=== PATIENT | female | born 1955 | race Caucasian/White ===

== ENCOUNTER 2021-01-28 11:50 | Inpatient (IN) | payer MEDICARE, MEDICAID ==
[~2021-01-28] VITALS: Ht 172.7 cm; Wt 91.3 kg
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
[2021-01-28] MEDS ORDERED: HALOPERIDOL 5 MG TABLET PO PRN (13:30)
[2021-01-28] MEDS ORDERED: DOCUSATE SODIUM 100 MG CAPSULE PO PRN (13:30)
[2021-01-28] MEDS ORDERED: NON FORMULARY ITEM (Menthol (Biofreeze) 1 APP) TP PRN (13:30)
[2021-01-28] MEDS ORDERED: DOCU-109 PO (14:13)
[2021-01-28] MEDS ORDERED: CYAN-9 PO (14:13)
[2021-01-28] MEDS ORDERED: HALO100A2 IM (14:13)
[2021-01-28] MEDS ORDERED: MELA5TAB11 SL (14:13)
[2021-01-28] MEDS ORDERED: CALC500T31 PO (14:13)
[2021-01-28] MEDS ORDERED: POLY2500 PO (14:13)
[2021-01-28] MEDS ORDERED: DIPH50CA16 PO (14:13)
[2021-01-28] MEDS ORDERED: MENT118G TP (14:13)
[2021-01-28] MEDS ORDERED: TRAZ-120 PO ×2 (14:13)
[2021-01-28] MEDS ORDERED: NYST15PO9 TP (14:13)
[2021-01-28] MEDS ORDERED: CHOL500050 PO (14:13)
[2021-01-28] MEDS ORDERED: LORA-254 PO (14:13)
[2021-01-28] MEDS ORDERED: CARB15DR65 EACHEYE (14:13)
[2021-01-28] MEDS ORDERED: METH57CR17 TP (14:13)
[2021-01-28] MEDS ORDERED: HALO5TAB PO (14:13)
[2021-01-28] MEDS ORDERED: IBUP400T99 PO (14:13)
[2021-01-28] MEDS ORDERED: ACET325T21 PO (14:13)
[2021-01-28] MEDS ORDERED: POLYETHYLENE GLYCOL 3350 17 GM PACKET. PO PRN (14:30)
[2021-01-28 15:55] VITALS: BP 135/84
--- NOTE | 2021-01-28 16:52 | EKG ---
[address] [address] Test Date: 2021-01-28 Test Time: 16:34:20 Pat Name: MENDOZA SCHULZ Department: Room: [address] [place] [address] Gender: F [employer] Manager: : 1955 Requested By: LUPE CASTELLANOS Order Number: [id number] Reading MD: Samir Landry Measurements Intervals [place] Rate: 66 P: CA: QRS: 49 QRSD: 82 T: 46 QT: 416 QTc: 438 Interpretive Statements PROBABLE SINUS RHYTHM BASELINE ARTIFACT - RECOMMEND REPEAT EKG Electronically Signed On 01-30-2021 7:21:37 CHERRY DIPPER by Samir Landry
[2021-01-28 19:52] LABS: BASO % 1 % (0-3); EOS # 0.2 x10^3/uL (0.0-0.7); EOS % 5 % (0-3); HEMATOCRIT 37.1 % (36.0-47.0); HEMOGLOBIN 12.3 g/dL (12.0-15.5); LYMPH # 1.5 x10^3/uL (1.0-4.8); LYMPH % 28 % (24-48); MEAN CORPUSCULAR HEMOGLOBIN 28 pg (25-35); MEAN CORPUSCULAR HGB CONC 33 g/dL (31-37); MEAN CORPUSCULAR VOLUME 85 fL (79-100); MONO # 0.4 x10^3/uL (0.0-1.1); MONO % 8 % (0-9); NEUT # 3.1 x10^3uL (1.8-7.7); NEUT % 59 % (31-73); PLATELET COUNT 319 x10^3/uL (140-400); RED BLOOD COUNT 4.36 x10^6/uL (3.50-5.40); RED CELL DISTRIBUTION WIDTH 14.1 % (11.5-14.5); WHITE BLOOD COUNT 5.3 x10^3/uL (4.0-11.0)
[2021-01-28 20:15] LABS: ALBUMIN 3.3 g/dL (3.4-5.0); ALBUMIN/GLOBULIN RATIO 0.9 (1.0-1.7); CALCIUM 8.6 mg/dL (8.5-10.1); POTASSIUM 3.5 mmol/L (3.5-5.1); TOTAL BILIRUBIN 0.3 mg/dL (0.2-1.0); TOTAL PROTEIN 6.8 g/dL (6.4-8.2)
--- NOTE | 2021-01-28 20:34 | PDOC ---
Exam Note: Brannon Note: Please also refer to the separate dictated note~for this date of service dictated separately.~Patient seen individually. Discussed the patient with Nursing staff reviewed the chart.~Reviewed interim history and current functioning. Reviewed vital signs,~Labs/ Radiology~and current medications noted below. Continue current treatment with the changes noted in the dictated addendum note Assessment: Vital Signs/I&O: Vital Signs Date Time Temp Pulse Resp B/P (MAP) Pulse Ox O2 Delivery O2 Flow Rate FiO2 01/28/21 15:55 98.0 77 20 135/84 (101) 96 Labs: Laboratory Tests Test 01/28/21 19:15 White Blood Count 5.3 x10^3/uL (4.0-11.0) Red Blood Count 4.36 x10^6/uL (3.50-5.40) Hemoglobin 12.3 g/dL (12.0-15.5) Hematocrit 37.1 % (36.0-47.0) Mean Corpuscular Volume 85 fL (79-100) Mean Corpuscular Hemoglobin 28 pg (25-35) Mean Corpuscular Hemoglobin Concent 33 g/dL (31-37) Red Cell Distribution Width 14.1 % (11.5-14.5) Platelet Count 319 x10^3/uL (140-400) Neutrophils (%) (Auto) 59 % (31-73) Lymphocytes (%) (Auto) 28 % (24-48) Monocytes (%) (Auto) 8 % (0-9) Eosinophils (%) (Auto) 5 % (0-3) H Basophils (%) (Auto) 1 % (0-3) Neutrophils # (Auto) 3.1 x10^3uL (1.8-7.7) Lymphocytes # (Auto) 1.5 x10^3/uL (1.0-4.8) Monocytes # (Auto) 0.4 x10^3/uL (0.0-1.1) Eosinophils # (Auto) 0.2 x10^3/uL (0.0-0.7) Basophils # (Auto) 0.0 x10^3/uL (0.0-0.2) D-Dimer (Viridiana) 0.71 mg/L (0.00-0.50) H Sodium Level 145 mmol/L (136-145) Potassium Level 3.5 mmol/L (3.5-5.1) Chloride Level 107 mmol/L (98-107) Carbon Dioxide Level 28 mmol/L (21-32) Anion Gap 10 (6-14) Blood Urea Nitrogen 10 mg/dL (7-20) Creatinine 1.0 mg/dL (0.6-1.0) Estimated GFR (Cockcroft-Gault) 56.0 BUN/Creatinine Ratio 10 (6-20) Glucose Level 101 mg/dL (70-99) H Calcium Level 8.6 mg/dL (8.5-10.1) Magnesium Level 2.0 mg/dL (1.8-2.4) Total Bilirubin 0.3 mg/dL (0.2-1.0) Aspartate Amino Transferase (AST) 8 U/L (15-37) L Alanine Aminotransferase (ALT) 15 U/L (14-59) Alkaline Phosphatase 98 U/L (46-116) Total Protein 6.8 g/dL (6.4-8.2) Albumin 3.3 g/dL (3.4-5.0) L Albumin/Globulin Ratio 0.9 (1.0-1.7) L Current Medications: I have reviewed the current psychotropics carefully including drug interactions. Risk benefit ratio favors no change other than as noted in my dictated progress note. LUPE CASTELLANOS MD Jan 28, 2021 20:34
[2021-01-28] MEDS: NYSTATIN TOPICAL POWDER 15GM BOTTLE. TP SCH (20:52)
[2021-01-28] MEDS: traZODone 50 MG TABLET. PO SCH (20:53)
[2021-01-28] MEDS: DIVALPROEX ER 500 MG TAB.ER.24H PO SCH (20:53)
[2021-01-28] MEDS: MELATONIN 3 MG TABLET PO SCH (20:53)
[2021-01-28] MEDS: METHYL SALICYLATE/MENTHOL TOPICAL OINTMENT 57GM TUBE. TP PRN (20:53)
[2021-01-28 23:16] LABS: CLARITY,URINE CLEAR; COLOR,URINE YELLOW
[2021-01-28 23:17] LABS: BACTERIA,URINE 0 /HPF (0-FEW); BILIRUBIN,URINE NEG (NEG); GLUCOSE,URINE NEG (NEG); NITRITE,URINE NEG (NEG); RBC,URINE 0 /HPF (0-2); SQUAMOUS EPITHELIAL CELL,UR FEW /LPF; UROBILINOGEN,URINE 0.2 mg/dL (0.2 mg/dL)
--- NOTE | 2021-01-28 23:59 | NUR ---
Patient is in the hallway on assumption of care, standing outside the west critical access hospital doors and staring into the window. She is delusional, demanding, restless, paranoid. She continues to insist that she is 11 years old and belongs in a pediatric hospital. Demanding to see the doctor, talk to pharmacy, have visitors, etc. Resistant to redirection. She was compliant with lab drawing her blood. Compliant only with HS Depakote, which is a new order, but refused her previously scheduled Melatonin and Trazodone, stating "It doesn't work, it just makes me stay up all night." No agitation or aggression so far this shift. Patient complained of lower back pain and requested "Biofreeze now or I'm gonna freak out!" PRN Bengay given to patient at that time, with good effect. She appears to be sleeping comfortably at present time. Will continue to continue.
[2021-01-29 05:45] VITALS: BP 106/64
[2021-01-29] MEDS: CYANOCOBALAMIN (VITAMIN B-12) 1,000 MCG TABLET. PO SCH (08:29)
[2021-01-29] MEDS: traZODone 50 MG TABLET. PO SCH ×4 (08:30→21:00)
[2021-01-29] MEDS: NYSTATIN TOPICAL POWDER 15GM BOTTLE. TP SCH ×4 (08:30→21:00)
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
[2021-01-29 12:37] LABS: THYROID STIM HORMONE (TSH) 2.442 uIU/mL (0.358-3.740)
[2021-01-29 15:35] VITALS: BP 97/68
[2021-01-29] MEDS: LORazepam 1 MG TABLET PO PRN (16:37)
[2021-01-29] MEDS: CHOLECALCIFEROL (VITAMIN D3) 50,000 UNIT CAPSULE PO SCH (16:37)
[2021-01-29] MEDS: LIDOCAINE (700MG/PATCH) PATCH. TD SCH (18:00)
[2021-01-29] MEDS: MELATONIN 3 MG TABLET PO SCH ×2 (19:37→21:00)
[2021-01-29] MEDS: PATCH REMOVAL. MC SCH (19:38)
[2021-01-29] MEDS: DIVALPROEX ER 500 MG TAB.ER.24H PO SCH ×2 (19:38→21:00)
--- NOTE | 2021-01-29 22:00 | PDOC ---
Exam Note: Brannon Note: Please also refer to the separate dictated note~for this date of service dictated separately.~Patient seen individually. Discussed the patient with Nursing staff reviewed the chart.~Reviewed interim history and current functioning. Reviewed vital signs,~Labs/ Radiology~and current medications noted below. Continue current treatment with the changes noted in the dictated addendum note Assessment: Vital Signs/I&O: Vital Signs Date Time Temp Pulse Resp B/P (MAP) Pulse Ox O2 Delivery O2 Flow Rate FiO2 01/29/21 15:35 97.7 79 16 97/68 (78) 97 01/29/21 05:45 Room Air I & O 01/28/21 01/28/21 01/29/21 15:00 23:00 07:00 Intake Total 240 ml 420 ml Balance 240 ml 420 ml Labs: Laboratory Tests Test 01/28/21 22:55 Urine Collection Type Unknown Urine Color Yellow Urine Clarity Clear Urine pH 7.5 Urine Specific [place] 1.015 Urine Protein 30 mg/dl (NEG-TRACE) Urine Glucose (UA) Neg mg/dL (NEG) Urine Ketones (Stick) Neg mg/dL (NEG) Urine Blood Small (NEG) Urine Nitrite Neg (NEG) Urine Bilirubin Neg (NEG) Urine Urobilinogen Dipstick 0.2 mg/dL (0.2 mg/dL) Urine Leukocyte Esterase Small (NEG) Urine RBC 0 /HPF (0-2) Urine WBC 1-4 /HPF (0-4) Urine Squamous Epithelial Cells Few /LPF Urine Bacteria 0 /HPF (0-FEW) Current Medications: Meds: Current Medications Medications (Trade) Dose Ordered Sig/Flavio Route PRN Reason Start Time Stop Time Status Last Admin Dose Admin Vitamin D (Vitamin D3) 50,000 unit QSA PO 01/29/21 16:00 01/29/21 16:37 Cyanocobalamin (Vitamin B-12) 1,000 mcg DAILY PO 01/29/21 09:00 01/29/21 08:29 Miscellaneous (Lidoderm Patch Removal) 1 ea QHS 01/29/21 21:00 01/29/21 19:38 I have reviewed the current psychotropics carefully including drug interactions. Risk benefit ratio favors no change other than as noted in my dictated progress note. LUPE CASTELLANOS MD Jan 29, 2021 22:00
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
[2021-01-30 05:56] VITALS: BP 107/73
[2021-01-30 06:06] LABS: THYROXINE 9.6 ug/dL (4.5-12.0)
[2021-01-30 08:07] LABS: HEMOGLOBIN A1C 6.3 % (4.8-5.6)
[2021-01-30] MEDS: traZODone 50 MG TABLET. PO SCH ×2 (08:51→19:35)
[2021-01-30] MEDS: CYANOCOBALAMIN (VITAMIN B-12) 1,000 MCG TABLET. PO SCH (08:51)
[2021-01-30] MEDS: NYSTATIN TOPICAL POWDER 15GM BOTTLE. TP SCH (09:00)
[2021-01-30] MEDS: LIDOCAINE (700MG/PATCH) PATCH. TD SCH (09:00)
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
[2021-01-30 14:57] VITALS: BP 117/77
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
[2021-01-30] MEDS ORDERED: NYSTATIN TOPICAL POWDER 15GM BOTTLE. TP PRN (19:00)
[2021-01-30] MEDS: PATCH REMOVAL. MC SCH (19:34)
[2021-01-30] MEDS: MELATONIN 3 MG TABLET PO SCH (19:35)
[2021-01-30] MEDS: DIVALPROEX ER 500 MG TAB.ER.24H PO SCH (19:35)
--- NOTE | 2021-01-30 20:53 | PDOC ---
Exam Note: Brannon Note: Please also refer to the separate dictated note~for this date of service dictated separately.~Patient seen individually. Discussed the patient with Nursing staff reviewed the chart.~Reviewed interim history and current functioning. Reviewed vital signs,~Labs/ Radiology~and current medications noted below. Continue current treatment with the changes noted in the dictated addendum note Assessment: Vital Signs/I&O: Vital Signs Date Time Temp Pulse Resp B/P (MAP) Pulse Ox O2 Delivery O2 Flow Rate FiO2 01/30/21 14:57 98.4 74 20 117/77 (90) 98 01/30/21 05:56 Room Air I & O 01/29/21 01/29/21 01/30/21 15:00 23:00 07:00 Intake Total 0 ml 360 ml Balance 0 ml 360 ml Current Medications: Meds: Current Medications Medications (Trade) Dose Ordered Sig/Flavio Route PRN Reason Start Time Stop Time Status Last Admin Dose Admin Olanzapine (ZyPREXA ZYDIS) 5 mg PRN Q2HRS PRN PO PSYCHOSIS 01/28/21 13:15 Acetaminophen (Tylenol) 650 mg PRN Q6HRS PRN PO PAIN 01/28/21 13:30 Calcium Carbonate/ Glycine (Tums) 500 mg PRN Q2HR PRN PO INDIGESTION 01/28/21 14:30 Vitamin D (Vitamin D3) 50,000 unit QSA PO 01/29/21 16:00 01/29/21 16:37 Docusate Sodium (Colace) 100 mg PRN DAILY PRN PO HARD STOOLS 01/28/21 13:30 Haloperidol (Haldol) 7.5 mg PRN Q6HRS PRN PO ANXIETY / AGITATION 01/28/21 13:30 01/28/21 20:10 DC Ibuprofen (Motrin) 400 mg PRN Q6HRS PRN PO INFLAMMATION 01/28/21 18:00 Lorazepam (Ativan) 2 mg PRN Q6HRS PRN PO ANXIETY / AGITATION 01/28/21 13:30 01/29/21 16:37 Multi-Ingredient Ointment (Analgesic Ventura) 1 bria PRN Q1HR PRN TP MUSCLE PAIN 01/28/21 13:30 01/28/21 20:53 Nystatin (Nystop) 1 bria BID TP 01/28/21 21:00 01/30/21 19:00 DC 01/28/21 20:52 Trazodone HCl (Desyrel) 25 mg DAILY PO 01/29/21 09:00 01/30/21 08:51 Trazodone HCl (Desyrel) 50 mg QHS PO 01/28/21 21:00 01/30/21 19:35 Artificial Tears (Refresh Classic) 1 drop PRN Q6HRS PRN OD DRY EYE 01/28/21 14:30 Cyanocobalamin (Vitamin B-12) 1,000 mcg DAILY PO 01/29/21 09:00 01/30/21 08:51 Diphenhydramine HCl (Benadryl) 50 mg PRN Q6HRS PRN PO ANXIETY / AGITATION 01/28/21 14:30 Haloperidol Decanoate (Haldol Decanoate Im Extended Release) 100 mg [id number] IM 02/07/21 09:00 Melatonin (Melatonin) 3 mg QHS PO 01/28/21 21:00 01/30/21 19:35 Non-Formulary Medication (Menthol (Biofreeze)) 1 bria PRN Q6HRS PRN TP PAIN 01/28/21 13:30 UNV Polyethylene Glycol (miraLAX) 17 gm PRN DAILY PRN PO CONSTIPATION 01/28/21 14:30 Divalproex Sodium (Depakote Er) 500 mg QHS PO 01/28/21 21:00 01/30/21 19:35 Lidocaine (Lidoderm) 1 patch DAILY TD 01/29/21 18:00 Miscellaneous (Lidoderm Patch Removal) 1 ea QHS MC 01/29/21 21:00 01/29/21 19:38 Nystatin (Nystop) 1 bria PRN BID PRN TP REDNESS 01/30/21 19:00 Neomycin/ Polymyxin/ Bacitracin (Triple Antibiotic Ointment) 1 pkt PRN BID PRN TP SKIN PROTECTION 01/30/21 20:30 Current Medications Medications (Trade) Dose Ordered Sig/Flavio Route PRN Reason Start Time Stop Time Status Last Admin Dose Admin Miscellaneous (Lidoderm Patch Removal) 1 ea QHS MC 01/29/21 21:00 01/29/21 19:38 I have reviewed the current psychotropics carefully including drug interactions. Risk benefit ratio favors no change other than as noted in my dictated progress note. Diagnosis: Problems: (1) Schizoaffective disorder, bipolar type (2) Impulse control disorder, unspecified (3) Anxiety disorder, unspecified (4) Schizophrenia, paranoid, chronic with acute exacerbation (5) Bipolar disorder, current episode mixed, severe, with psychotic features LUPE CASTELLANOS MD Jan 30, 2021 20:53
--- NOTE | 2021-01-30 23:45 | NUR ---
Patient is located in her room when approached for assessments and medications. She is yelling in a shrill, child-like manner "Lesly CHERRY!!! Bring me back my tea!!! GIVE IT BACK!!" When this nurse asked her to please stop yelling and explain what was wrong, she spoke so quickly it was impossible to understand her. This nurse asked her to slow down. Patient was upset that a AUTOMATION TENDER had come in and picked up some cups left over from meals off of her window sill. This nurse asked patient to please sit up and take her medications. She refused, stating "I don't take medications.....I'm here for surgery and to get the "molest-kits" from the police." This nurse informed her that she was in a psychiatric unit and that we do not perform surgeries or law enforcement duties on this floor. She continued to refuse. At that point, AUTOMATION TENDER returned with patient's iced tea in a blue straw cup. This nurse told the patient she could have her tea back as soon as she took her medications. She was compliant at that point. She appears to be sleeping comfortably at present time. Will continue to monitor.
[2021-01-31] MEDS: NEOMY/BACITR/POLYMYXIN OINT PACKET. TP PRN (02:18)
[2021-01-31] MEDS: ACETAMINOPHEN 325 MG TABLET PO PRN (02:18)
[2021-01-31] MEDS: METHYL SALICYLATE/MENTHOL TOPICAL OINTMENT 57GM TUBE. TP PRN (02:18)
[2021-01-31 05:59] VITALS: BP 104/69
[2021-01-31 06:24] LABS: BASO % 1 % (0-3); EOS # 0.3 x10^3/uL (0.0-0.7); EOS % 6 % (0-3); HEMATOCRIT 35.6 % (36.0-47.0); HEMOGLOBIN 11.6 g/dL (12.0-15.5); LYMPH # 1.5 x10^3/uL (1.0-4.8); LYMPH % 35 % (24-48); MEAN CORPUSCULAR HEMOGLOBIN 28 pg (25-35); MEAN CORPUSCULAR HGB CONC 33 g/dL (31-37); MEAN CORPUSCULAR VOLUME 85 fL (79-100); MONO # 0.4 x10^3/uL (0.0-1.1); MONO % 8 % (0-9); NEUT # 2.2 x10^3uL (1.8-7.7); NEUT % 51 % (31-73); PLATELET COUNT 284 x10^3/uL (140-400); RED BLOOD COUNT 4.19 x10^6/uL (3.50-5.40); RED CELL DISTRIBUTION WIDTH 14.2 % (11.5-14.5); WHITE BLOOD COUNT 4.4 x10^3/uL (4.0-11.0)
[2021-01-31 06:35] LABS: ALBUMIN 2.8 g/dL (3.4-5.0); ALBUMIN/GLOBULIN RATIO 0.9 (1.0-1.7); ALK PHOS 78 U/L (46-116); ALT (SGPT) 12 U/L (14-59); ANION GAP 6 (6-14); AST (SGOT) 7 U/L (15-37); BLOOD UREA NITROGEN 15 mg/dL (7-20); BUN/CREATININE RATIO 17 (6-20); CALCIUM 8.2 mg/dL (8.5-10.1); CARBON DIOXIDE 28 mmol/L (21-32); CHLORIDE 108 mmol/L (98-107); CREATININE 0.9 mg/dL (0.6-1.0); GFR 63.2; GLUCOSE 97 mg/dL (70-99); SODIUM 142 mmol/L (136-145); TOTAL BILIRUBIN 0.4 mg/dL (0.2-1.0); VAL ACID 28 mcg/mL (50-100)
--- NOTE | 2021-01-31 06:39 | PDOC ---
Exam Note: Brannon Note: This note is a late entry for 01/30/2021 covers elements not covered in my initial note. Subjective: The patient was seen individually in the evening of 01/30/2021 with Ranjeet MOFFETT, discussed and reviewed the chart. The patient slept 9-1/2 hours previous night. She has been quite anxious, labile, psychotic, intermittently compliant with psychotropics. She refused her Lidocaine patch, felt the year was 2011 and was looking for a 11-year-old. I met with her at some length in her room. She was anxious, yelling, paranoid, talking about I need to go to the purgatory. I addressed this with her and the more I talked about the more she got agitated, started yelling, screaming, loud, disruptive and psychotic. I have reviewed several pages of bizarre written notes that she has written about the police and various disorganized psychotic writing. Review of Systems: She does complain of pain. No CV, , pulmonary, eye, ENT system symptoms on review. Reliability poor. Mental Status Exam: The patient is awake, alert, oriented to herself and situation at times. Speech has some latency, loud, repetitive. Abstraction fair. Computation impaired. Language function intact. She was quite paranoid. No suicidal or homicidal ideation. She is easily distracted. Laboratory Data: Reviewed. Impression: Schizophrenia, chronic paranoid with acute exacerbation versus schizoaffective disorder, bipolar type, mixed with psychotic features. Anxiety disorder unspecified. Impulse control disorder unspecified. Plan: Continue current psychotropics. We will check valproic acid level on 01/31. Adjust Depakote to reach therapeutic level. Continue Haldol Decanoate. Consider adding Clozaril if psychotic symptoms persist despite all of the above. Assessment: Vital Signs/I&O: Vital Signs Date Time Temp Pulse Resp B/P (MAP) Pulse Ox O2 Delivery O2 Flow Rate FiO2 01/31/21 05:59 96.9 65 16 104/69 (81) 99 01/30/21 05:56 Room Air I & O 01/30/21 01/30/21 01/31/21 15:00 23:00 07:00 Intake Total 360 ml 960 ml Balance 360 ml 960 ml Labs: Laboratory Tests Test 01/31/21 06:06 White Blood Count 4.4 x10^3/uL (4.0-11.0) Red Blood Count 4.19 x10^6/uL (3.50-5.40) Hemoglobin 11.6 g/dL (12.0-15.5) L Hematocrit 35.6 % (36.0-47.0) L Mean Corpuscular Volume 85 fL (79-100) Mean Corpuscular Hemoglobin 28 pg (25-35) Mean Corpuscular Hemoglobin Concent 33 g/dL (31-37) Red Cell Distribution Width 14.2 % (11.5-14.5) Platelet Count 284 x10^3/uL (140-400) Neutrophils (%) (Auto) 51 % (31-73) Lymphocytes (%) (Auto) 35 % (24-48) Monocytes (%) (Auto) 8 % (0-9) Eosinophils (%) (Auto) 6 % (0-3) H Basophils (%) (Auto) 1 % (0-3) Neutrophils # (Auto) 2.2 x10^3uL (1.8-7.7) Lymphocytes # (Auto) 1.5 x10^3/uL (1.0-4.8) Monocytes # (Auto) 0.4 x10^3/uL (0.0-1.1) Eosinophils # (Auto) 0.3 x10^3/uL (0.0-0.7) Basophils # (Auto) 0.0 x10^3/uL (0.0-0.2) Current Medications: Meds: Laboratory Tests Test 01/31/21 06:06 White Blood Count 4.4 x10^3/uL Red Blood Count 4.19 x10^6/uL Hemoglobin 11.6 g/dL Hematocrit 35.6 % Mean Corpuscular Volume 85 fL Mean Corpuscular Hemoglobin 28 pg Mean Corpuscular Hemoglobin Concent 33 g/dL Red Cell Distribution Width 14.2 % Platelet Count 284 x10^3/uL Neutrophils (%) (Auto) 51 % Lymphocytes (%) (Auto) 35 % Monocytes (%) (Auto) 8 % Eosinophils (%) (Auto) 6 % Basophils (%) (Auto) 1 % Neutrophils # (Auto) 2.2 x10^3uL Lymphocytes # (Auto) 1.5 x10^3/uL Monocytes # (Auto) 0.4 x10^3/uL Eosinophils # (Auto) 0.3 x10^3/uL Basophils # (Auto) 0.0 x10^3/uL Current Medications Medications (Trade) Dose Ordered Sig/Flavio Route PRN Reason Start Time Stop Time Status Last Admin Dose Admin Olanzapine (ZyPREXA ZYDIS) 5 mg PRN Q2HRS PRN PO PSYCHOSIS 01/28/21 13:15 Acetaminophen (Tylenol) 650 mg PRN Q6HRS PRN PO PAIN 01/28/21 13:30 Calcium Carbonate/ Glycine (Tums) 500 mg PRN Q2HR PRN PO INDIGESTION 01/28/21 14:30 Vitamin D (Vitamin D3) 50,000 unit QSA PO 01/29/21 16:00 01/29/21 16:37 Docusate Sodium (Colace) 100 mg PRN DAILY PRN PO HARD STOOLS 01/28/21 13:30 Haloperidol (Haldol) 7.5 mg PRN Q6HRS PRN PO ANXIETY / AGITATION 01/28/21 13:30 01/28/21 20:10 DC Ibuprofen (Motrin) 400 mg PRN Q6HRS PRN PO INFLAMMATION 01/28/21 18:00 Lorazepam (Ativan) 2 mg PRN Q6HRS PRN PO ANXIETY / AGITATION 01/28/21 13:30 01/29/21 16:37 Multi-Ingredient Ointment (Analgesic Martin) 1 bria PRN Q1HR PRN TP MUSCLE PAIN 01/28/21 13:30 01/28/21 20:53 Nystatin (Nystop) 1 bria BID TP 01/28/21 21:00 01/30/21 19:00 DC 01/28/21 20:52 Trazodone HCl (Desyrel) 25 mg DAILY PO 01/29/21 09:00 01/30/21 08:51 Trazodone HCl (Desyrel) 50 mg QHS PO 01/28/21 21:00 01/30/21 19:35 Artificial Tears (Refresh Classic) 1 drop PRN Q6HRS PRN OD DRY EYE 01/28/21 14:30 Cyanocobalamin (Vitamin B-12) 1,000 mcg DAILY PO 01/29/21 09:00 01/30/21 08:51 Diphenhydramine HCl (Benadryl) 50 mg PRN Q6HRS PRN PO ANXIETY / AGITATION 01/28/21 14:30 Haloperidol Decanoate (Haldol Decanoate Im Extended Release) 100 mg [id number] IM 02/07/21 09:00 Melatonin (Melatonin) 3 mg QHS PO 01/28/21 21:00 01/30/21 19:35 Non-Formulary Medication (Menthol (Biofreeze)) 1 bria PRN Q6HRS PRN TP PAIN 01/28/21 13:30 UNV Polyethylene Glycol (miraLAX) 17 gm PRN DAILY PRN PO CONSTIPATION 01/28/21 14:30 Divalproex Sodium (Depakote Er) 500 mg QHS PO 01/28/21 21:00 01/30/21 19:35 Lidocaine (Lidoderm) 1 patch DAILY TD 01/29/21 18:00 Miscellaneous (Lidoderm Patch Removal) 1 ea QHS MC 01/29/21 21:00 01/29/21 19:38 Nystatin (Nystop) 1 bria PRN BID PRN TP REDNESS 01/30/21 19:00 Neomycin/ Polymyxin/ Bacitracin (Triple Antibiotic Ointment) 1 pkt PRN BID PRN TP SKIN PROTECTION 01/30/21 20:30 01/31/21 02:18 Current Medications Medications (Trade) Dose Ordered Sig/Flavio Route PRN Reason Start Time Stop Time Status Last Admin Dose Admin Neomycin/ Polymyxin/ Bacitracin (Triple Antibiotic Ointment) 1 pkt PRN BID PRN TP SKIN PROTECTION 01/30/21 20:30 01/31/21 02:18 I have reviewed the current psychotropics carefully including drug interactions. Risk benefit ratio favors no change other than as noted in my dictated progress note. Diagnosis: Problems: (1) Schizoaffective disorder, bipolar type (2) Impulse control disorder, unspecified (3) Anxiety disorder, unspecified (4) Schizophrenia, paranoid, chronic with acute exacerbation (5) Bipolar disorder, current episode mixed, severe, with psychotic features LUPE CASTELLANOS MD Jan 31, 2021 06:38
[2021-01-31] MEDS: CYANOCOBALAMIN (VITAMIN B-12) 1,000 MCG TABLET. PO SCH (08:32)
[2021-01-31] MEDS: traZODone 50 MG TABLET. PO SCH ×2 (08:32→20:18)
[2021-01-31] MEDS: LIDOCAINE (700MG/PATCH) PATCH. TD SCH (08:36)
[2021-01-31 10:17] LABS: BACTERIA,URINE MOD /HPF (0-FEW); BILIRUBIN,URINE NEG (NEG); CLARITY,URINE HAZY; COLOR,URINE YELLOW; GLUCOSE,URINE NEG (NEG); NITRITE,URINE NEG (NEG); RBC,URINE OCC /HPF (0-2); SQUAMOUS EPITHELIAL CELL,UR MANY /LPF; UROBILINOGEN,URINE 0.2 mg/dL (0.2 mg/dL)
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
--- NOTE | 2021-01-31 11:15 | NUR ---
SONYA contacted Kerri, pt guardian, to question her about the court date slotted for today. Rodney was not sure about a court date; therefore, SONYA filled her in re: the phone call with switchgear repairer Francois Madrigal and there being a court date at 1335 today. SONYA went over the conversation and noted that pt was not appropriate to participate in the court date as she is highly psychotic right now and believes herself to be [age] years old. Kerri reports that she has been pt court appointed guardian for the last five years; however, pt will refuse to admit that Rodney is her guardian. Rodney has known pt for longer as she did contract work at [place] and has seen pt there over the years. "she's lived there for 15 years and then wanted to integrate her out. Obviously wasn't a good decision because she has been struggling ever since". If anything more is to come up, SONYA will contact Rodney with the updates.
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
--- NOTE | 2021-01-31 13:45 | NUR ---
SW was asked to participate in the court meeting as pt is here on [facility]. SW was able to call in on the Zoom meeting and informed the court that pt was not present with SW as she is very upset and adamant that court is not today but tomorrow stating "Today is Sunday and I have court on Sunday. I can't go to court yet because God is coming and he is not here to represent me yet". The engineering mgr Ashwin Tucker noted SW statement and asked pt medical center representative/skills instructor Francois Madrigal if he was okay with pt not being present. Francois agreed in that pt stated the same thing to him this morning as he attempted to speak with pt along with a few other things that he does not feel is appropriate for pt to be present. Also at the court hearing were representatives with [facility] and the medical center representative from [facility] who completed pt assessment. It was noted that the temporary custody order will be granted as pt is seen as mentally ill and will transfer to [place] once she is able to come off the wait list. No further court date has been noted at this time.
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
--- NOTE | 2021-01-31 15:35 | NUR ---
Nursing note: Patient in bedroom for morning medication and assessment. She is compliant with medication. She is delusional, demanding, restless, paranoid. She continues to insist that she is 11 years old and belongs in a pediatric hospital. Patient reported 5/10 lower back pain, pain patch applied per order. She is currently laying in bed. Will continue to monitor. Addendum: 01/31/21 at 1719 by SUSANA WILLIAM RN RN Patient highly dysregulated r/t not being able to talk with her secondary social studies teacher when she wanted to. She was yelling unintelligible, attempted to throw her papers at staff, & disrupting unit; PRN given per order. She refused dinner after taking a few bites. Addendum: 01/31/21 at 1730 by SUSANA WILLIAM RN RN Patient became PA towards staff, kicking, punching, and pulling on them.
[2021-01-31 15:44] VITALS: BP 122/78
[2021-01-31] MEDS: LORazepam 1 MG TABLET PO PRN (16:51)
[2021-01-31] MEDS: PATCH REMOVAL. MC SCH (20:18)
[2021-01-31] MEDS: MELATONIN 3 MG TABLET PO SCH (20:18)
[2021-01-31] MEDS: DIVALPROEX ER 500 MG TAB.ER.24H PO SCH ×2 (20:22→21:00)
[2021-01-31] MEDS: cloZAPine 25 MG TABLET PO SCH (20:23)
--- NOTE | 2021-01-31 20:35 | NUR ---
Patient laying in bed when nurse entered room for med pass. Patient refused to take her medication and called nurse ash sparks. She stated that the Dr had taken her off Depakote and that she WILL NOT take Clozaril because it will kill her. Nurse provided education regarding Depakote and Clozaril, patient then told the nurse to get out of her room and called nurse ash sparks a second time. Patient asked for PRN Ativan, nurse told her she could have it if she took her scheduled medications (she refused them again). Patient advised that when she decided to take her medications, nurse would have it at [facility] for her.
--- NOTE | 2021-01-31 21:06 | PDOC ---
Exam Note: Brannon Note: Please also refer to the separate dictated note~for this date of service dictated separately.~Patient seen individually. Discussed the patient with Nursing staff reviewed the chart.~Reviewed interim history and current functioning. Reviewed vital signs,~Labs/ Radiology~and current medications noted below. Continue current treatment with the changes noted in the dictated addendum note Assessment: Vital Signs/I&O: Vital Signs Date Time Temp Pulse Resp B/P (MAP) Pulse Ox O2 Delivery O2 Flow Rate FiO2 01/31/21 15:44 97.9 84 20 122/78 (93) 96 01/30/21 05:56 Room Air I & O 01/30/21 01/30/21 01/31/21 15:00 23:00 07:00 Intake Total 360 ml 960 ml Balance 360 ml 960 ml Labs: Laboratory Tests Test 01/31/21 06:06 01/31/21 08:30 White Blood Count 4.4 x10^3/uL (4.0-11.0) Red Blood Count 4.19 x10^6/uL (3.50-5.40) Hemoglobin 11.6 g/dL (12.0-15.5) L Hematocrit 35.6 % (36.0-47.0) L Mean Corpuscular Volume 85 fL (79-100) Mean Corpuscular Hemoglobin 28 pg (25-35) Mean Corpuscular Hemoglobin Concent 33 g/dL (31-37) Red Cell Distribution Width 14.2 % (11.5-14.5) Platelet Count 284 x10^3/uL (140-400) Neutrophils (%) (Auto) 51 % (31-73) Lymphocytes (%) (Auto) 35 % (24-48) Monocytes (%) (Auto) 8 % (0-9) Eosinophils (%) (Auto) 6 % (0-3) H Basophils (%) (Auto) 1 % (0-3) Neutrophils # (Auto) 2.2 x10^3uL (1.8-7.7) Lymphocytes # (Auto) 1.5 x10^3/uL (1.0-4.8) Monocytes # (Auto) 0.4 x10^3/uL (0.0-1.1) Eosinophils # (Auto) 0.3 x10^3/uL (0.0-0.7) Basophils # (Auto) 0.0 x10^3/uL (0.0-0.2) Sodium Level 142 mmol/L (136-145) Potassium Level 4.0 mmol/L (3.5-5.1) Chloride Level 108 mmol/L (98-107) H Carbon Dioxide Level 28 mmol/L (21-32) Anion Gap 6 (6-14) Blood Urea Nitrogen 15 mg/dL (7-20) Creatinine 0.9 mg/dL (0.6-1.0) Estimated GFR (Cockcroft-Gault) 63.2 BUN/Creatinine Ratio 17 (6-20) Glucose Level 97 mg/dL (70-99) Calcium Level 8.2 mg/dL (8.5-10.1) L Total Bilirubin 0.4 mg/dL (0.2-1.0) Aspartate Amino Transferase (AST) 7 U/L (15-37) L Alanine Aminotransferase (ALT) 12 U/L (14-59) L Alkaline Phosphatase 78 U/L (46-116) Total Protein 6.0 g/dL (6.4-8.2) L Albumin 2.8 g/dL (3.4-5.0) L Albumin/Globulin Ratio 0.9 (1.0-1.7) L Valproic Acid Level 28 mcg/mL (50-100) L Valproic Acid Last Dose Date 01/30/21 Valproic Acid Last Dose Time 2100 Urine Collection Type Unknown Urine Color Yellow Urine Clarity Hazy Urine pH 6.0 Urine Specific [place] 1.025 Urine Protein Neg (NEG-TRACE) Urine Glucose (UA) Neg mg/dL (NEG) Urine Ketones (Stick) Neg mg/dL (NEG) Urine Blood Neg (NEG) Urine Nitrite Neg (NEG) Urine Bilirubin Neg (NEG) Urine Urobilinogen Dipstick 0.2 mg/dL (0.2 mg/dL) Urine Leukocyte Esterase Small (NEG) Urine RBC Occ /HPF (0-2) Urine WBC 5-10 /HPF (0-4) Urine Squamous Epithelial Cells Many /LPF Urine Bacteria Mod /HPF (0-FEW) Urine Mucus Slight /LPF Current Medications: Meds: Laboratory Tests Test 01/31/21 06:06 01/31/21 08:30 White Blood Count 4.4 x10^3/uL Red Blood Count 4.19 x10^6/uL Hemoglobin 11.6 g/dL Hematocrit 35.6 % Mean Corpuscular Volume 85 fL Mean Corpuscular Hemoglobin 28 pg Mean Corpuscular Hemoglobin Concent 33 g/dL Red Cell Distribution Width 14.2 % Platelet Count 284 x10^3/uL Neutrophils (%) (Auto) 51 % Lymphocytes (%) (Auto) 35 % Monocytes (%) (Auto) 8 % Eosinophils (%) (Auto) 6 % Basophils (%) (Auto) 1 % Neutrophils # (Auto) 2.2 x10^3uL Lymphocytes # (Auto) 1.5 x10^3/uL Monocytes # (Auto) 0.4 x10^3/uL Eosinophils # (Auto) 0.3 x10^3/uL Basophils # (Auto) 0.0 x10^3/uL Sodium Level 142 mmol/L Potassium Level 4.0 mmol/L Chloride Level 108 mmol/L Carbon Dioxide Level 28 mmol/L Anion Gap 6 Blood Urea Nitrogen 15 mg/dL Creatinine 0.9 mg/dL Estimated GFR (Cockcroft-Gault) 63.2 BUN/Creatinine Ratio 17 Glucose Level 97 mg/dL Calcium Level 8.2 mg/dL Total Bilirubin 0.4 mg/dL Aspartate Amino Transf (AST/SGOT) 7 U/L Alanine Aminotransferase (ALT/SGPT) 12 U/L Alkaline Phosphatase 78 U/L Total Protein 6.0 g/dL Albumin 2.8 g/dL Albumin/Globulin Ratio 0.9 Valproic Acid (Depakene) Level 28 mcg/mL Valproic Acid Last Dose Date 01/30/21 Valproic Acid Last Dose Time 2100 Urine Collection Type Unknown Urine Color Yellow Urine Clarity Hazy Urine pH 6.0 Urine Specific [place] 1.025 Urine Protein Neg Urine Glucose (UA) Neg mg/dL Urine Ketones (Stick) Neg mg/dL Urine Blood Neg Urine Nitrite Neg Urine Bilirubin Neg Urine Urobilinogen Dipstick 0.2 mg/dL Urine Leukocyte Esterase Small Urine RBC Occ /HPF Urine WBC 5-10 /HPF Urine Squamous Epithelial Cells Many /LPF Urine Bacteria Mod /HPF Urine Mucus Slight /LPF Current Medications Medications (Trade) Dose Ordered Sig/Flavio Route PRN Reason Start Time Stop Time Status Last Admin Dose Admin Olanzapine (ZyPREXA ZYDIS) 5 mg PRN Q2HRS PRN PO PSYCHOSIS 01/28/21 13:15 Acetaminophen (Tylenol) 650 mg PRN Q6HRS PRN PO PAIN 01/28/21 13:30 Calcium Carbonate/ Glycine (Tums) 500 mg PRN Q2HR PRN PO INDIGESTION 01/28/21 14:30 Vitamin D (Vitamin D3) 50,000 unit QSA PO 01/29/21 16:00 01/29/21 16:37 Docusate Sodium (Colace) 100 mg PRN DAILY PRN PO HARD STOOLS 01/28/21 13:30 Haloperidol (Haldol) 7.5 mg PRN Q6HRS PRN PO ANXIETY / AGITATION 01/28/21 13:30 01/28/21 20:10 DC Ibuprofen (Motrin) 400 mg PRN Q6HRS PRN PO INFLAMMATION 01/28/21 18:00 Lorazepam (Ativan) 2 mg PRN Q6HRS PRN PO ANXIETY / AGITATION 01/28/21 13:30 01/31/21 16:51 Multi-Ingredient Ointment (Analgesic [place]) 1 bria PRN Q1HR PRN TP MUSCLE PAIN 01/28/21 13:30 01/28/21 20:53 Nystatin (Nystop) 1 bria BID TP 01/28/21 21:00 01/30/21 19:00 DC 01/28/21 20:52 Trazodone HCl (Desyrel) 25 mg DAILY PO 01/29/21 09:00 01/31/21 08:32 Trazodone HCl (Desyrel) 50 mg QHS PO 01/28/21 21:00 01/31/21 20:18 Artificial Tears (Refresh Classic) 1 drop PRN Q6HRS PRN OD DRY EYE 01/28/21 14:30 Cyanocobalamin (Vitamin B-12) 1,000 mcg DAILY PO 01/29/21 09:00 01/31/21 08:32 Diphenhydramine HCl (Benadryl) 50 mg PRN Q6HRS PRN PO ANXIETY / AGITATION 01/28/21 14:30 Haloperidol Decanoate (Haldol Decanoate Im Extended Release) 100 mg [id number] IM 02/07/21 09:00 Melatonin (Melatonin) 3 mg QHS PO 01/28/21 21:00 01/31/21 20:18 Non-Formulary Medication (Menthol (Biofreeze)) 1 bria PRN Q6HRS PRN TP PAIN 01/28/21 13:30 UNV Polyethylene Glycol (miraLAX) 17 gm PRN DAILY PRN PO CONSTIPATION 01/28/21 14:30 Divalproex Sodium (Depakote Er) 500 mg QHS PO 01/28/21 21:00 01/31/21 12:21 DC 01/30/21 19:35 Lidocaine (Lidoderm) 1 patch DAILY TD 01/29/21 18:00 01/31/21 08:36 Miscellaneous (Lidoderm Patch Removal) 1 ea QHS MC 01/29/21 21:00 01/31/21 20:18 Nystatin (Nystop) 1 bria PRN BID PRN TP REDNESS 01/30/21 19:00 Neomycin/ Polymyxin/ Bacitracin (Triple Antibiotic Ointment) 1 pkt PRN BID PRN TP SKIN PROTECTION 01/30/21 20:30 01/31/21 02:18 Divalproex Sodium (Depakote Er) 1,000 mg QHS PO 01/31/21 21:00 01/31/21 20:22 Clozapine (Clozaril) 25 mg QHS PO 01/31/21 21:00 01/31/21 20:23 Current Medications Medications (Trade) Dose Ordered Sig/Flavio Route PRN Reason Start Time Stop Time Status Last Admin Dose Admin Divalproex Sodium (Depakote Er) 1,000 mg QHS PO 01/31/21 21:00 01/31/21 20:22 Clozapine (Clozaril) 25 mg QHS PO 01/31/21 21:00 01/31/21 20:23 I have reviewed the current psychotropics carefully including drug interactions. Risk benefit ratio favors no change other than as noted in my dictated progress note. Diagnosis: Problems: (1) Schizoaffective disorder, bipolar type (2) Impulse control disorder, unspecified (3) Anxiety disorder, unspecified (4) Schizophrenia, paranoid, chronic with acute exacerbation (5) Bipolar disorder, current episode mixed, severe, with psychotic features LUPE CASTELLANOS MD Jan 31, 2021 21:06
[2021-01-31] MEDS: diphenhydrAMINE HCL 25 MG CAPSULE PO PRN (22:58)
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
[2021-02-01] MEDS: LORazepam 1 MG TABLET PO PRN (01:33)
--- NOTE | 2021-02-01 01:41 | NUR ---
Patient continues to yell, scream and carry on. She has woken up peers on each side of her room. Patient is insisting that she is 11 years old and "just a little kid". Patient refused to take PRN medications voluntarily and was hitting and kicking staff while yelling and cursing. Patient was syringed Ativan for agitation and Zyprexa for psychosis/aggression per orders. Will continue to monitor.
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
[2021-02-01] MEDS: CYANOCOBALAMIN (VITAMIN B-12) 1,000 MCG TABLET. PO SCH (08:18)
[2021-02-01] MEDS: traZODone 50 MG TABLET. PO SCH ×2 (08:20→21:23)
[2021-02-01] MEDS: LIDOCAINE (700MG/PATCH) PATCH. TD SCH (08:20)
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
[2021-02-01] MEDS: diphenhydrAMINE HCL 25 MG CAPSULE PO PRN ×2 (14:07→21:45)
--- NOTE | 2021-02-01 17:34 | NUR ---
Nursing note: Patient in bedroom for morning medication and assessment. She is noncompliant with medication, she refused her Trazodone. She is delusional, demanding, restless, paranoid. She continues to insist that she is 11 years old and belongs in a pediatric hospital. Patient reported 4/10 lower back pain, she refused pain patch. She reported she is allergic to light & orange juice. Patient isolates herself to her room, only comes to hallway for meals. She dysregulated when talking to protective services social worker, PRN given per order. She is currently laying in bed. Will continue to monitor.
--- NOTE | 2021-02-01 20:51 | PDOC ---
Exam Note: Brannon Note: Please also refer to the separate dictated note~for this date of service dictated separately.~Patient seen individually. Discussed the patient with Nursing staff reviewed the chart.~Reviewed interim history and current functioning. Reviewed vital signs,~Labs/ Radiology~and current medications noted below. Continue current treatment with the changes noted in the dictated addendum note Assessment: Vital Signs/I&O: Vital Signs Date Time Temp Pulse Resp B/P (MAP) Pulse Ox O2 Delivery O2 Flow Rate FiO2 01/31/21 15:44 97.9 84 20 122/78 (93) 96 01/30/21 05:56 Room Air I & O 01/31/21 01/31/21 02/01/21 14:59 22:59 06:59 Intake Total 480 ml 240 ml 0 ml Balance 480 ml 240 ml 0 ml Current Medications: Meds: Current Medications Medications (Trade) Dose Ordered Sig/Flavio Route PRN Reason Start Time Stop Time Status Last Admin Dose Admin Olanzapine (ZyPREXA ZYDIS) 5 mg PRN Q2HRS PRN PO PSYCHOSIS 01/28/21 13:15 02/01/21 01:33 Acetaminophen (Tylenol) 650 mg PRN Q6HRS PRN PO PAIN 01/28/21 13:30 Calcium Carbonate/ Glycine (Tums) 500 mg PRN Q2HR PRN PO INDIGESTION 01/28/21 14:30 Vitamin D (Vitamin D3) 50,000 unit QSA PO 01/29/21 16:00 01/29/21 16:37 Docusate Sodium (Colace) 100 mg PRN DAILY PRN PO HARD STOOLS 01/28/21 13:30 Haloperidol (Haldol) 7.5 mg PRN Q6HRS PRN PO ANXIETY / AGITATION 01/28/21 13:30 01/28/21 20:10 DC Ibuprofen (Motrin) 400 mg PRN Q6HRS PRN PO INFLAMMATION 01/28/21 18:00 Lorazepam (Ativan) 2 mg PRN Q6HRS PRN PO 2ND CHOICE ANXIETY/AGITATION 01/28/21 13:30 02/01/21 01:33 Multi-Ingredient Ointment (Analgesic [place]) 1 bria PRN Q1HR PRN TP MUSCLE PAIN 01/28/21 13:30 01/28/21 20:53 Nystatin (Nystop) 1 bria BID TP 01/28/21 21:00 01/30/21 19:00 DC 01/28/21 20:52 Trazodone HCl (Desyrel) 25 mg DAILY PO 01/29/21 09:00 01/31/21 08:32 Trazodone HCl (Desyrel) 50 mg QHS PO 01/28/21 21:00 01/31/21 20:18 Artificial Tears (Refresh Classic) 1 drop PRN Q6HRS PRN OD DRY EYE 01/28/21 14:30 Cyanocobalamin (Vitamin B-12) 1,000 mcg DAILY PO 01/29/21 09:00 02/01/21 08:18 Diphenhydramine HCl (Benadryl) 50 mg PRN Q6HRS PRN PO 1ST CHOICE ANXIETY/AGITATION 01/28/21 14:30 02/01/21 14:07 Haloperidol Decanoate (Haldol Decanoate Im Extended Release) 100 mg [id number] IM 02/07/21 09:00 Melatonin (Melatonin) 3 mg QHS PO 01/28/21 21:00 01/31/21 20:18 Non-Formulary Medication (Menthol (Biofreeze)) 1 bria PRN Q6HRS PRN TP PAIN 01/28/21 13:30 UNV Polyethylene Glycol (miraLAX) 17 gm PRN DAILY PRN PO CONSTIPATION 01/28/21 14:30 Divalproex Sodium (Depakote Er) 500 mg QHS PO 01/28/21 21:00 01/31/21 12:21 DC 01/30/21 19:35 Lidocaine (Lidoderm) 1 patch DAILY TD 01/29/21 18:00 01/31/21 08:36 Miscellaneous (Lidoderm Patch Removal) 1 ea QHS MC 01/29/21 21:00 01/31/21 20:18 Nystatin (Nystop) 1 bria PRN BID PRN TP REDNESS 01/30/21 19:00 Neomycin/ Polymyxin/ Bacitracin (Triple Antibiotic Ointment) 1 pkt PRN BID PRN TP SKIN PROTECTION 01/30/21 20:30 01/31/21 02:18 Divalproex Sodium (Depakote Er) 1,000 mg QHS PO 01/31/21 21:00 Clozapine (Clozaril) 25 mg QHS PO 01/31/21 21:00 01/31/21 20:23 Current Medications Medications (Trade) Dose Ordered Sig/Flavio Route PRN Reason Start Time Stop Time Status Last Admin Dose Admin Clozapine (Clozaril) 25 mg QHS PO 01/31/21 21:00 01/31/21 20:23 I have reviewed the current psychotropics carefully including drug interactions. Risk benefit ratio favors no change other than as noted in my dictated progress note. Diagnosis: Problems: (1) Schizoaffective disorder, bipolar type (2) Impulse control disorder, unspecified (3) Anxiety disorder, unspecified (4) Schizophrenia, paranoid, chronic with acute exacerbation (5) Bipolar disorder, current episode mixed, severe, with psychotic features LUPE CASTELLANOS MD Feb 01, 2021 20:51
[2021-02-01] MEDS: DIVALPROEX ER 500 MG TAB.ER.24H PO SCH ×3 (21:00→21:47)
[2021-02-01] MEDS: PATCH REMOVAL. MC SCH (21:22)
[2021-02-01] MEDS: cloZAPine 25 MG TABLET PO SCH (21:23)
[2021-02-01] MEDS: MELATONIN 3 MG TABLET PO SCH (21:23)
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
[2021-02-02] MEDS: LORazepam 1 MG TABLET PO PRN (01:21)
[2021-02-02] MEDS: ACETAMINOPHEN 325 MG TABLET PO PRN (01:24)
[2021-02-02 06:41] VITALS: BP 108/70
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
--- NOTE | 2021-02-02 08:54 | PDOC ---
Exam Note: Brannon Note: This note is a late entry for 02/01/2021 covers elements not covered in my initial note. Subjective: The patient was seen individually in the evening of 02/01/2021 with Dina MOFFETT, discussed and reviewed the chart. The patient did not sleep at all previous night. She refused her h.s. medications, then received it by syringing at around midnight. She was yelling, screaming, kicking, hitting at a staff member. This morning received Ativan, Zyprexa. She only comes out for meals, otherwise, withdrawn to her room, psychotic. Received Benadryl at 1407 hours and has Lidoderm patch. Review of Systems: No CV, , pulmonary, eye, ENT system symptoms on review. Reliability poor. Mental Status Exam: The patient is oriented to herself and situation. Speech can be rapid, loud. Abstraction fair. Computation impaired. Language function intact. Mood and affect withdrawn. Laboratory Data: Reviewed. Impression: Schizophrenia, chronic paranoid with acute exacerbation versus schizoaffective disorder, bipolar type, mixed with psychotic features. Anxiety disorder unspecified. Impulse control disorder unspecified. Plan: Maintain rest psychotropics unchanged. Adjust as clinically indicated. Assessment: Vital Signs/I&O: Vital Signs Date Time Temp Pulse Resp B/P (MAP) Pulse Ox O2 Delivery O2 Flow Rate FiO2 02/02/21 06:41 97.2 61 18 108/70 (83) 95 01/30/21 05:56 Room Air I & O 02/01/21 02/01/21 02/02/21 15:00 23:00 07:00 Intake Total 380 ml 200 ml Balance 380 ml 200 ml Current Medications: Meds: Current Medications Medications (Trade) Dose Ordered Sig/Flavio Route PRN Reason Start Time Stop Time Status Last Admin Dose Admin Olanzapine (ZyPREXA ZYDIS) 5 mg PRN Q2HRS PRN PO PSYCHOSIS 01/28/21 13:15 02/02/21 01:21 Acetaminophen (Tylenol) 650 mg PRN Q6HRS PRN PO PAIN 01/28/21 13:30 02/02/21 01:24 Calcium Carbonate/ Glycine (Tums) 500 mg PRN Q2HR PRN PO INDIGESTION 01/28/21 14:30 Vitamin D (Vitamin D3) 50,000 unit QSA PO 01/29/21 16:00 01/29/21 16:37 Docusate Sodium (Colace) 100 mg PRN DAILY PRN PO HARD STOOLS 01/28/21 13:30 Haloperidol (Haldol) 7.5 mg PRN Q6HRS PRN PO ANXIETY / AGITATION 01/28/21 13:30 01/28/21 20:10 DC Ibuprofen (Motrin) 400 mg PRN Q6HRS PRN PO INFLAMMATION 01/28/21 18:00 Lorazepam (Ativan) 2 mg PRN Q6HRS PRN PO 2ND CHOICE ANXIETY/AGITATION 01/28/21 13:30 02/02/21 01:21 Multi-Ingredient Ointment (Analgesic [place]) 1 bria PRN Q1HR PRN TP MUSCLE PAIN 01/28/21 13:30 01/28/21 20:53 Nystatin (Nystop) 1 bria BID TP 01/28/21 21:00 01/30/21 19:00 DC 01/28/21 20:52 Trazodone HCl (Desyrel) 25 mg DAILY PO 01/29/21 09:00 01/31/21 08:32 Trazodone HCl (Desyrel) 50 mg QHS PO 01/28/21 21:00 02/01/21 21:23 Artificial Tears (Refresh Classic) 1 drop PRN Q6HRS PRN OD DRY EYE 01/28/21 14:30 Cyanocobalamin (Vitamin B-12) 1,000 mcg DAILY PO 01/29/21 09:00 02/01/21 08:18 Diphenhydramine HCl (Benadryl) 50 mg PRN Q6HRS PRN PO 1ST CHOICE ANXIETY/AGITATION 01/28/21 14:30 02/01/21 21:45 Haloperidol Decanoate (Haldol Decanoate Im Extended Release) 100 mg [id number] IM 02/07/21 09:00 Melatonin (Melatonin) 3 mg QHS PO 01/28/21 21:00 02/01/21 21:23 Non-Formulary Medication (Menthol (Biofreeze)) 1 bria PRN Q6HRS PRN TP PAIN 01/28/21 13:30 UNV Polyethylene Glycol (miraLAX) 17 gm PRN DAILY PRN PO CONSTIPATION 01/28/21 14:30 Divalproex Sodium (Depakote Er) 500 mg QHS PO 01/28/21 21:00 01/31/21 12:21 DC 01/30/21 19:35 Lidocaine (Lidoderm) 1 patch DAILY TD 01/29/21 18:00 01/31/21 08:36 Miscellaneous (Lidoderm Patch Removal) 1 ea QHS MC 01/29/21 21:00 01/31/21 20:18 Nystatin (Nystop) 1 bria PRN BID PRN TP REDNESS 01/30/21 19:00 Neomycin/ Polymyxin/ Bacitracin (Triple Antibiotic Ointment) 1 pkt PRN BID PRN TP SKIN PROTECTION 01/30/21 20:30 01/31/21 02:18 Divalproex Sodium (Depakote Er) 1,000 mg QHS PO 01/31/21 21:00 Clozapine (Clozaril) 25 mg QHS PO 01/31/21 21:00 02/01/21 21:23 I have reviewed the current psychotropics carefully including drug interactions. Risk benefit ratio favors no change other than as noted in my dictated progress note. Diagnosis: Problems: (1) Schizoaffective disorder, bipolar type (2) Impulse control disorder, unspecified (3) Anxiety disorder, unspecified (4) Schizophrenia, paranoid, chronic with acute exacerbation (5) Bipolar disorder, current episode mixed, severe, with psychotic features LUPE CASTELLANOS MD Feb 02, 2021 08:54
[2021-02-02] MEDS: CYANOCOBALAMIN (VITAMIN B-12) 1,000 MCG TABLET. PO SCH (12:04)
[2021-02-02] MEDS: traZODone 50 MG TABLET. PO SCH (12:04)
[2021-02-02] MEDS: LIDOCAINE (700MG/PATCH) PATCH. TD SCH (12:05)
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
[2021-02-02 15:48] VITALS: BP 98/55
[2021-02-02] MEDS ORDERED: traZODone 50 MG TABLET. PO PRN (18:45)
--- NOTE | 2021-02-02 20:42 | PDOC ---
Exam Note: Brannon Note: Please also refer to the separate dictated note~for this date of service dictated separately.~Patient seen individually. Discussed the patient with Nursing staff reviewed the chart.~Reviewed interim history and current functioning. Reviewed vital signs,~Labs/ Radiology~and current medications noted below. Continue current treatment with the changes noted in the dictated addendum note Assessment: Vital Signs/I&O: Vital Signs Date Time Temp Pulse Resp B/P (MAP) Pulse Ox O2 Delivery O2 Flow Rate FiO2 02/02/21 15:48 97.7 61 16 98/55 (69) 96 Room Air I & O 02/01/21 02/01/21 02/02/21 15:00 23:00 07:00 Intake Total 380 ml 200 ml Balance 380 ml 200 ml Current Medications: Meds: Current Medications Medications (Trade) Dose Ordered Sig/Flavio Route PRN Reason Start Time Stop Time Status Last Admin Dose Admin Olanzapine (ZyPREXA ZYDIS) 5 mg PRN Q2HRS PRN PO PSYCHOSIS 01/28/21 13:15 02/02/21 01:21 Acetaminophen (Tylenol) 650 mg PRN Q6HRS PRN PO PAIN 01/28/21 13:30 02/02/21 01:24 Calcium Carbonate/ Glycine (Tums) 500 mg PRN Q2HR PRN PO INDIGESTION 01/28/21 14:30 Vitamin D (Vitamin D3) 50,000 unit QSA PO 01/29/21 16:00 01/29/21 16:37 Docusate Sodium (Colace) 100 mg PRN DAILY PRN PO HARD STOOLS 01/28/21 13:30 Haloperidol (Haldol) 7.5 mg PRN Q6HRS PRN PO ANXIETY / AGITATION 01/28/21 13:30 01/28/21 20:10 DC Ibuprofen (Motrin) 400 mg PRN Q6HRS PRN PO INFLAMMATION 01/28/21 18:00 Lorazepam (Ativan) 2 mg PRN Q6HRS PRN PO 2ND CHOICE ANXIETY/AGITATION 01/28/21 13:30 02/02/21 01:21 Multi-Ingredient Ointment (Analgesic [place]) 1 bria PRN Q1HR PRN TP MUSCLE PAIN 01/28/21 13:30 01/28/21 20:53 Nystatin (Nystop) 1 bria BID TP 01/28/21 21:00 11/21/21 19:00 DC 01/28/21 20:52 Trazodone HCl (Desyrel) 25 mg DAILY PO 01/29/21 09:00 01/31/21 08:32 Trazodone HCl (Desyrel) 50 mg QHS PO 01/28/21 21:00 02/02/21 18:38 DC 02/01/21 21:23 Artificial Tears (Refresh Classic) 1 drop PRN Q6HRS PRN OD DRY EYE 01/28/21 14:30 Cyanocobalamin (Vitamin B-12) 1,000 mcg DAILY PO 01/29/21 09:00 02/02/21 12:04 Diphenhydramine HCl (Benadryl) 50 mg PRN Q6HRS PRN PO 1ST CHOICE ANXIETY/AGITATION 01/28/21 14:30 02/01/21 21:45 Haloperidol Decanoate (Haldol Decanoate Im Extended Release) 100 mg [id number] IM 02/07/21 09:00 Melatonin (Melatonin) 3 mg QHS PO 01/28/21 21:00 02/01/21 21:23 Non-Formulary Medication (Menthol (Biofreeze)) 1 bria PRN Q6HRS PRN TP PAIN 01/28/21 13:30 UNV Polyethylene Glycol (miraLAX) 17 gm PRN DAILY PRN PO CONSTIPATION 01/28/21 14:30 Divalproex Sodium (Depakote Er) 500 mg QHS PO 01/28/21 21:00 01/31/21 12:21 DC 01/30/21 19:35 Lidocaine (Lidoderm) 1 patch DAILY TD 01/29/21 18:00 02/02/21 12:05 Miscellaneous (Lidoderm Patch Removal) 1 ea QHS MC 01/29/21 21:00 01/31/21 20:18 Nystatin (Nystop) 1 bria PRN BID PRN TP REDNESS 01/30/21 19:00 Neomycin/ Polymyxin/ Bacitracin (Triple Antibiotic Ointment) 1 pkt PRN BID PRN TP SKIN PROTECTION 01/30/21 20:30 01/31/21 02:18 Divalproex Sodium (Depakote Er) 1,000 mg QHS PO 01/31/21 21:00 Clozapine (Clozaril) 25 mg QHS PO 01/31/21 21:00 02/01/21 21:23 Trazodone HCl (Desyrel) 50 mg PRN QHS PRN PO INSOMNIA, MAY REPEAT X1 02/02/21 18:45 Mirtazapine (Remeron) 7.5 mg QHS PO 02/02/21 21:00 I have reviewed the current psychotropics carefully including drug interactions. Risk benefit ratio favors no change other than as noted in my dictated progress note. Diagnosis: Problems: (1) Schizoaffective disorder, bipolar type (2) Impulse control disorder, unspecified (3) Anxiety disorder, unspecified (4) Schizophrenia, paranoid, chronic with acute exacerbation (5) Bipolar disorder, current episode mixed, severe, with psychotic features LUPE CASTELLANOS MD Feb 02, 2021 20:42
--- NOTE | 2021-02-02 21:47 | NUR ---
Patient has been sleeping since this nurse came on duty. Will give medications when patient wakes up.
[2021-02-03] MEDS: cloZAPine 25 MG TABLET PO SCH ×3 (00:22→21:00)
[2021-02-03] MEDS: PATCH REMOVAL. MC SCH ×2 (00:22→21:00)
[2021-02-03] MEDS: DIVALPROEX ER 500 MG TAB.ER.24H PO SCH ×3 (00:22→21:00)
[2021-02-03] MEDS: MELATONIN 3 MG TABLET PO SCH ×3 (00:23→21:00)
[2021-02-03] MEDS: MIRTAZAPINE 7.5 MG TABLET. PO SCH ×3 (00:23→21:00)
--- NOTE | 2021-02-03 00:26 | NUR ---
Patient continues to sleep. HS medications not administered. Will continue to monitor.
[2021-02-03] MEDS: traZODone 50 MG TABLET. PO SCH (09:50)
[2021-02-03] MEDS: LIDOCAINE (700MG/PATCH) PATCH. TD SCH (09:53)
[2021-02-03] MEDS: CYANOCOBALAMIN (VITAMIN B-12) 1,000 MCG TABLET. PO SCH (09:53)
[2021-02-03 15:38] VITALS: BP 115/74
--- NOTE | 2021-02-03 21:06 | PDOC ---
Exam Note: Brannon Note: Please also refer to the separate dictated note~for this date of service dictated separately.~Patient seen individually. Discussed the patient with Nursing staff reviewed the chart.~Reviewed interim history and current functioning. Reviewed vital signs,~Labs/ Radiology~and current medications noted below. Continue current treatment with the changes noted in the dictated addendum note Assessment: Vital Signs/I&O: Vital Signs Date Time Temp Pulse Resp B/P (MAP) Pulse Ox O2 Delivery O2 Flow Rate FiO2 02/03/21 15:38 98.5 85 20 115/74 (88) 94 02/02/21 15:48 Room Air I & O 02/02/21 02/02/21 02/03/21 15:00 23:00 07:00 Intake Total 240 ml 0 ml Balance 240 ml 0 ml Current Medications: Meds: Current Medications Medications (Trade) Dose Ordered Sig/Flavio Route PRN Reason Start Time Stop Time Status Last Admin Dose Admin Olanzapine (ZyPREXA ZYDIS) 5 mg PRN Q2HRS PRN PO PSYCHOSIS 01/28/21 13:15 02/02/21 01:21 Acetaminophen (Tylenol) 650 mg PRN Q6HRS PRN PO PAIN 01/28/21 13:30 02/02/21 01:24 Calcium Carbonate/ Glycine (Tums) 500 mg PRN Q2HR PRN PO INDIGESTION 01/28/21 14:30 Vitamin D (Vitamin D3) 50,000 unit QSA PO 01/29/21 16:00 01/29/21 16:37 Docusate Sodium (Colace) 100 mg PRN DAILY PRN PO HARD STOOLS 01/28/21 13:30 Haloperidol (Haldol) 7.5 mg PRN Q6HRS PRN PO ANXIETY / AGITATION 01/28/21 13:30 01/28/21 20:10 DC Ibuprofen (Motrin) 400 mg PRN Q6HRS PRN PO INFLAMMATION 01/28/21 18:00 Lorazepam (Ativan) 2 mg PRN Q6HRS PRN PO 2ND CHOICE ANXIETY/AGITATION 01/28/21 13:30 02/02/21 01:21 Multi-Ingredient Ointment (Analgesic [place]) 1 bria PRN Q1HR PRN TP MUSCLE PAIN 01/28/21 13:30 01/28/21 20:53 Nystatin (Nystop) 1 bria BID TP 01/28/21 21:00 01/30/21 19:00 DC 01/28/21 20:52 Trazodone HCl (Desyrel) 25 mg DAILY PO 01/29/21 09:00 01/31/21 08:32 Trazodone HCl (Desyrel) 50 mg QHS PO 01/28/21 21:00 02/02/21 18:38 DC 02/01/21 21:23 Artificial Tears (Refresh Classic) 1 drop PRN Q6HRS PRN OD DRY EYE 01/28/21 14:30 Cyanocobalamin (Vitamin B-12) 1,000 mcg DAILY PO 01/29/21 09:00 02/03/21 09:53 Diphenhydramine HCl (Benadryl) 50 mg PRN Q6HRS PRN PO 1ST CHOICE ANXIETY/AGITATION 01/28/21 14:30 02/01/21 21:45 Haloperidol Decanoate (Haldol Decanoate Im Extended Release) 100 mg [id number] IM 02/07/21 09:00 Melatonin (Melatonin) 3 mg QHS PO 01/28/21 21:00 02/03/21 20:56 Non-Formulary Medication (Menthol (Biofreeze)) 1 bria PRN Q6HRS PRN TP PAIN 01/28/21 13:30 UNV Polyethylene Glycol (miraLAX) 17 gm PRN DAILY PRN PO CONSTIPATION 01/28/21 14:30 Divalproex Sodium (Depakote Er) 500 mg QHS PO 01/28/21 21:00 01/31/21 12:21 DC 01/30/21 19:35 Lidocaine (Lidoderm) 1 patch DAILY TD 01/29/21 18:00 02/03/21 09:53 Miscellaneous (Lidoderm Patch Removal) 1 ea QHS MC 01/29/21 21:00 01/31/21 20:18 Nystatin (Nystop) 1 bria PRN BID PRN TP REDNESS 01/30/21 19:00 Neomycin/ Polymyxin/ Bacitracin (Triple Antibiotic Ointment) 1 pkt PRN BID PRN TP SKIN PROTECTION 01/30/21 20:30 01/31/21 02:18 Divalproex Sodium (Depakote Er) 1,000 mg QHS PO 01/31/21 21:00 02/03/21 20:46 Clozapine (Clozaril) 25 mg QHS PO 01/31/21 21:00 02/03/21 20:46 Trazodone HCl (Desyrel) 50 mg PRN QHS PRN PO INSOMNIA, MAY REPEAT X1 02/02/21 18:45 02/03/21 20:47 Mirtazapine (Remeron) 7.5 mg QHS PO 02/02/21 21:00 02/03/21 20:58 I have reviewed the current psychotropics carefully including drug interactions. Risk benefit ratio favors no change other than as noted in my dictated progress note. Diagnosis: Problems: (1) Schizoaffective disorder, bipolar type (2) Impulse control disorder, unspecified (3) Anxiety disorder, unspecified (4) Schizophrenia, paranoid, chronic with acute exacerbation (5) Bipolar disorder, current episode mixed, severe, with psychotic features LUPE CASTELLANOS MD Feb 03, 2021 21:06
--- NOTE | 2021-02-03 23:33 | NUR ---
Nursing Note The patient was located in her room for her assessment and medication pass. The patient was non compliant with medications and refused to take any medication. The patient was irritable during interactions with this nurse. The patient is currently sleeping in her room.
[2021-02-04 06:07] LABS: BASO % 1 % (0-3); EOS # 0.3 x10^3/uL (0.0-0.7); EOS % 7 % (0-3); HEMATOCRIT 36.3 % (36.0-47.0); HEMOGLOBIN 11.9 g/dL (12.0-15.5); LYMPH # 1.3 x10^3/uL (1.0-4.8); LYMPH % 31 % (24-48); MEAN CORPUSCULAR HEMOGLOBIN 28 pg (25-35); MEAN CORPUSCULAR HGB CONC 33 g/dL (31-37); MEAN CORPUSCULAR VOLUME 86 fL (79-100); MONO # 0.4 x10^3/uL (0.0-1.1); MONO % 9 % (0-9); NEUT # 2.2 x10^3uL (1.8-7.7); NEUT % 51 % (31-73); PLATELET COUNT 300 x10^3/uL (140-400); RED BLOOD COUNT 4.25 x10^6/uL (3.50-5.40); WHITE BLOOD COUNT 4.2 x10^3/uL (4.0-11.0)
[2021-02-04 06:13] VITALS: BP 110/76
[2021-02-04 06:22] LABS: ALBUMIN 2.9 g/dL (3.4-5.0); ALBUMIN/GLOBULIN RATIO 0.9 (1.0-1.7); ALK PHOS 80 U/L (46-116); ALT (SGPT) 11 U/L (14-59); ANION GAP 9 (6-14); AST (SGOT) < 5 U/L (15-37); BLOOD UREA NITROGEN 16 mg/dL (7-20); BUN/CREATININE RATIO 18 (6-20); CALCIUM 8.3 mg/dL (8.5-10.1); CARBON DIOXIDE 26 mmol/L (21-32); CHLORIDE 107 mmol/L (98-107); CREATININE 0.9 mg/dL (0.6-1.0); GFR 63.2; GLUCOSE 112 mg/dL (70-99); SODIUM 142 mmol/L (136-145); TOTAL BILIRUBIN 0.4 mg/dL (0.2-1.0); TOTAL PROTEIN 6.1 g/dL (6.4-8.2)
[2021-02-04 06:30] LABS: VAL ACID 3 mcg/mL (50-100)
[2021-02-04] MEDS: CYANOCOBALAMIN (VITAMIN B-12) 1,000 MCG TABLET. PO SCH (08:25)
[2021-02-04] MEDS: traZODone 50 MG TABLET. PO SCH (08:26)
[2021-02-04] MEDS: LIDOCAINE (700MG/PATCH) PATCH. TD SCH (08:28)
[2021-02-04] MEDS: cloZAPine 25 MG TABLET PO SCH (08:32)
--- NOTE | 2021-02-04 14:43 | NUR ---
Nursing note: Patient in hallway for morning medication and assessment. She is noncompliant with medication, she received partial dose of Clozaril. She is delusional, demanding, paranoid. She continues to insist that she is 11 years old and belongs in a pediatric hospital. Patient reported 7/10 lower back pain, pain patch applied. Patient isolates herself to her room, only comes to hallway for meals. She is currently laying in bed. Will continue to monitor.
[2021-02-04] MEDS: ACETAMINOPHEN 325 MG TABLET PO PRN (15:26)
[2021-02-04 15:36] VITALS: BP 101/74
--- NOTE | 2021-02-04 20:28 | PDOC ---
Exam Note: Brannon Note: Please also refer to the separate dictated note~for this date of service dictated separately.~Patient seen individually. Discussed the patient with Nursing staff reviewed the chart.~Reviewed interim history and current functioning. Reviewed vital signs,~Labs/ Radiology~and current medications noted below. Continue current treatment with the changes noted in the dictated addendum note Assessment: Vital Signs/I&O: Vital Signs Date Time Temp Pulse Resp B/P (MAP) Pulse Ox O2 Delivery O2 Flow Rate FiO2 02/04/21 15:36 97.9 86 16 101/74 (83) 97 02/02/21 15:48 Room Air I & O 02/03/21 02/03/21 02/04/21 15:00 23:00 07:00 Intake Total 240 ml 380 ml Balance 240 ml 380 ml Labs: Laboratory Tests Test 02/04/21 05:54 White Blood Count 4.2 x10^3/uL (4.0-11.0) Red Blood Count 4.25 x10^6/uL (3.50-5.40) Hemoglobin 11.9 g/dL (12.0-15.5) L Hematocrit 36.3 % (36.0-47.0) Mean Corpuscular Volume 86 fL (79-100) Mean Corpuscular Hemoglobin 28 pg (25-35) Mean Corpuscular Hemoglobin Concent 33 g/dL (31-37) Red Cell Distribution Width 14.0 % (11.5-14.5) Platelet Count 300 x10^3/uL (140-400) Neutrophils (%) (Auto) 51 % (31-73) Lymphocytes (%) (Auto) 31 % (24-48) Monocytes (%) (Auto) 9 % (0-9) Eosinophils (%) (Auto) 7 % (0-3) H Basophils (%) (Auto) 1 % (0-3) Neutrophils # (Auto) 2.2 x10^3uL (1.8-7.7) Lymphocytes # (Auto) 1.3 x10^3/uL (1.0-4.8) Monocytes # (Auto) 0.4 x10^3/uL (0.0-1.1) Eosinophils # (Auto) 0.3 x10^3/uL (0.0-0.7) Basophils # (Auto) 0.0 x10^3/uL (0.0-0.2) Sodium Level 142 mmol/L (136-145) Potassium Level 4.0 mmol/L (3.5-5.1) Chloride Level 107 mmol/L (98-107) Carbon Dioxide Level 26 mmol/L (21-32) Anion Gap 9 (6-14) Blood Urea Nitrogen 16 mg/dL (7-20) Creatinine 0.9 mg/dL (0.6-1.0) Estimated GFR (Cockcroft-Gault) 63.2 BUN/Creatinine Ratio 18 (6-20) Glucose Level 112 mg/dL (70-99) H Calcium Level 8.3 mg/dL (8.5-10.1) L Total Bilirubin 0.4 mg/dL (0.2-1.0) Aspartate Amino Transferase (AST) < 5 U/L (15-37) L Alanine Aminotransferase (ALT) 11 U/L (14-59) L Alkaline Phosphatase 80 U/L (46-116) Total Protein 6.1 g/dL (6.4-8.2) L Albumin 2.9 g/dL (3.4-5.0) L Albumin/Globulin Ratio 0.9 (1.0-1.7) L Valproic Acid Level 3 mcg/mL (50-100) L Valproic Acid Last Dose Date 02/03/21 Valproic Acid Last Dose Time 2100 Current Medications: Meds: Laboratory Tests Test 02/04/21 05:54 White Blood Count 4.2 x10^3/uL Red Blood Count 4.25 x10^6/uL Hemoglobin 11.9 g/dL Hematocrit 36.3 % Mean Corpuscular Volume 86 fL Mean Corpuscular Hemoglobin 28 pg Mean Corpuscular Hemoglobin Concent 33 g/dL Red Cell Distribution Width 14.0 % Platelet Count 300 x10^3/uL Neutrophils (%) (Auto) 51 % Lymphocytes (%) (Auto) 31 % Monocytes (%) (Auto) 9 % Eosinophils (%) (Auto) 7 % Basophils (%) (Auto) 1 % Neutrophils # (Auto) 2.2 x10^3uL Lymphocytes # (Auto) 1.3 x10^3/uL Monocytes # (Auto) 0.4 x10^3/uL Eosinophils # (Auto) 0.3 x10^3/uL Basophils # (Auto) 0.0 x10^3/uL Sodium Level 142 mmol/L Potassium Level 4.0 mmol/L Chloride Level 107 mmol/L Carbon Dioxide Level 26 mmol/L Anion Gap 9 Blood Urea Nitrogen 16 mg/dL Creatinine 0.9 mg/dL Estimated GFR (Cockcroft-Gault) 63.2 BUN/Creatinine Ratio 18 Glucose Level 112 mg/dL Calcium Level 8.3 mg/dL Total Bilirubin 0.4 mg/dL Aspartate Amino Transf (AST/SGOT) < 5 U/L Alanine Aminotransferase (ALT/SGPT) 11 U/L Alkaline Phosphatase 80 U/L Total Protein 6.1 g/dL Albumin 2.9 g/dL Albumin/Globulin Ratio 0.9 Valproic Acid (Depakene) Level 3 mcg/mL Valproic Acid Last Dose Date 02/03/21 Valproic Acid Last Dose Time 2100 Current Medications Medications (Trade) Dose Ordered Sig/Flavio Route PRN Reason Start Time Stop Time Status Last Admin Dose Admin Olanzapine (ZyPREXA ZYDIS) 5 mg PRN Q2HRS PRN PO PSYCHOSIS 01/28/21 13:15 02/02/21 01:21 Acetaminophen (Tylenol) 650 mg PRN Q6HRS PRN PO PAIN 01/28/21 13:30 02/04/21 15:26 Calcium Carbonate/ Glycine (Tums) 500 mg PRN Q2HR PRN PO INDIGESTION 01/28/21 14:30 Vitamin D (Vitamin D3) 50,000 unit QSA PO 01/29/21 16:00 01/29/21 16:37 Docusate Sodium (Colace) 100 mg PRN DAILY PRN PO HARD STOOLS 01/28/21 13:30 Haloperidol (Haldol) 7.5 mg PRN Q6HRS PRN PO ANXIETY / AGITATION 01/28/21 13:30 01/28/21 20:10 DC Ibuprofen (Motrin) 400 mg PRN Q6HRS PRN PO INFLAMMATION 01/28/21 18:00 Lorazepam (Ativan) 2 mg PRN Q6HRS PRN PO 2ND CHOICE ANXIETY/AGITATION 01/28/21 13:30 02/02/21 01:21 Multi-Ingredient Ointment (Analgesic [place]) 1 bria PRN Q1HR PRN TP MUSCLE PAIN 01/28/21 13:30 01/28/21 20:53 Nystatin (Nystop) 1 bria BID TP 01/28/21 21:00 01/30/21 19:00 DC 01/28/21 20:52 Trazodone HCl (Desyrel) 25 mg DAILY PO 01/29/21 09:00 02/04/21 08:26 Trazodone HCl (Desyrel) 50 mg QHS PO 01/28/21 21:00 02/02/21 18:38 DC 02/01/21 21:23 Artificial Tears (Refresh Classic) 1 drop PRN Q6HRS PRN OD DRY EYE 01/28/21 14:30 Cyanocobalamin (Vitamin B-12) 1,000 mcg DAILY PO 01/29/21 09:00 02/04/21 08:25 Diphenhydramine HCl (Benadryl) 50 mg PRN Q6HRS PRN PO 1ST CHOICE ANXIETY/AGITATION 01/28/21 14:30 02/01/21 21:45 Haloperidol Decanoate (Haldol Decanoate Im Extended Release) 100 mg [id number] IM 02/07/21 09:00 Melatonin (Melatonin) 3 mg QHS PO 01/28/21 21:00 02/01/21 21:23 Non-Formulary Medication (Menthol (Biofreeze)) 1 bria PRN Q6HRS PRN TP PAIN 01/28/21 13:30 UNV Polyethylene Glycol (miraLAX) 17 gm PRN DAILY PRN PO CONSTIPATION 01/28/21 14:30 Divalproex Sodium (Depakote Er) 500 mg QHS PO 01/28/21 21:00 01/31/21 12:21 DC 01/30/21 19:35 Lidocaine (Lidoderm) 1 patch DAILY TD 01/29/21 18:00 02/04/21 08:28 Miscellaneous (Lidoderm Patch Removal) 1 ea QHS MC 01/29/21 21:00 02/03/21 21:00 Nystatin (Nystop) 1 bria PRN BID PRN TP REDNESS 01/30/21 19:00 Neomycin/ Polymyxin/ Bacitracin (Triple Antibiotic Ointment) 1 pkt PRN BID PRN TP SKIN PROTECTION 01/30/21 20:30 01/31/21 02:18 Divalproex Sodium (Depakote Er) 1,000 mg QHS PO 01/31/21 21:00 Clozapine (Clozaril) 25 mg QHS PO 01/31/21 21:00 02/03/21 22:06 DC 02/01/21 21:23 Trazodone HCl (Desyrel) 50 mg PRN QHS PRN PO INSOMNIA, MAY REPEAT X1 02/02/21 18:45 Mirtazapine (Remeron) 7.5 mg QHS PO 02/02/21 21:00 Clozapine (Clozaril) 25 mg DAILY PO 02/04/21 09:00 02/04/21 08:32 Current Medications Medications (Trade) Dose Ordered Sig/Flavio Route PRN Reason Start Time Stop Time Status Last Admin Dose Admin Clozapine (Clozaril) 25 mg DAILY PO 02/04/21 09:00 02/04/21 08:32 I have reviewed the current psychotropics carefully including drug interactions. Risk benefit ratio favors no change other than as noted in my dictated progress note. Diagnosis: Problems: (1) Schizoaffective disorder, bipolar type (2) Impulse control disorder, unspecified (3) Anxiety disorder, unspecified (4) Schizophrenia, paranoid, chronic with acute exacerbation (5) Bipolar disorder, current episode mixed, severe, with psychotic features LUPE CASTELLANOS MD Feb 04, 2021 20:28
[2021-02-04] MEDS: PATCH REMOVAL. MC SCH (21:00)
[2021-02-04] MEDS: DIVALPROEX ER 500 MG TAB.ER.24H PO SCH (21:00)
[2021-02-04] MEDS: MELATONIN 3 MG TABLET PO SCH (21:00)
[2021-02-04] MEDS: MIRTAZAPINE 7.5 MG TABLET. PO SCH (21:00)
--- NOTE | 2021-02-04 23:28 | NUR ---
Nursing Note The patient was located in her room for her assessment and medication pass. The patient refused to take any medication. The patient was irritable during interactions with this nurse. The patient is currently sleeping in her room.
[2021-02-05 05:44] VITALS: BP 100/65
--- NOTE | 2021-02-05 08:25 | PDOC ---
Exam Note: Brannon Note: This note is a late entry for 02/02/2021 covers elements not covered in my initial note. Subjective: The patient was seen individually in the evening of 02/02/2021 with Jorge MOFFETT, discussed and reviewed the chart. The patient slept 1-1/4 hours previous night, sleeps poorly at times. She frequently refuses her psychotropics including Depakote. 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 Review of Systems: No CV, , pulmonary, eye, ENT system symptoms on review. Reliability poor. Mental Status Exam: The patient is oriented reasonably. I met with her in her room. She was yelling, agitated, gets easily stimulated, paranoid. Speech coherent, rapid and loud at times. Abstraction fair. Computation impaired. Language function intact. Mood and affect labile, paranoid and psychotic. Laboratory Data: Reviewed. Impression: Schizophrenia, chronic paranoid with acute exacerbation versus schizoaffective disorder, bipolar type, mixed with psychotic features. Anxiety disorder unspecified. Impulse control disorder unspecified. Plan: Start Remeron 7.5 mg h.s. for insomnia. Trazodone has been given for 3 nights with little effect. Maintain rest psychotropics unchanged. Encourage compliance specifically with her Clozaril. Maintain Haldol Decanoate. Rest unchanged. Assessment: Vital Signs/I&O: Vital Signs Date Time Temp Pulse Resp B/P (MAP) Pulse Ox O2 Delivery O2 Flow Rate FiO2 02/05/21 05:44 97.2 63 18 100/65 (77) 93 Room Air I & O 02/04/21 02/04/21 02/05/21 15:00 23:00 07:00 Intake Total 360 ml 240 ml Balance 360 ml 240 ml Current Medications: Meds: Current Medications Medications (Trade) Dose Ordered Sig/Flavio Route PRN Reason Start Time Stop Time Status Last Admin Dose Admin Olanzapine (ZyPREXA ZYDIS) 5 mg PRN Q2HRS PRN PO PSYCHOSIS 01/28/21 13:15 02/02/21 01:21 Acetaminophen (Tylenol) 650 mg PRN Q6HRS PRN PO PAIN 01/28/21 13:30 02/04/21 15:26 Calcium Carbonate/ Glycine (Tums) 500 mg PRN Q2HR PRN PO INDIGESTION 01/28/21 14:30 Vitamin D (Vitamin D3) 50,000 unit QSA PO 01/29/21 16:00 01/29/21 16:37 Docusate Sodium (Colace) 100 mg PRN DAILY PRN PO HARD STOOLS 01/28/21 13:30 Haloperidol (Haldol) 7.5 mg PRN Q6HRS PRN PO ANXIETY / AGITATION 01/28/21 13:30 01/28/21 20:10 DC Ibuprofen (Motrin) 400 mg PRN Q6HRS PRN PO INFLAMMATION 01/28/21 18:00 Lorazepam (Ativan) 2 mg PRN Q6HRS PRN PO 2ND CHOICE ANXIETY/AGITATION 01/28/21 13:30 02/02/21 01:21 Multi-Ingredient Ointment (Analgesic [place]) 1 bria PRN Q1HR PRN TP MUSCLE PAIN 01/28/21 13:30 01/28/21 20:53 Nystatin (Nystop) 1 bria BID TP 01/28/21 21:00 01/30/21 19:00 DC 01/28/21 20:52 Trazodone HCl (Desyrel) 25 mg DAILY PO 01/29/21 09:00 02/04/21 08:26 Trazodone HCl (Desyrel) 50 mg QHS PO 01/28/21 21:00 02/02/21 18:38 DC 02/01/21 21:23 Artificial Tears (Refresh Classic) 1 drop PRN Q6HRS PRN OD DRY EYE 01/28/21 14:30 Cyanocobalamin (Vitamin B-12) 1,000 mcg DAILY PO 01/29/21 09:00 02/04/21 08:25 Diphenhydramine HCl (Benadryl) 50 mg PRN Q6HRS PRN PO 1ST CHOICE ANXIETY/AGITATION 01/28/21 14:30 02/01/21 21:45 Haloperidol Decanoate (Haldol Decanoate Im Extended Release) 100 mg [id number] IM 02/07/21 09:00 Melatonin (Melatonin) 3 mg QHS PO 01/28/21 21:00 02/01/21 21:23 Non-Formulary Medication (Menthol (Biofreeze)) 1 bria PRN Q6HRS PRN TP PAIN 01/28/21 13:30 UNV Polyethylene Glycol (miraLAX) 17 gm PRN DAILY PRN PO CONSTIPATION 01/28/21 14:30 Divalproex Sodium (Depakote Er) 500 mg QHS PO 01/28/21 21:00 01/31/21 12:21 DC 01/30/21 19:35 Lidocaine (Lidoderm) 1 patch DAILY TD 01/29/21 18:00 02/04/21 08:28 Miscellaneous (Lidoderm Patch Removal) 1 ea QHS MC 01/29/21 21:00 02/03/21 21:00 Nystatin (Nystop) 1 bria PRN BID PRN TP REDNESS 01/30/21 19:00 Neomycin/ Polymyxin/ Bacitracin (Triple Antibiotic Ointment) 1 pkt PRN BID PRN TP SKIN PROTECTION 01/30/21 20:30 01/31/21 02:18 Divalproex Sodium (Depakote Er) 1,000 mg QHS PO 01/31/21 21:00 Clozapine (Clozaril) 25 mg QHS PO 01/31/21 21:00 02/03/21 22:06 DC 02/01/21 21:23 Trazodone HCl (Desyrel) 50 mg PRN QHS PRN PO INSOMNIA, MAY REPEAT X1 02/02/21 18:45 Mirtazapine (Remeron) 7.5 mg QHS PO 02/02/21 21:00 Clozapine (Clozaril) 25 mg DAILY PO 02/04/21 09:00 02/04/21 08:32 Current Medications Medications (Trade) Dose Ordered Sig/Flavio Route PRN Reason Start Time Stop Time Status Last Admin Dose Admin Clozapine (Clozaril) 25 mg DAILY PO 02/04/21 09:00 02/04/21 08:32 I have reviewed the current psychotropics carefully including drug interactions. Risk benefit ratio favors no change other than as noted in my dictated progress note. Diagnosis: Problems: (1) Schizoaffective disorder, bipolar type (2) Impulse control disorder, unspecified (3) Anxiety disorder, unspecified (4) Schizophrenia, paranoid, chronic with acute exacerbation (5) Bipolar disorder, current episode mixed, severe, with psychotic features LUPE CASTELLANOS MD Feb 05, 2021 08:25
--- NOTE | 2021-02-05 08:37 | PDOC ---
Exam Note: Brannon Note: This note is a late entry for 02/03/2021 covers elements not covered in my initial note. Subjective: The patient was seen individually in the evening of 02/03/2021 with Chaparro MOFFETT, discussed and reviewed the chart. The patient slept 8-3/4 previous night. She has been withdrawn to her room. She refused her h.s. medications and we will change the Clozaril where it can be given anytime of the day. I met with her in the hallway outside her room. She is quite animated, talking about my sweater and the blue shirt I was wearing, smiling, seemed a little better at least during the individual interaction but rest of the time she is withdrawn, paranoid. Review of Systems: No CV, , pulmonary, eye, ENT system symptoms on review. Reliability poor. Mental Status Exam: The patient is oriented to herself and situation. Speech coherent, rapid at times. Abstraction fair. Computation impaired. Language function intact. Mood and affect somewhat labile despite slight improvement in the above individual interaction. Laboratory Data: Reviewed. Impression: Schizophrenia, chronic paranoid with acute exacerbation versus schizoaffective disorder, bipolar type, mixed with psychotic features. Anxiety disorder unspecified. Impulse control disorder unspecified. Plan: Change the Clozaril as above. Rest unchanged for now. Assessment: Vital Signs/I&O: Vital Signs Date Time Temp Pulse Resp B/P (MAP) Pulse Ox O2 Delivery O2 Flow Rate FiO2 02/05/21 05:44 97.2 63 18 100/65 (77) 93 Room Air I & O 02/04/21 02/04/21 02/05/21 15:00 23:00 07:00 Intake Total 360 ml 240 ml Balance 360 ml 240 ml Current Medications: Meds: Current Medications Medications (Trade) Dose Ordered Sig/Flavio Route PRN Reason Start Time Stop Time Status Last Admin Dose Admin Olanzapine (ZyPREXA ZYDIS) 5 mg PRN Q2HRS PRN PO PSYCHOSIS 01/28/21 13:15 02/02/21 01:21 Acetaminophen (Tylenol) 650 mg PRN Q6HRS PRN PO PAIN 01/28/21 13:30 02/04/21 15:26 Calcium Carbonate/ Glycine (Tums) 500 mg PRN Q2HR PRN PO INDIGESTION 01/28/21 14:30 Vitamin D (Vitamin D3) 50,000 unit QSA PO 01/29/21 16:00 01/29/21 16:37 Docusate Sodium (Colace) 100 mg PRN DAILY PRN PO HARD STOOLS 01/28/21 13:30 Haloperidol (Haldol) 7.5 mg PRN Q6HRS PRN PO ANXIETY / AGITATION 01/28/21 13:30 01/28/21 20:10 DC Ibuprofen (Motrin) 400 mg PRN Q6HRS PRN PO INFLAMMATION 01/28/21 18:00 Lorazepam (Ativan) 2 mg PRN Q6HRS PRN PO 2ND CHOICE ANXIETY/AGITATION 01/28/21 13:30 02/02/21 01:21 Multi-Ingredient Ointment (Analgesic [place]) 1 bria PRN Q1HR PRN TP MUSCLE PAIN 01/28/21 13:30 01/28/21 20:53 Nystatin (Nystop) 1 bria BID TP 01/28/21 21:00 01/30/21 19:00 DC 01/28/21 20:52 Trazodone HCl (Desyrel) 25 mg DAILY PO 01/29/21 09:00 02/04/21 08:26 Trazodone HCl (Desyrel) 50 mg QHS PO 01/28/21 21:00 02/02/21 18:38 DC 02/01/21 21:23 Artificial Tears (Refresh Classic) 1 drop PRN Q6HRS PRN OD DRY EYE 01/28/21 14:30 Cyanocobalamin (Vitamin B-12) 1,000 mcg DAILY PO 01/29/21 09:00 02/04/21 08:25 Diphenhydramine HCl (Benadryl) 50 mg PRN Q6HRS PRN PO 1ST CHOICE ANXIETY/AGITATION 01/28/21 14:30 02/01/21 21:45 Haloperidol Decanoate (Haldol Decanoate Im Extended Release) 100 mg [id number] IM 02/07/21 09:00 Melatonin (Melatonin) 3 mg QHS PO 01/28/21 21:00 02/01/21 21:23 Non-Formulary Medication (Menthol (Biofreeze)) 1 bria PRN Q6HRS PRN TP PAIN 01/28/21 13:30 UNV Polyethylene Glycol (miraLAX) 17 gm PRN DAILY PRN PO CONSTIPATION 01/28/21 14:30 Divalproex Sodium (Depakote Er) 500 mg QHS PO 01/28/21 21:00 01/31/21 12:21 DC 01/30/21 19:35 Lidocaine (Lidoderm) 1 patch DAILY TD 01/29/21 18:00 02/04/21 08:28 Miscellaneous (Lidoderm Patch Removal) 1 ea QHS MC 01/29/21 21:00 02/03/21 21:00 Nystatin (Nystop) 1 bria PRN BID PRN TP REDNESS 01/30/21 19:00 Neomycin/ Polymyxin/ Bacitracin (Triple Antibiotic Ointment) 1 pkt PRN BID PRN TP SKIN PROTECTION 01/30/21 20:30 01/31/21 02:18 Divalproex Sodium (Depakote Er) 1,000 mg QHS PO 01/31/21 21:00 Clozapine (Clozaril) 25 mg QHS PO 01/31/21 21:00 02/03/21 22:06 DC 02/01/21 21:23 Trazodone HCl (Desyrel) 50 mg PRN QHS PRN PO INSOMNIA, MAY REPEAT X1 02/02/21 18:45 Mirtazapine (Remeron) 7.5 mg QHS PO 02/02/21 21:00 Clozapine (Clozaril) 25 mg DAILY PO 02/04/21 09:00 02/04/21 08:32 Current Medications Medications (Trade) Dose Ordered Sig/Flavio Route PRN Reason Start Time Stop Time Status Last Admin Dose Admin Clozapine (Clozaril) 25 mg DAILY PO 02/04/21 09:00 02/04/21 08:32 I have reviewed the current psychotropics carefully including drug interactions. Risk benefit ratio favors no change other than as noted in my dictated progress note. Diagnosis: Problems: (1) Schizoaffective disorder, bipolar type (2) Impulse control disorder, unspecified (3) Anxiety disorder, unspecified (4) Schizophrenia, paranoid, chronic with acute exacerbation (5) Bipolar disorder, current episode mixed, severe, with psychotic features LUPE CASTELLANOS MD Feb 05, 2021 08:37
[2021-02-05] MEDS: LIDOCAINE (700MG/PATCH) PATCH. TD SCH (09:01)
[2021-02-05] MEDS: CYANOCOBALAMIN (VITAMIN B-12) 1,000 MCG TABLET. PO SCH (09:01)
[2021-02-05] MEDS: traZODone 50 MG TABLET. PO SCH (09:01)
[2021-02-05] MEDS: cloZAPine 25 MG TABLET PO SCH (12:15)
[2021-02-05] MEDS: LORazepam 1 MG TABLET PO PRN (14:06)
[2021-02-05] MEDS: CHOLECALCIFEROL (VITAMIN D3) 50,000 UNIT CAPSULE PO SCH (14:06)
--- NOTE | 2021-02-05 14:10 | NUR ---
Patient is tearful, crying loudly, and stating she does not "understand or comprehend". After questioning, patient states she needs her Ativan and that she is scared because she was moved. Explained unit's COVID-19 policy and provided PRN medication. Will continue to monitor and report to MD during rounds.
[2021-02-05 15:36] VITALS: BP 155/79
[2021-02-05] MEDS: MELATONIN 3 MG TABLET PO SCH (20:33)
[2021-02-05] MEDS: MIRTAZAPINE 7.5 MG TABLET. PO SCH (20:33)
[2021-02-05] MEDS: PATCH REMOVAL. MC SCH (20:33)
[2021-02-05] MEDS: DIVALPROEX ER 500 MG TAB.ER.24H PO SCH (20:33)
--- NOTE | 2021-02-05 20:46 | PDOC ---
Exam Note: Brannon Note: Please also refer to the separate dictated note~for this date of service dictated separately.~Patient seen individually. Discussed the patient with Nursing staff reviewed the chart.~Reviewed interim history and current functioning. Reviewed vital signs,~Labs/ Radiology~and current medications noted below. Continue current treatment with the changes noted in the dictated addendum note Assessment: Vital Signs/I&O: Vital Signs Date Time Temp Pulse Resp B/P (MAP) Pulse Ox O2 Delivery O2 Flow Rate FiO2 02/05/21 15:36 97.6 98 20 155/79 (104) 98 02/05/21 05:44 Room Air I & O 02/04/21 02/04/21 02/05/21 15:00 23:00 07:00 Intake Total 360 ml 240 ml Balance 360 ml 240 ml Labs: Laboratory Tests Test 02/05/21 06:30 SARS-CoV-2 (PCR) Not detected (NOT DETECTD) Current Medications: Meds: Laboratory Tests Test 02/05/21 06:30 Coronavirus (COVID-19)(PCR) Not detected Current Medications Medications (Trade) Dose Ordered Sig/Flavio Route PRN Reason Start Time Stop Time Status Last Admin Dose Admin Olanzapine (ZyPREXA ZYDIS) 5 mg PRN Q2HRS PRN PO PSYCHOSIS 01/28/21 13:15 02/02/21 01:21 Acetaminophen (Tylenol) 650 mg PRN Q6HRS PRN PO PAIN 01/28/21 13:30 02/04/21 15:26 Calcium Carbonate/ Glycine (Tums) 500 mg PRN Q2HR PRN PO INDIGESTION 01/28/21 14:30 Vitamin D (Vitamin D3) 50,000 unit QSA PO 01/29/21 16:00 02/05/21 14:06 Docusate Sodium (Colace) 100 mg PRN DAILY PRN PO HARD STOOLS 01/28/21 13:30 Haloperidol (Haldol) 7.5 mg PRN Q6HRS PRN PO ANXIETY / AGITATION 01/28/21 13:30 01/28/21 20:10 DC Ibuprofen (Motrin) 400 mg PRN Q6HRS PRN PO INFLAMMATION 01/28/21 18:00 Lorazepam (Ativan) 2 mg PRN Q6HRS PRN PO 2ND CHOICE ANXIETY/AGITATION 01/28/21 13:30 02/05/21 14:06 Multi-Ingredient Ointment (Analgesic [place]) 1 bria PRN Q1HR PRN TP MUSCLE PAIN 01/28/21 13:30 01/28/21 20:53 Nystatin (Nystop) 1 bria BID TP 01/28/21 21:00 01/30/21 19:00 DC 01/28/21 20:52 Trazodone HCl (Desyrel) 25 mg DAILY PO 01/29/21 09:00 02/05/21 09:01 Trazodone HCl (Desyrel) 50 mg QHS PO 01/28/21 21:00 02/02/21 18:38 DC 02/01/21 21:23 Artificial Tears (Refresh Classic) 1 drop PRN Q6HRS PRN OD DRY EYE 01/28/21 14:30 Cyanocobalamin (Vitamin B-12) 1,000 mcg DAILY PO 01/29/21 09:00 02/05/21 09:01 Diphenhydramine HCl (Benadryl) 50 mg PRN Q6HRS PRN PO 1ST CHOICE ANXIETY/AGITATION 01/28/21 14:30 02/01/21 21:45 Haloperidol Decanoate (Haldol Decanoate Im Extended Release) 100 mg [id number] IM 02/07/21 09:00 Melatonin (Melatonin) 3 mg QHS PO 01/28/21 21:00 02/05/21 20:33 Non-Formulary Medication (Menthol (Biofreeze)) 1 bria PRN Q6HRS PRN TP PAIN 01/28/21 13:30 UNV Polyethylene Glycol (miraLAX) 17 gm PRN DAILY PRN PO CONSTIPATION 01/28/21 14:30 Divalproex Sodium (Depakote Er) 500 mg QHS PO 01/28/21 21:00 01/31/21 12:21 DC 01/30/21 19:35 Lidocaine (Lidoderm) 1 patch DAILY TD 01/29/21 18:00 02/05/21 09:01 Miscellaneous (Lidoderm Patch Removal) 1 ea QHS MC 01/29/21 21:00 02/03/21 21:00 Nystatin (Nystop) 1 bria PRN BID PRN TP REDNESS 01/30/21 19:00 Neomycin/ Polymyxin/ Bacitracin (Triple Antibiotic Ointment) 1 pkt PRN BID PRN TP SKIN PROTECTION 01/30/21 20:30 01/31/21 02:18 Divalproex Sodium (Depakote Er) 1,000 mg QHS PO 01/31/21 21:00 02/05/21 20:33 Clozapine (Clozaril) 25 mg QHS PO 01/31/21 21:00 02/03/21 22:06 DC 02/01/21 21:23 Trazodone HCl (Desyrel) 50 mg PRN QHS PRN PO INSOMNIA, MAY REPEAT X1 02/02/21 18:45 Mirtazapine (Remeron) 7.5 mg QHS PO 02/02/21 21:00 02/05/21 20:33 Clozapine (Clozaril) 25 mg DAILY PO 02/04/21 09:00 02/05/21 12:15 I have reviewed the current psychotropics carefully including drug interactions. Risk benefit ratio favors no change other than as noted in my dictated progress note. Diagnosis: Problems: (1) Schizoaffective disorder, bipolar type (2) Impulse control disorder, unspecified (3) Anxiety disorder, unspecified (4) Schizophrenia, paranoid, chronic with acute exacerbation (5) Bipolar disorder, current episode mixed, severe, with psychotic features LUPE CASTELLANOS MD Feb 05, 2021 20:46
--- NOTE | 2021-02-05 22:32 | NUR ---
Pt located in her room this evening sleeping in bed. This RN woke pt up stating that she needed to take her bedtime medications. Pt started yelling/ crying stating that she isn't going to take the medications. This RN repeatedly told pt that she needed to sit up and take the medications or they would be crushed and given sublingually. Pt highly resistant but eventually complied and sat up and took all HS medications whole. Pt did continue to cry/yell out for a few minutes after taking medications. Pt currently sleeping.
[2021-02-06 05:46] VITALS: BP 109/71
[2021-02-06 07:05] LABS: BASO % 1 % (0-3); EOS # 0.4 x10^3/uL (0.0-0.7); EOS % 7 % (0-3); HEMATOCRIT 36.5 % (36.0-47.0); LYMPH # 1.7 x10^3/uL (1.0-4.8); LYMPH % 35 % (24-48); MEAN CORPUSCULAR HEMOGLOBIN 28 pg (25-35); MEAN CORPUSCULAR HGB CONC 33 g/dL (31-37); MEAN CORPUSCULAR VOLUME 85 fL (79-100); MONO # 0.5 x10^3/uL (0.0-1.1); MONO % 11 % (0-9); NEUT # 2.3 x10^3uL (1.8-7.7); NEUT % 47 % (31-73); PLATELET COUNT 313 x10^3/uL (140-400); RED BLOOD COUNT 4.28 x10^6/uL (3.50-5.40); RED CELL DISTRIBUTION WIDTH 13.9 % (11.5-14.5)
[2021-02-06 07:27] LABS: ALBUMIN/GLOBULIN RATIO 0.9 (1.0-1.7); CALCIUM 8.8 mg/dL (8.5-10.1); CREATININE 0.9 mg/dL (0.6-1.0); GFR 63.2; POTASSIUM 4.6 mmol/L (3.5-5.1); TOTAL BILIRUBIN 0.3 mg/dL (0.2-1.0); TOTAL PROTEIN 6.3 g/dL (6.4-8.2)
--- NOTE | 2021-02-06 07:41 | PDOC ---
Exam Note: Brannon Note: This note is a late entry for 02/04/2021 covers elements not covered in my initial note. Subjective: The patient was seen individually in the evening of 02/04/2021 with Chaparro MOFFETT, discussed and reviewed the chart. The patient slept 6-1/4 previous night. She has had a difficult day. She is quite resistive to her medications but ultimately took the Clozaril in the morning in apple sauce. Valproic acid level is 7. She often refuses her medications. I met with her in her room. Review of Systems: No CV, , pulmonary, eye, ENT system symptoms on review. Reliability poor. Mental Status Exam: The patient is reasonably oriented. Speech coherent, can be rapid and loud at times. Abstraction fair. Computation impaired. Language function intact. Mood and affect labile. Laboratory Data: Reviewed. Impression: Schizophrenia, chronic paranoid with acute exacerbation versus schizoaffective disorder, bipolar type, mixed with psychotic features. Anxiety disorder unspecified. Impulse control disorder unspecified. Plan: We will encourage compliance with her medications. Adjust further as clinically indicated. Assessment: Vital Signs/I&O: Vital Signs Date Time Temp Pulse Resp B/P (MAP) Pulse Ox O2 Delivery O2 Flow Rate FiO2 02/06/21 05:46 97.5 70 18 109/71 (84) 98 02/05/21 05:44 Room Air I & O 02/05/21 02/05/21 02/06/21 15:00 23:00 07:00 Intake Total 240 ml 480 ml Balance 240 ml 480 ml Labs: Laboratory Tests Test 02/06/21 06:44 White Blood Count 5.0 x10^3/uL (4.0-11.0) Red Blood Count 4.28 x10^6/uL (3.50-5.40) Hemoglobin 12.0 g/dL (12.0-15.5) Hematocrit 36.5 % (36.0-47.0) Mean Corpuscular Volume 85 fL (79-100) Mean Corpuscular Hemoglobin 28 pg (25-35) Mean Corpuscular Hemoglobin Concent 33 g/dL (31-37) Red Cell Distribution Width 13.9 % (11.5-14.5) Platelet Count 313 x10^3/uL (140-400) Neutrophils (%) (Auto) 47 % (31-73) Lymphocytes (%) (Auto) 35 % (24-48) Monocytes (%) (Auto) 11 % (0-9) H Eosinophils (%) (Auto) 7 % (0-3) H Basophils (%) (Auto) 1 % (0-3) Neutrophils # (Auto) 2.3 x10^3uL (1.8-7.7) Lymphocytes # (Auto) 1.7 x10^3/uL (1.0-4.8) Monocytes # (Auto) 0.5 x10^3/uL (0.0-1.1) Eosinophils # (Auto) 0.4 x10^3/uL (0.0-0.7) Basophils # (Auto) 0.0 x10^3/uL (0.0-0.2) Sodium Level 147 mmol/L (136-145) H Potassium Level 4.6 mmol/L (3.5-5.1) Chloride Level 108 mmol/L (98-107) H Carbon Dioxide Level 30 mmol/L (21-32) Anion Gap 9 (6-14) Blood Urea Nitrogen 13 mg/dL (7-20) Creatinine 0.9 mg/dL (0.6-1.0) Estimated GFR (Cockcroft-Gault) 63.2 BUN/Creatinine Ratio 14 (6-20) Glucose Level 83 mg/dL (70-99) Calcium Level 8.8 mg/dL (8.5-10.1) Total Bilirubin 0.3 mg/dL (0.2-1.0) Aspartate Amino Transferase (AST) 6 U/L (15-37) L Alanine Aminotransferase (ALT) 14 U/L (14-59) Alkaline Phosphatase 82 U/L (46-116) Total Protein 6.3 g/dL (6.4-8.2) L Albumin 3.0 g/dL (3.4-5.0) L Albumin/Globulin Ratio 0.9 (1.0-1.7) L Current Medications: Meds: Laboratory Tests Test 02/06/21 06:44 White Blood Count 5.0 x10^3/uL Red Blood Count 4.28 x10^6/uL Hemoglobin 12.0 g/dL Hematocrit 36.5 % Mean Corpuscular Volume 85 fL Mean Corpuscular Hemoglobin 28 pg Mean Corpuscular Hemoglobin Concent 33 g/dL Red Cell Distribution Width 13.9 % Platelet Count 313 x10^3/uL Neutrophils (%) (Auto) 47 % Lymphocytes (%) (Auto) 35 % Monocytes (%) (Auto) 11 % Eosinophils (%) (Auto) 7 % Basophils (%) (Auto) 1 % Neutrophils # (Auto) 2.3 x10^3uL Lymphocytes # (Auto) 1.7 x10^3/uL Monocytes # (Auto) 0.5 x10^3/uL Eosinophils # (Auto) 0.4 x10^3/uL Basophils # (Auto) 0.0 x10^3/uL Sodium Level 147 mmol/L Potassium Level 4.6 mmol/L Chloride Level 108 mmol/L Carbon Dioxide Level 30 mmol/L Anion Gap 9 Blood Urea Nitrogen 13 mg/dL Creatinine 0.9 mg/dL Estimated GFR (Cockcroft-Gault) 63.2 BUN/Creatinine Ratio 14 Glucose Level 83 mg/dL Calcium Level 8.8 mg/dL Total Bilirubin 0.3 mg/dL Aspartate Amino Transf (AST/SGOT) 6 U/L Alanine Aminotransferase (ALT/SGPT) 14 U/L Alkaline Phosphatase 82 U/L Total Protein 6.3 g/dL Albumin 3.0 g/dL Albumin/Globulin Ratio 0.9 Current Medications Medications (Trade) Dose Ordered Sig/Flavio Route PRN Reason Start Time Stop Time Status Last Admin Dose Admin Olanzapine (ZyPREXA ZYDIS) 5 mg PRN Q2HRS PRN PO PSYCHOSIS 01/28/21 13:15 02/02/21 01:21 Acetaminophen (Tylenol) 650 mg PRN Q6HRS PRN PO PAIN 01/28/21 13:30 02/04/21 15:26 Calcium Carbonate/ Glycine (Tums) 500 mg PRN Q2HR PRN PO INDIGESTION 01/28/21 14:30 Vitamin D (Vitamin D3) 50,000 unit QSA PO 01/29/21 16:00 02/05/21 14:06 Docusate Sodium (Colace) 100 mg PRN DAILY PRN PO HARD STOOLS 01/28/21 13:30 Haloperidol (Haldol) 7.5 mg PRN Q6HRS PRN PO ANXIETY / AGITATION 01/28/21 13:30 01/28/21 20:10 DC Ibuprofen (Motrin) 400 mg PRN Q6HRS PRN PO INFLAMMATION 01/28/21 18:00 Lorazepam (Ativan) 2 mg PRN Q6HRS PRN PO 2ND CHOICE ANXIETY/AGITATION 01/28/21 13:30 02/05/21 14:06 Multi-Ingredient Ointment (Analgesic [place]) 1 bria PRN Q1HR PRN TP MUSCLE PAIN 01/28/21 13:30 01/28/21 20:53 Nystatin (Nystop) 1 bria BID TP 01/28/21 21:00 01/30/21 19:00 DC 01/28/21 20:52 Trazodone HCl (Desyrel) 25 mg DAILY PO 01/29/21 09:00 02/05/21 09:01 Trazodone HCl (Desyrel) 50 mg QHS PO 01/28/21 21:00 02/02/21 18:38 DC 02/01/21 21:23 Artificial Tears (Refresh Classic) 1 drop PRN Q6HRS PRN OD DRY EYE 01/28/21 14:30 Cyanocobalamin (Vitamin B-12) 1,000 mcg DAILY PO 01/29/21 09:00 02/05/21 09:01 Diphenhydramine HCl (Benadryl) 50 mg PRN Q6HRS PRN PO 1ST CHOICE ANXIETY/AGITATION 01/28/21 14:30 02/01/21 21:45 Haloperidol Decanoate (Haldol Decanoate Im Extended Release) 100 mg [id number] IM 02/07/21 09:00 Melatonin (Melatonin) 3 mg QHS PO 01/28/21 21:00 02/05/21 20:33 Non-Formulary Medication (Menthol (Biofreeze)) 1 bria PRN Q6HRS PRN TP PAIN 01/28/21 13:30 UNV Polyethylene Glycol (miraLAX) 17 gm PRN DAILY PRN PO CONSTIPATION 01/28/21 14:30 Divalproex Sodium (Depakote Er) 500 mg QHS PO 01/28/21 21:00 01/31/21 12:21 DC 01/30/21 19:35 Lidocaine (Lidoderm) 1 patch DAILY TD 01/29/21 18:00 02/05/21 09:01 Miscellaneous (Lidoderm Patch Removal) 1 ea QHS MC 01/29/21 21:00 02/03/21 21:00 Nystatin (Nystop) 1 bria PRN BID PRN TP REDNESS 01/30/21 19:00 Neomycin/ Polymyxin/ Bacitracin (Triple Antibiotic Ointment) 1 pkt PRN BID PRN TP SKIN PROTECTION 01/30/21 20:30 01/31/21 02:18 Divalproex Sodium (Depakote Er) 1,000 mg QHS PO 01/31/21 21:00 02/05/21 20:33 Clozapine (Clozaril) 25 mg QHS PO 01/31/21 21:00 02/03/21 22:06 DC 02/01/21 21:23 Trazodone HCl (Desyrel) 50 mg PRN QHS PRN PO INSOMNIA, MAY REPEAT X1 02/02/21 18:45 Mirtazapine (Remeron) 7.5 mg QHS PO 02/02/21 21:00 02/05/21 20:33 Clozapine (Clozaril) 25 mg DAILY PO 02/04/21 09:00 02/05/21 12:15 I have reviewed the current psychotropics carefully including drug interactions. Risk benefit ratio favors no change other than as noted in my dictated progress note. Diagnosis: Problems: (1) Schizoaffective disorder, bipolar type (2) Impulse control disorder, unspecified (3) Anxiety disorder, unspecified (4) Schizophrenia, paranoid, chronic with acute exacerbation (5) Bipolar disorder, current episode mixed, severe, with psychotic features LUPE CASTELLANOS MD Feb 06, 2021 07:41
--- NOTE | 2021-02-06 08:06 | PDOC ---
Exam Note: Brannon Note: This note is a late entry for 02/05/2021 covers elements not covered in my initial note. Subjective: The patient was seen individually in the evening of 02/05/2021 with Jorge MOFFETT, discussed and reviewed the chart. The patient slept 9 previous night. She took her Clozaril at lunchtime, refused in the morning, took it in ice-cream. Later in the afternoon she was crying, screaming. Received Ativan and did better. Review of Systems: No CV, , pulmonary, eye, ENT system symptoms on review. Reliability poor. Mental Status Exam: The patient is oriented to herself and situation. I met with her in her room. Speech coherent can be loud at times. Abstraction fair. Computation impaired. Language function intact. Mood and affect labile. She is paranoid but less so. Laboratory Data: Reviewed. Impression: Schizophrenia, chronic paranoid with acute exacerbation versus schizoaffective disorder, bipolar type, mixed with psychotic features. Anxiety disorder unspecified. Impulse control disorder unspecified. Plan: Continue psychotropics unchanged for now. Assessment: Vital Signs/I&O: Vital Signs Date Time Temp Pulse Resp B/P (MAP) Pulse Ox O2 Delivery O2 Flow Rate FiO2 02/06/21 05:46 97.5 70 18 109/71 (84) 98 02/05/21 05:44 Room Air I & O 02/05/21 02/05/21 02/06/21 15:00 23:00 07:00 Intake Total 240 ml 480 ml Balance 240 ml 480 ml Labs: Laboratory Tests Test 02/06/21 06:44 White Blood Count 5.0 x10^3/uL (4.0-11.0) Red Blood Count 4.28 x10^6/uL (3.50-5.40) Hemoglobin 12.0 g/dL (12.0-15.5) Hematocrit 36.5 % (36.0-47.0) Mean Corpuscular Volume 85 fL (79-100) Mean Corpuscular Hemoglobin 28 pg (25-35) Mean Corpuscular Hemoglobin Concent 33 g/dL (31-37) Red Cell Distribution Width 13.9 % (11.5-14.5) Platelet Count 313 x10^3/uL (140-400) Neutrophils (%) (Auto) 47 % (31-73) Lymphocytes (%) (Auto) 35 % (24-48) Monocytes (%) (Auto) 11 % (0-9) H Eosinophils (%) (Auto) 7 % (0-3) H Basophils (%) (Auto) 1 % (0-3) Neutrophils # (Auto) 2.3 x10^3uL (1.8-7.7) Lymphocytes # (Auto) 1.7 x10^3/uL (1.0-4.8) Monocytes # (Auto) 0.5 x10^3/uL (0.0-1.1) Eosinophils # (Auto) 0.4 x10^3/uL (0.0-0.7) Basophils # (Auto) 0.0 x10^3/uL (0.0-0.2) Sodium Level 147 mmol/L (136-145) H Potassium Level 4.6 mmol/L (3.5-5.1) Chloride Level 108 mmol/L (98-107) H Carbon Dioxide Level 30 mmol/L (21-32) Anion Gap 9 (6-14) Blood Urea Nitrogen 13 mg/dL (7-20) Creatinine 0.9 mg/dL (0.6-1.0) Estimated GFR (Cockcroft-Gault) 63.2 BUN/Creatinine Ratio 14 (6-20) Glucose Level 83 mg/dL (70-99) Calcium Level 8.8 mg/dL (8.5-10.1) Total Bilirubin 0.3 mg/dL (0.2-1.0) Aspartate Amino Transferase (AST) 6 U/L (15-37) L Alanine Aminotransferase (ALT) 14 U/L (14-59) Alkaline Phosphatase 82 U/L (46-116) Total Protein 6.3 g/dL (6.4-8.2) L Albumin 3.0 g/dL (3.4-5.0) L Albumin/Globulin Ratio 0.9 (1.0-1.7) L Current Medications: Meds: Laboratory Tests Test 02/06/21 06:44 White Blood Count 5.0 x10^3/uL Red Blood Count 4.28 x10^6/uL Hemoglobin 12.0 g/dL Hematocrit 36.5 % Mean Corpuscular Volume 85 fL Mean Corpuscular Hemoglobin 28 pg Mean Corpuscular Hemoglobin Concent 33 g/dL Red Cell Distribution Width 13.9 % Platelet Count 313 x10^3/uL Neutrophils (%) (Auto) 47 % Lymphocytes (%) (Auto) 35 % Monocytes (%) (Auto) 11 % Eosinophils (%) (Auto) 7 % Basophils (%) (Auto) 1 % Neutrophils # (Auto) 2.3 x10^3uL Lymphocytes # (Auto) 1.7 x10^3/uL Monocytes # (Auto) 0.5 x10^3/uL Eosinophils # (Auto) 0.4 x10^3/uL Basophils # (Auto) 0.0 x10^3/uL Sodium Level 147 mmol/L Potassium Level 4.6 mmol/L Chloride Level 108 mmol/L Carbon Dioxide Level 30 mmol/L Anion Gap 9 Blood Urea Nitrogen 13 mg/dL Creatinine 0.9 mg/dL Estimated GFR (Cockcroft-Gault) 63.2 BUN/Creatinine Ratio 14 Glucose Level 83 mg/dL Calcium Level 8.8 mg/dL Total Bilirubin 0.3 mg/dL Aspartate Amino Transf (AST/SGOT) 6 U/L Alanine Aminotransferase (ALT/SGPT) 14 U/L Alkaline Phosphatase 82 U/L Total Protein 6.3 g/dL Albumin 3.0 g/dL Albumin/Globulin Ratio 0.9 Current Medications Medications (Trade) Dose Ordered Sig/Flavio Route PRN Reason Start Time Stop Time Status Last Admin Dose Admin Olanzapine (ZyPREXA ZYDIS) 5 mg PRN Q2HRS PRN PO PSYCHOSIS 01/28/21 13:15 02/02/21 01:21 Acetaminophen (Tylenol) 650 mg PRN Q6HRS PRN PO PAIN 01/28/21 13:30 02/04/21 15:26 Calcium Carbonate/ Glycine (Tums) 500 mg PRN Q2HR PRN PO INDIGESTION 01/28/21 14:30 Vitamin D (Vitamin D3) 50,000 unit QSA PO 01/29/21 16:00 02/05/21 14:06 Docusate Sodium (Colace) 100 mg PRN DAILY PRN PO HARD STOOLS 01/28/21 13:30 Haloperidol (Haldol) 7.5 mg PRN Q6HRS PRN PO ANXIETY / AGITATION 01/28/21 13:30 01/28/21 20:10 DC Ibuprofen (Motrin) 400 mg PRN Q6HRS PRN PO INFLAMMATION 01/28/21 18:00 Lorazepam (Ativan) 2 mg PRN Q6HRS PRN PO 2ND CHOICE ANXIETY/AGITATION 01/28/21 13:30 02/05/21 14:06 Multi-Ingredient Ointment (Analgesic [place]) 1 bria PRN Q1HR PRN TP MUSCLE PAIN 01/28/21 13:30 01/28/21 20:53 Nystatin (Nystop) 1 bria BID TP 01/28/21 21:00 01/30/21 19:00 DC 01/28/21 20:52 Trazodone HCl (Desyrel) 25 mg DAILY PO 01/29/21 09:00 02/05/21 09:01 Trazodone HCl (Desyrel) 50 mg QHS PO 01/28/21 21:00 02/02/21 18:38 DC 02/01/21 21:23 Artificial Tears (Refresh Classic) 1 drop PRN Q6HRS PRN OD DRY EYE 01/28/21 14:30 Cyanocobalamin (Vitamin B-12) 1,000 mcg DAILY PO 01/29/21 09:00 02/05/21 09:01 Diphenhydramine HCl (Benadryl) 50 mg PRN Q6HRS PRN PO 1ST CHOICE ANXIETY/AGITATION 01/28/21 14:30 02/01/21 21:45 Haloperidol Decanoate (Haldol Decanoate Im Extended Release) 100 mg [id number] IM 02/07/21 09:00 Melatonin (Melatonin) 3 mg QHS PO 01/28/21 21:00 02/05/21 20:33 Non-Formulary Medication (Menthol (Biofreeze)) 1 bria PRN Q6HRS PRN TP PAIN 01/28/21 13:30 UNV Polyethylene Glycol (miraLAX) 17 gm PRN DAILY PRN PO CONSTIPATION 01/28/21 14:30 Divalproex Sodium (Depakote Er) 500 mg QHS PO 01/28/21 21:00 01/31/21 12:21 DC 01/30/21 19:35 Lidocaine (Lidoderm) 1 patch DAILY TD 01/29/21 18:00 02/05/21 09:01 Miscellaneous (Lidoderm Patch Removal) 1 ea QHS MC 01/29/21 21:00 02/03/21 21:00 Nystatin (Nystop) 1 bria PRN BID PRN TP REDNESS 01/30/21 19:00 Neomycin/ Polymyxin/ Bacitracin (Triple Antibiotic Ointment) 1 pkt PRN BID PRN TP SKIN PROTECTION 01/30/21 20:30 01/31/21 02:18 Divalproex Sodium (Depakote Er) 1,000 mg QHS PO 01/31/21 21:00 02/05/21 20:33 Clozapine (Clozaril) 25 mg QHS PO 01/31/21 21:00 02/03/21 22:06 DC 02/01/21 21:23 Trazodone HCl (Desyrel) 50 mg PRN QHS PRN PO INSOMNIA, MAY REPEAT X1 02/02/21 18:45 Mirtazapine (Remeron) 7.5 mg QHS PO 02/02/21 21:00 02/05/21 20:33 Clozapine (Clozaril) 25 mg DAILY PO 02/04/21 09:00 02/05/21 12:15 I have reviewed the current psychotropics carefully including drug interactions. Risk benefit ratio favors no change other than as noted in my dictated progress note. Diagnosis: Problems: (1) Schizoaffective disorder, bipolar type (2) Impulse control disorder, unspecified (3) Anxiety disorder, unspecified (4) Schizophrenia, paranoid, chronic with acute exacerbation (5) Bipolar disorder, current episode mixed, severe, with psychotic features LUPE CASTELLANOS MD Feb 06, 2021 08:06
[2021-02-06] MEDS: CYANOCOBALAMIN (VITAMIN B-12) 1,000 MCG TABLET. PO SCH (12:36)
[2021-02-06] MEDS: traZODone 50 MG TABLET. PO SCH (12:36)
[2021-02-06] MEDS: LIDOCAINE (700MG/PATCH) PATCH. TD SCH (12:37)
[2021-02-06 15:35] VITALS: BP 100/62
--- NOTE | 2021-02-06 18:21 | NUR ---
Patient has been calm, cooperative, and withdrawn throughout this shift. She did refuse clozaril in the morning. She was withdrawn to her room between meals, in the morning she did not get up for breakfast and pretended to be asleep when staff went into her room. Will continue to monitor and report to oncoming shift.
--- NOTE | 2021-02-06 20:24 | PDOC ---
Exam Note: Brannon Note: Please also refer to the separate dictated note~for this date of service dictated separately.~Patient seen individually. Discussed the patient with Nursing staff reviewed the chart.~Reviewed interim history and current functioning. Reviewed vital signs,~Labs/ Radiology~and current medications noted below. Continue current treatment with the changes noted in the dictated addendum note Assessment: Vital Signs/I&O: Vital Signs Date Time Temp Pulse Resp B/P (MAP) Pulse Ox O2 Delivery O2 Flow Rate FiO2 02/06/21 15:35 98.4 67 16 100/62 (75) 97 02/05/21 05:44 Room Air I & O 02/05/21 02/05/21 02/06/21 15:00 23:00 07:00 Intake Total 240 ml 480 ml Balance 240 ml 480 ml Labs: Laboratory Tests Test 02/06/21 06:44 White Blood Count 5.0 x10^3/uL (4.0-11.0) Red Blood Count 4.28 x10^6/uL (3.50-5.40) Hemoglobin 12.0 g/dL (12.0-15.5) Hematocrit 36.5 % (36.0-47.0) Mean Corpuscular Volume 85 fL (79-100) Mean Corpuscular Hemoglobin 28 pg (25-35) Mean Corpuscular Hemoglobin Concent 33 g/dL (31-37) Red Cell Distribution Width 13.9 % (11.5-14.5) Platelet Count 313 x10^3/uL (140-400) Neutrophils (%) (Auto) 47 % (31-73) Lymphocytes (%) (Auto) 35 % (24-48) Monocytes (%) (Auto) 11 % (0-9) H Eosinophils (%) (Auto) 7 % (0-3) H Basophils (%) (Auto) 1 % (0-3) Neutrophils # (Auto) 2.3 x10^3uL (1.8-7.7) Lymphocytes # (Auto) 1.7 x10^3/uL (1.0-4.8) Monocytes # (Auto) 0.5 x10^3/uL (0.0-1.1) Eosinophils # (Auto) 0.4 x10^3/uL (0.0-0.7) Basophils # (Auto) 0.0 x10^3/uL (0.0-0.2) Sodium Level 147 mmol/L (136-145) H Potassium Level 4.6 mmol/L (3.5-5.1) Chloride Level 108 mmol/L (98-107) H Carbon Dioxide Level 30 mmol/L (21-32) Anion Gap 9 (6-14) Blood Urea Nitrogen 13 mg/dL (7-20) Creatinine 0.9 mg/dL (0.6-1.0) Estimated GFR (Cockcroft-Gault) 63.2 BUN/Creatinine Ratio 14 (6-20) Glucose Level 83 mg/dL (70-99) Calcium Level 8.8 mg/dL (8.5-10.1) Total Bilirubin 0.3 mg/dL (0.2-1.0) Aspartate Amino Transferase (AST) 6 U/L (15-37) L Alanine Aminotransferase (ALT) 14 U/L (14-59) Alkaline Phosphatase 82 U/L (46-116) Total Protein 6.3 g/dL (6.4-8.2) L Albumin 3.0 g/dL (3.4-5.0) L Albumin/Globulin Ratio 0.9 (1.0-1.7) L Current Medications: Meds: Laboratory Tests Test 02/06/21 06:44 White Blood Count 5.0 x10^3/uL Red Blood Count 4.28 x10^6/uL Hemoglobin 12.0 g/dL Hematocrit 36.5 % Mean Corpuscular Volume 85 fL Mean Corpuscular Hemoglobin 28 pg Mean Corpuscular Hemoglobin Concent 33 g/dL Red Cell Distribution Width 13.9 % Platelet Count 313 x10^3/uL Neutrophils (%) (Auto) 47 % Lymphocytes (%) (Auto) 35 % Monocytes (%) (Auto) 11 % Eosinophils (%) (Auto) 7 % Basophils (%) (Auto) 1 % Neutrophils # (Auto) 2.3 x10^3uL Lymphocytes # (Auto) 1.7 x10^3/uL Monocytes # (Auto) 0.5 x10^3/uL Eosinophils # (Auto) 0.4 x10^3/uL Basophils # (Auto) 0.0 x10^3/uL Sodium Level 147 mmol/L Potassium Level 4.6 mmol/L Chloride Level 108 mmol/L Carbon Dioxide Level 30 mmol/L Anion Gap 9 Blood Urea Nitrogen 13 mg/dL Creatinine 0.9 mg/dL Estimated GFR (Cockcroft-Gault) 63.2 BUN/Creatinine Ratio 14 Glucose Level 83 mg/dL Calcium Level 8.8 mg/dL Total Bilirubin 0.3 mg/dL Aspartate Amino Transf (AST/SGOT) 6 U/L Alanine Aminotransferase (ALT/SGPT) 14 U/L Alkaline Phosphatase 82 U/L Total Protein 6.3 g/dL Albumin 3.0 g/dL Albumin/Globulin Ratio 0.9 Current Medications Medications (Trade) Dose Ordered Sig/Flavio Route PRN Reason Start Time Stop Time Status Last Admin Dose Admin Olanzapine (ZyPREXA ZYDIS) 5 mg PRN Q2HRS PRN PO PSYCHOSIS 01/28/21 13:15 02/02/21 01:21 Acetaminophen (Tylenol) 650 mg PRN Q6HRS PRN PO PAIN 01/28/21 13:30 02/04/21 15:26 Calcium Carbonate/ Glycine (Tums) 500 mg PRN Q2HR PRN PO INDIGESTION 01/28/21 14:30 Vitamin D (Vitamin D3) 50,000 unit QSA PO 01/29/21 16:00 02/05/21 14:06 Docusate Sodium (Colace) 100 mg PRN DAILY PRN PO HARD STOOLS 01/28/21 13:30 Haloperidol (Haldol) 7.5 mg PRN Q6HRS PRN PO ANXIETY / AGITATION 01/28/21 13:30 01/28/21 20:10 DC Ibuprofen (Motrin) 400 mg PRN Q6HRS PRN PO INFLAMMATION 01/28/21 18:00 Lorazepam (Ativan) 2 mg PRN Q6HRS PRN PO 2ND CHOICE ANXIETY/AGITATION 01/28/21 13:30 02/05/21 14:06 Multi-Ingredient Ointment (Analgesic [place]) 1 bria PRN Q1HR PRN TP MUSCLE PAIN 01/28/21 13:30 01/28/21 20:53 Nystatin (Nystop) 1 bria BID TP 01/28/21 21:00 01/30/21 19:00 DC 01/28/21 20:52 Trazodone HCl (Desyrel) 25 mg DAILY PO 01/29/21 09:00 02/06/21 12:36 Trazodone HCl (Desyrel) 50 mg QHS PO 01/28/21 21:00 02/02/21 18:38 DC 02/01/21 21:23 Artificial Tears (Refresh Classic) 1 drop PRN Q6HRS PRN OD DRY EYE 01/28/21 14:30 Cyanocobalamin (Vitamin B-12) 1,000 mcg DAILY PO 01/29/21 09:00 02/06/21 12:36 Diphenhydramine HCl (Benadryl) 50 mg PRN Q6HRS PRN PO 1ST CHOICE ANXIETY/AGITATION 01/28/21 14:30 02/01/21 21:45 Haloperidol Decanoate (Haldol Decanoate Im Extended Release) 100 mg [id number] IM 02/07/21 09:00 Melatonin (Melatonin) 3 mg QHS PO 01/28/21 21:00 02/05/21 20:33 Non-Formulary Medication (Menthol (Biofreeze)) 1 bria PRN Q6HRS PRN TP PAIN 01/28/21 13:30 UNV Polyethylene Glycol (miraLAX) 17 gm PRN DAILY PRN PO CONSTIPATION 01/28/21 14:30 Divalproex Sodium (Depakote Er) 500 mg QHS PO 01/28/21 21:00 01/31/21 12:21 DC 01/30/21 19:35 Lidocaine (Lidoderm) 1 patch DAILY TD 01/29/21 18:00 02/06/21 12:37 Miscellaneous (Lidoderm Patch Removal) 1 ea QHS MC 01/29/21 21:00 02/03/21 21:00 Nystatin (Nystop) 1 bria PRN BID PRN TP REDNESS 01/30/21 19:00 Neomycin/ Polymyxin/ Bacitracin (Triple Antibiotic Ointment) 1 pkt PRN BID PRN TP SKIN PROTECTION 01/30/21 20:30 01/31/21 02:18 Divalproex Sodium (Depakote Er) 1,000 mg QHS PO 01/31/21 21:00 02/05/21 20:33 Clozapine (Clozaril) 25 mg QHS PO 01/31/21 21:00 02/03/21 22:06 DC 02/01/21 21:23 Trazodone HCl (Desyrel) 50 mg PRN QHS PRN PO INSOMNIA, MAY REPEAT X1 02/02/21 18:45 Mirtazapine (Remeron) 7.5 mg QHS PO 02/02/21 21:00 02/05/21 20:33 Clozapine (Clozaril) 25 mg DAILY PO 02/04/21 09:00 02/05/21 12:15 I have reviewed the current psychotropics carefully including drug interactions. Risk benefit ratio favors no change other than as noted in my dictated progress note. Diagnosis: Problems: (1) Schizoaffective disorder, bipolar type (2) Impulse control disorder, unspecified (3) Anxiety disorder, unspecified (4) Schizophrenia, paranoid, chronic with acute exacerbation (5) Bipolar disorder, current episode mixed, severe, with psychotic features LUPE CASTELLANOS MD Feb 06, 2021 20:24
[2021-02-06] MEDS: MELATONIN 3 MG TABLET PO SCH (20:34)
[2021-02-06] MEDS: MIRTAZAPINE 7.5 MG TABLET. PO SCH (20:34)
[2021-02-06] MEDS: cloZAPine 25 MG TABLET PO SCH (20:34)
[2021-02-06] MEDS: DIVALPROEX ER 500 MG TAB.ER.24H PO SCH ×2 (20:34→20:42)
[2021-02-06] MEDS: PATCH REMOVAL. MC SCH (20:35)
--- NOTE | 2021-02-06 22:23 | NUR ---
Patient was asleep when nurse entered room with HS medications. She took remeron, melatonin and Clozaril (she had refused this all day, nurse told her it was Lorazepam to get her to take it). She continues to refuse Depakote stating that it "causes her to not sleep". Patient had blood drawn for CBC this morning for monitoring ANC for clozaril. Patient delusional and stated that she is 11 years old.
[2021-02-07 06:09] VITALS: BP 104/70
--- NOTE | 2021-02-07 06:59 | PDOC ---
Exam Note: Brannon Note: This note is a late entry for 02/06/2021 covers elements not covered in my initial note. Subjective: The patient was seen individually in the evening of 02/06/2021 with Jorge MOFFETT, discussed and reviewed the chart. The patient slept 9-3/4 previous night. She is resistive with her medications. Last night refused Clozaril today and nursing staff will persevere to try and have her take it. She has been refusing the Depakote. I met with her in her room. Review of Systems: No CV, , pulmonary, eye, ENT system symptoms on review. Reliability poor. Mental Status Exam: The patient is oriented to herself and situation. She was not very verbal and interactive, somewhat suspicious. Abstraction fair. Computation impaired. Language function intact. Mood and affect labile. No suicidal or homicidal ideation. She is distractible. Laboratory Data: Reviewed. Impression: Schizophrenia, chronic paranoid with acute exacerbation versus [facility] izoaffective disorder, bipolar type, mixed with psychotic features. Anxiety disorder unspecified. Impulse control disorder unspecified. Plan: We will continue to persevere and encouraging compliance at least with the Clozaril. Maintain rest psychotropics unchanged. Assessment: Vital Signs/I&O: Vital Signs Date Time Temp Pulse Resp B/P (MAP) Pulse Ox O2 Delivery O2 Flow Rate FiO2 02/07/21 06:09 97.4 71 18 104/70 (81) 95 02/05/21 05:44 Room Air I & O 02/06/21 02/06/21 02/07/21 15:00 23:00 07:00 Intake Total 480 ml 360 ml Balance 480 ml 360 ml Current Medications: Meds: Current Medications Medications (Trade) Dose Ordered Sig/Flavio Route PRN Reason Start Time Stop Time Status Last Admin Dose Admin Olanzapine (ZyPREXA ZYDIS) 5 mg PRN Q2HRS PRN PO PSYCHOSIS 01/28/21 13:15 02/02/21 01:21 Acetaminophen (Tylenol) 650 mg PRN Q6HRS PRN PO PAIN 01/28/21 13:30 02/04/21 15:26 Calcium Carbonate/ Glycine (Tums) 500 mg PRN Q2HR PRN PO INDIGESTION 01/28/21 14:30 Vitamin D (Vitamin D3) 50,000 unit QSA PO 01/29/21 16:00 02/05/21 14:06 Docusate Sodium (Colace) 100 mg PRN DAILY PRN PO HARD STOOLS 01/28/21 13:30 Haloperidol (Haldol) 7.5 mg PRN Q6HRS PRN PO ANXIETY / AGITATION 01/28/21 13:30 01/28/21 20:10 DC Ibuprofen (Motrin) 400 mg PRN Q6HRS PRN PO INFLAMMATION 01/28/21 18:00 Lorazepam (Ativan) 2 mg PRN Q6HRS PRN PO 2ND CHOICE ANXIETY/AGITATION 01/28/21 13:30 02/05/21 14:06 Multi-Ingredient Ointment (Analgesic [place]) 1 bria PRN Q1HR PRN TP MUSCLE PAIN 01/28/21 13:30 01/28/21 20:53 Nystatin (Nystop) 1 bria BID TP 01/28/21 21:00 01/30/21 19:00 DC 01/28/21 20:52 Trazodone HCl (Desyrel) 25 mg DAILY PO 01/29/21 09:00 02/06/21 12:36 Trazodone HCl (Desyrel) 50 mg QHS PO 01/28/21 21:00 02/02/21 18:38 DC 02/01/21 21:23 Artificial Tears (Refresh Classic) 1 drop PRN Q6HRS PRN OD DRY EYE 01/28/21 14:30 Cyanocobalamin (Vitamin B-12) 1,000 mcg DAILY PO 01/29/21 09:00 02/06/21 12:36 Diphenhydramine HCl (Benadryl) 50 mg PRN Q6HRS PRN PO 1ST CHOICE ANXIETY/AGITATION 01/28/21 14:30 02/01/21 21:45 Haloperidol Decanoate (Haldol Decanoate Im Extended Release) 100 mg [id number] IM 02/07/21 09:00 Melatonin (Melatonin) 3 mg QHS PO 01/28/21 21:00 02/06/21 20:34 Non-Formulary Medication (Menthol (Biofreeze)) 1 bria PRN Q6HRS PRN TP PAIN 01/28/21 13:30 UNV Polyethylene Glycol (miraLAX) 17 gm PRN DAILY PRN PO CONSTIPATION 01/28/21 14:30 Divalproex Sodium (Depakote Er) 500 mg QHS PO 01/28/21 21:00 01/31/21 12:21 DC 01/30/21 19:35 Lidocaine (Lidoderm) 1 patch DAILY TD 01/29/21 18:00 02/06/21 12:37 Miscellaneous (Lidoderm Patch Removal) 1 ea QHS MC 01/29/21 21:00 02/06/21 20:35 Nystatin (Nystop) 1 bria PRN BID PRN TP REDNESS 01/30/21 19:00 Neomycin/ Polymyxin/ Bacitracin (Triple Antibiotic Ointment) 1 pkt PRN BID PRN TP SKIN PROTECTION 01/30/21 20:30 01/31/21 02:18 Divalproex Sodium (Depakote Er) 1,000 mg QHS PO 01/31/21 21:00 02/05/21 20:33 Clozapine (Clozaril) 25 mg QHS PO 01/31/21 21:00 02/03/21 22:06 DC 02/01/21 21:23 Trazodone HCl (Desyrel) 50 mg PRN QHS PRN PO INSOMNIA, MAY REPEAT X1 02/02/21 18:45 Mirtazapine (Remeron) 7.5 mg QHS PO 02/02/21 21:00 02/06/21 20:34 Clozapine (Clozaril) 25 mg DAILY PO 02/04/21 09:00 02/06/21 20:34 I have reviewed the current psychotropics carefully including drug interactions. Risk benefit ratio favors no change other than as noted in my dictated progress note. Diagnosis: Problems: (1) Schizoaffective disorder, bipolar type (2) Impulse control disorder, unspecified (3) Anxiety disorder, unspecified (4) Schizophrenia, paranoid, chronic with acute exacerbation (5) Bipolar disorder, current episode mixed, severe, with psychotic features LUPE CASTELLANOS MD Feb 07, 2021 06:59
[2021-02-07] MEDS: CYANOCOBALAMIN (VITAMIN B-12) 1,000 MCG TABLET. PO SCH (08:22)
[2021-02-07] MEDS: traZODone 50 MG TABLET. PO SCH (08:22)
[2021-02-07] MEDS: LIDOCAINE (700MG/PATCH) PATCH. TD SCH (08:23)
[2021-02-07] MEDS ORDERED: HALOPERIDOL DECANOATE IM ER 100 MG/ML VIAL. IM SCH (09:00)
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
[2021-02-07 15:30] VITALS: BP 136/80
[2021-02-07] MEDS: cloZAPine 25 MG TABLET PO SCH (17:20)
--- NOTE | 2021-02-07 20:21 | NUR ---
Patient was scheduled for shower tonight. She yelled and resisted all the way down the hallway to the shower room and then continued to yell throughout the shower and even afterwards when she was back in her room.
[2021-02-07] MEDS: PATCH REMOVAL. MC SCH (21:00)
--- NOTE | 2021-02-07 21:12 | PDOC ---
Exam Note: Brannon Note: Please also refer to the separate dictated note~for this date of service dictated separately.~Patient seen individually. Discussed the patient with Nursing staff reviewed the chart.~Reviewed interim history and current functioning. Reviewed vital signs,~Labs/ Radiology~and current medications noted below. Continue current treatment with the changes noted in the dictated addendum note Assessment: Vital Signs/I&O: Vital Signs Date Time Temp Pulse Resp B/P (MAP) Pulse Ox O2 Delivery O2 Flow Rate FiO2 02/07/21 15:30 97.8 87 20 136/80 (98) 97 02/05/21 05:44 Room Air I & O 02/06/21 02/06/21 02/07/21 15:00 23:00 07:00 Intake Total 480 ml 360 ml Balance 480 ml 360 ml Current Medications: Meds: Current Medications Medications (Trade) Dose Ordered Sig/Flavio Route PRN Reason Start Time Stop Time Status Last Admin Dose Admin Olanzapine (ZyPREXA ZYDIS) 5 mg PRN Q2HRS PRN PO PSYCHOSIS 01/28/21 13:15 02/02/21 01:21 Acetaminophen (Tylenol) 650 mg PRN Q6HRS PRN PO PAIN 01/28/21 13:30 02/04/21 15:26 Calcium Carbonate/ Glycine (Tums) 500 mg PRN Q2HR PRN PO INDIGESTION 01/28/21 14:30 Vitamin D (Vitamin D3) 50,000 unit QSA PO 01/29/21 16:00 02/05/21 14:06 Docusate Sodium (Colace) 100 mg PRN DAILY PRN PO HARD STOOLS 01/28/21 13:30 Haloperidol (Haldol) 7.5 mg PRN Q6HRS PRN PO ANXIETY / AGITATION 01/28/21 13:30 01/28/21 20:10 DC Ibuprofen (Motrin) 400 mg PRN Q6HRS PRN PO INFLAMMATION 01/28/21 18:00 Lorazepam (Ativan) 2 mg PRN Q6HRS PRN PO 2ND CHOICE ANXIETY/AGITATION 01/28/21 13:30 02/05/21 14:06 Multi-Ingredient Ointment (Analgesic [place]) 1 bria PRN Q1HR PRN TP MUSCLE PAIN 01/28/21 13:30 01/28/21 20:53 Nystatin (Nystop) 1 bria BID TP 01/28/21 21:00 01/30/21 19:00 DC 01/28/21 20:52 Trazodone HCl (Desyrel) 25 mg DAILY PO 01/29/21 09:00 02/07/21 08:22 Trazodone HCl (Desyrel) 50 mg QHS PO 01/28/21 21:00 02/02/21 18:38 DC 02/01/21 21:23 Artificial Tears (Refresh Classic) 1 drop PRN Q6HRS PRN OD DRY EYE 01/28/21 14:30 Cyanocobalamin (Vitamin B-12) 1,000 mcg DAILY PO 01/29/21 09:00 02/07/21 08:22 Diphenhydramine HCl (Benadryl) 50 mg PRN Q6HRS PRN PO 1ST CHOICE ANXIETY/AGITATION 01/28/21 14:30 02/01/21 21:45 Haloperidol Decanoate (Haldol Decanoate Im Extended Release) 100 mg [id number] IM 02/07/21 09:00 02/07/21 13:18 Melatonin (Melatonin) 3 mg QHS PO 01/28/21 21:00 02/06/21 20:34 Non-Formulary Medication (Menthol (Biofreeze)) 1 bria PRN Q6HRS PRN TP PAIN 01/28/21 13:30 UNV Polyethylene Glycol (miraLAX) 17 gm PRN DAILY PRN PO CONSTIPATION 01/28/21 14:30 Divalproex Sodium (Depakote Er) 500 mg QHS PO 01/28/21 21:00 01/31/21 12:21 DC 01/30/21 19:35 Lidocaine (Lidoderm) 1 patch DAILY TD 01/29/21 18:00 02/07/21 08:23 Miscellaneous (Lidoderm Patch Removal) 1 ea QHS MC 01/29/21 21:00 02/06/21 20:35 Nystatin (Nystop) 1 bria PRN BID PRN TP REDNESS 01/30/21 19:00 Neomycin/ Polymyxin/ Bacitracin (Triple Antibiotic Ointment) 1 pkt PRN BID PRN TP SKIN PROTECTION 01/30/21 20:30 01/31/21 02:18 Divalproex Sodium (Depakote Er) 1,000 mg QHS PO 01/31/21 21:00 02/05/21 20:33 Clozapine (Clozaril) 25 mg QHS PO 01/31/21 21:00 02/03/21 22:06 DC 02/01/21 21:23 Trazodone HCl (Desyrel) 50 mg PRN QHS PRN PO INSOMNIA, MAY REPEAT X1 02/02/21 18:45 Mirtazapine (Remeron) 7.5 mg QHS PO 02/02/21 21:00 02/06/21 20:34 Clozapine (Clozaril) 25 mg DAILY PO 02/04/21 09:00 02/07/21 18:47 DC 02/07/21 17:20 Clozapine (Clozaril) 50 mg DAILY PO 02/08/21 09:00 Current Medications Medications (Trade) Dose Ordered Sig/Flavio Route PRN Reason Start Time Stop Time Status Last Admin Dose Admin Haloperidol Decanoate (Haldol Decanoate Im Extended Release) 100 mg [id number] IM 02/07/21 09:00 02/07/21 13:18 I have reviewed the current psychotropics carefully including drug interactions. Risk benefit ratio favors no change other than as noted in my dictated progress note. Diagnosis: Problems: (1) Schizoaffective disorder, bipolar type (2) Impulse control disorder, unspecified (3) Anxiety disorder, unspecified (4) Schizophrenia, paranoid, chronic with acute exacerbation (5) Bipolar disorder, current episode mixed, severe, with psychotic features LUPE CASTELLANOS MD Feb 07, 2021 21:12
[2021-02-07] MEDS: MIRTAZAPINE 7.5 MG TABLET. PO SCH (23:19)
[2021-02-07] MEDS: MELATONIN 3 MG TABLET PO SCH (23:19)
[2021-02-07] MEDS: METHYL SALICYLATE/MENTHOL TOPICAL OINTMENT 57GM TUBE. TP PRN (23:26)
[2021-02-07] MEDS: DIVALPROEX ER 500 MG TAB.ER.24H PO SCH (23:27)
--- NOTE | 2021-02-08 00:28 | NUR ---
Patient came out of her room to ask for a snack and a drink. Patient compliant with some medications, she continues to refuse depakote, tonight she stated that it will make her hair fall out. Patient reports lower back pain and requested muscle rub. PRN Janes franklin applied per order to patients lumbar and sacral spine. Patient had calmed down from shower and was not longer yelling and acting inappropriately.
[2021-02-08] MEDS: METHYL SALICYLATE/MENTHOL TOPICAL OINTMENT 57GM TUBE. TP PRN ×2 (05:40→21:01)
[2021-02-08 06:29] VITALS: BP 111/75
[2021-02-08] MEDS: LIDOCAINE (700MG/PATCH) PATCH. TD SCH (08:47)
[2021-02-08] MEDS: CYANOCOBALAMIN (VITAMIN B-12) 1,000 MCG TABLET. PO SCH (08:47)
[2021-02-08] MEDS: traZODone 50 MG TABLET. PO SCH (08:48)
[2021-02-08] MEDS: cloZAPine 25 MG TABLET PO SCH (08:51)
[2021-02-08] MEDS: CALCIUM CARBONATE 500 MG TAB.CHEW PO PRN ×2 (08:52→12:30)
[2021-02-08] MEDS: IBUPROFEN 400 MG TABLET. PO PRN (08:53)
[2021-02-08] MEDS: NEOMY/BACITR/POLYMYXIN OINT PACKET. TP PRN (13:15)
--- NOTE | 2021-02-08 14:39 | NUR ---
Nursing note: Pt in dining room for AM med pass and assessment. She is pleasant and compliant with all meds except for Clozaril. Clozaril was crushed and hidden in her soup at lunch. Pt c/o indigestion and lower back pain. Several PRNs have been provided per pt request which have all been effective. She has been withdrawn to her room this shift. She is currently in her bed resting. Will continue to monitor.
[2021-02-08 15:58] VITALS: BP 128/84
--- NOTE | 2021-02-08 20:36 | PDOC ---
Exam Note: Brannon Note: Please also refer to the separate dictated note~for this date of service dictated separately.~Patient seen individually. Discussed the patient with Nursing staff reviewed the chart.~Reviewed interim history and current functioning. Reviewed vital signs,~Labs/ Radiology~and current medications noted below. Continue current treatment with the changes noted in the dictated addendum note Assessment: Vital Signs/I&O: Vital Signs Date Time Temp Pulse Resp B/P (MAP) Pulse Ox O2 Delivery O2 Flow Rate FiO2 02/08/21 15:58 98.4 79 18 128/84 (99) 97 02/05/21 05:44 Room Air I & O 02/07/21 02/07/21 02/08/21 15:00 23:00 07:00 Intake Total 240 ml 560 ml Balance 240 ml 560 ml Current Medications: Meds: Current Medications Medications (Trade) Dose Ordered Sig/Flavio Route PRN Reason Start Time Stop Time Status Last Admin Dose Admin Olanzapine (ZyPREXA ZYDIS) 5 mg PRN Q2HRS PRN PO PSYCHOSIS 01/28/21 13:15 02/02/21 01:21 Acetaminophen (Tylenol) 650 mg PRN Q6HRS PRN PO PAIN 01/28/21 13:30 02/04/21 15:26 Calcium Carbonate/ Glycine (Tums) 500 mg PRN Q2HR PRN PO INDIGESTION 01/28/21 14:30 02/08/21 12:30 Vitamin D (Vitamin D3) 50,000 unit QSA PO 01/29/21 16:00 02/05/21 14:06 Docusate Sodium (Colace) 100 mg PRN DAILY PRN PO HARD STOOLS 01/28/21 13:30 Haloperidol (Haldol) 7.5 mg PRN Q6HRS PRN PO ANXIETY / AGITATION 01/28/21 13:30 01/28/21 20:10 DC Ibuprofen (Motrin) 400 mg PRN Q6HRS PRN PO INFLAMMATION 01/28/21 18:00 02/08/21 08:53 Lorazepam (Ativan) 2 mg PRN Q6HRS PRN PO 2ND CHOICE ANXIETY/AGITATION 01/28/21 13:30 02/05/21 14:06 Multi-Ingredient Ointment (Analgesic [place]) 1 bria PRN Q1HR PRN TP MUSCLE PAIN 01/28/21 13:30 02/08/21 05:40 Nystatin (Nystop) 1 bria BID TP 01/28/21 21:00 01/30/21 19:00 DC 01/28/21 20:52 Trazodone HCl (Desyrel) 25 mg DAILY PO 01/29/21 09:00 02/08/21 08:48 Trazodone HCl (Desyrel) 50 mg QHS PO 01/28/21 21:00 02/02/21 18:38 DC 02/01/21 21:23 Artificial Tears (Refresh Classic) 1 drop PRN Q6HRS PRN OD DRY EYE 01/28/21 14:30 Cyanocobalamin (Vitamin B-12) 1,000 mcg DAILY PO 01/29/21 09:00 02/08/21 08:47 Diphenhydramine HCl (Benadryl) 50 mg PRN Q6HRS PRN PO 1ST CHOICE ANXIETY/AGITATION 01/28/21 14:30 02/01/21 21:45 Haloperidol Decanoate (Haldol Decanoate Im Extended Release) 100 mg [id number] IM 02/07/21 09:00 02/07/21 13:18 Melatonin (Melatonin) 3 mg QHS PO 01/28/21 21:00 02/07/21 23:19 Non-Formulary Medication (Menthol (Biofreeze)) 1 bria PRN Q6HRS PRN TP PAIN 01/28/21 13:30 UNV Polyethylene Glycol (miraLAX) 17 gm PRN DAILY PRN PO CONSTIPATION 01/28/21 14:30 Divalproex Sodium (Depakote Er) 500 mg QHS PO 01/28/21 21:00 01/31/21 12:21 DC 01/30/21 19:35 Lidocaine (Lidoderm) 1 patch DAILY TD 01/29/21 18:00 02/08/21 08:47 Miscellaneous (Lidoderm Patch Removal) 1 ea QHS MC 01/29/21 21:00 02/07/21 21:00 Nystatin (Nystop) 1 bria PRN BID PRN TP REDNESS 01/30/21 19:00 Neomycin/ Polymyxin/ Bacitracin (Triple Antibiotic Ointment) 1 pkt PRN BID PRN TP SKIN PROTECTION 01/30/21 20:30 02/08/21 13:15 Divalproex Sodium (Depakote Er) 1,000 mg QHS PO 01/31/21 21:00 02/05/21 20:33 Clozapine (Clozaril) 25 mg QHS PO 01/31/21 21:00 02/03/21 22:06 DC 02/01/21 21:23 Trazodone HCl (Desyrel) 50 mg PRN QHS PRN PO INSOMNIA, MAY REPEAT X1 02/02/21 18:45 Mirtazapine (Remeron) 7.5 mg QHS PO 02/02/21 21:00 02/07/21 23:19 Clozapine (Clozaril) 25 mg DAILY PO 02/04/21 09:00 02/07/21 18:47 DC 02/07/21 17:20 Clozapine (Clozaril) 50 mg DAILY PO 02/08/21 09:00 02/08/21 08:51 Current Medications Medications (Trade) Dose Ordered Sig/Flavio Route PRN Reason Start Time Stop Time Status Last Admin Dose Admin Clozapine (Clozaril) 50 mg DAILY PO 02/08/21 09:00 02/08/21 08:51 I have reviewed the current psychotropics carefully including drug interactions. Risk benefit ratio favors no change other than as noted in my dictated progress note. Diagnosis: Problems: (1) Schizoaffective disorder, bipolar type (2) Impulse control disorder, unspecified (3) Anxiety disorder, unspecified (4) Schizophrenia, paranoid, chronic with acute exacerbation (5) Bipolar disorder, current episode mixed, severe, with psychotic features LUPE CASTELLANOS MD Feb 08, 2021 20:36
[2021-02-08] MEDS: MIRTAZAPINE 7.5 MG TABLET. PO SCH (20:50)
[2021-02-08] MEDS: PATCH REMOVAL. MC SCH (20:50)
[2021-02-08] MEDS: DIVALPROEX ER 500 MG TAB.ER.24H PO SCH (20:50)
[2021-02-08] MEDS: MELATONIN 3 MG TABLET PO SCH (20:50)
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
[2021-02-09] MEDS: IBUPROFEN 400 MG TABLET. PO PRN ×3 (00:13→21:31)
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
[2021-02-09 05:47] VITALS: BP 129/67
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
--- NOTE | 2021-02-09 06:38 | PDOC ---
Exam Note: Brannon Note: PThis note is a late entry for 02/08/2021 covers elements not covered in my initial note. Subjective: The patient was seen individually in the evening of 02/08/2021 with Dina MOFFETT, discussed and reviewed the chart. The patient slept 4-1/2 previous night. She remains psychotic, screaming at times, especially going to the shower and back from there. She refused Depakote, Clozaril was mixed in her food and given. She complains of dizziness. Review of Systems: No CV, , pulmonary, eye, ENT system symptoms on review. Reliability poor. Mental Status Exam: The patient is alert and oriented. Speech is coherent. Abstraction fair. She feels it is 1999 and she is 11 years old. Computation impaired. Language function intact. Attention span short. Mood and affect labile. No suicidal or homicidal ideation. She is quite paranoid. Laboratory Data: Reviewed. Impression: Schizophrenia, chronic paranoid with acute exacerbation versus schizoaffective disorder, bipolar type, mixed with psychotic features. Anxiety disorder unspecified. Impulse control disorder unspecified. Plan: We may need to increase Clozaril further post weekly absolute neutrophil counts. Assessment: Vital Signs/I&O: Vital Signs Date Time Temp Pulse Resp B/P (MAP) Pulse Ox O2 Delivery O2 Flow Rate FiO2 02/09/21 05:47 97.1 83 18 129/67 (87) 96 02/05/21 05:44 Room Air I & O 02/08/21 02/08/21 02/09/21 14:59 22:59 06:59 Intake Total 600 ml 320 ml Balance 600 ml 320 ml Current Medications: Meds: Current Medications Medications (Trade) Dose Ordered Sig/Flavio Route PRN Reason Start Time Stop Time Status Last Admin Dose Admin Olanzapine (ZyPREXA ZYDIS) 5 mg PRN Q2HRS PRN PO PSYCHOSIS 01/28/21 13:15 02/02/21 01:21 Acetaminophen (Tylenol) 650 mg PRN Q6HRS PRN PO PAIN 01/28/21 13:30 02/04/21 15:26 Calcium Carbonate/ Glycine (Tums) 500 mg PRN Q2HR PRN PO INDIGESTION 01/28/21 14:30 02/08/21 12:30 Vitamin D (Vitamin D3) 50,000 unit QSA PO 01/29/21 16:00 02/05/21 14:06 Docusate Sodium (Colace) 100 mg PRN DAILY PRN PO HARD STOOLS 01/28/21 13:30 Haloperidol (Haldol) 7.5 mg PRN Q6HRS PRN PO ANXIETY / AGITATION 01/28/21 13:30 01/28/21 20:10 DC Ibuprofen (Motrin) 400 mg PRN Q6HRS PRN PO INFLAMMATION 01/28/21 18:00 02/09/21 00:13 Lorazepam (Ativan) 2 mg PRN Q6HRS PRN PO 2ND CHOICE ANXIETY/AGITATION 01/28/21 13:30 02/05/21 14:06 Multi-Ingredient Ointment (Analgesic [place]) 1 bria PRN Q1HR PRN TP MUSCLE PAIN 01/28/21 13:30 02/08/21 21:01 Nystatin (Nystop) 1 bria BID TP 01/28/21 21:00 01/30/21 19:00 DC 01/28/21 20:52 Trazodone HCl (Desyrel) 25 mg DAILY PO 01/29/21 09:00 02/08/21 08:48 Trazodone HCl (Desyrel) 50 mg QHS PO 01/28/21 21:00 02/02/21 18:38 DC 02/01/21 21:23 Artificial Tears (Refresh Classic) 1 drop PRN Q6HRS PRN OD DRY EYE 01/28/21 14:30 Cyanocobalamin (Vitamin B-12) 1,000 mcg DAILY PO 01/29/21 09:00 02/08/21 08:47 Diphenhydramine HCl (Benadryl) 50 mg PRN Q6HRS PRN PO 1ST CHOICE ANXIETY/AGITATION 01/28/21 14:30 02/01/21 21:45 Haloperidol Decanoate (Haldol Decanoate Im Extended Release) 100 mg [id number] IM 02/07/21 09:00 02/07/21 13:18 Melatonin (Melatonin) 3 mg QHS PO 01/28/21 21:00 02/08/21 20:50 Non-Formulary Medication (Menthol (Biofreeze)) 1 bria PRN Q6HRS PRN TP PAIN 01/28/21 13:30 UNV Polyethylene Glycol (miraLAX) 17 gm PRN DAILY PRN PO CONSTIPATION 01/28/21 14:30 Divalproex Sodium (Depakote Er) 500 mg QHS PO 01/28/21 21:00 01/31/21 12:21 DC 01/30/21 19:35 Lidocaine (Lidoderm) 1 patch DAILY TD 01/29/21 18:00 02/08/21 08:47 Miscellaneous (Lidoderm Patch Removal) 1 ea QHS MC 01/29/21 21:00 02/08/21 20:50 Nystatin (Nystop) 1 bria PRN BID PRN TP REDNESS 01/30/21 19:00 Neomycin/ Polymyxin/ Bacitracin (Triple Antibiotic Ointment) 1 pkt PRN BID PRN TP SKIN PROTECTION 01/30/21 20:30 02/08/21 13:15 Divalproex Sodium (Depakote Er) 1,000 mg QHS PO 01/31/21 21:00 02/08/21 20:50 Clozapine (Clozaril) 25 mg QHS PO 01/31/21 21:00 02/03/21 22:06 DC 02/01/21 21:23 Trazodone HCl (Desyrel) 50 mg PRN QHS PRN PO INSOMNIA, MAY REPEAT X1 02/02/21 18:45 Mirtazapine (Remeron) 7.5 mg QHS PO 02/02/21 21:00 02/08/21 20:50 Clozapine (Clozaril) 25 mg DAILY PO 02/04/21 09:00 02/07/21 18:47 DC 02/07/21 17:20 Clozapine (Clozaril) 50 mg DAILY PO 02/08/21 09:00 02/08/21 08:51 Current Medications Medications (Trade) Dose Ordered Sig/Flavio Route PRN Reason Start Time Stop Time Status Last Admin Dose Admin Clozapine (Clozaril) 50 mg DAILY PO 02/08/21 09:00 02/08/21 08:51 I have reviewed the current psychotropics carefully including drug interactions. Risk benefit ratio favors no change other than as noted in my dictated progress note. Diagnosis: Problems: (1) Schizoaffective disorder, bipolar type (2) Impulse control disorder, unspecified (3) Anxiety disorder, unspecified (4) Schizophrenia, paranoid, chronic with acute exacerbation (5) Bipolar disorder, current episode mixed, severe, with psychotic features LUPE CASTELLANOS MD Feb 09, 2021 06:38
[2021-02-09] MEDS: CYANOCOBALAMIN (VITAMIN B-12) 1,000 MCG TABLET. PO SCH (08:44)
[2021-02-09] MEDS: cloZAPine 25 MG TABLET PO SCH (08:45)
[2021-02-09] MEDS: traZODone 50 MG TABLET. PO SCH (08:45)
[2021-02-09] MEDS: CALCIUM CARBONATE 500 MG TAB.CHEW PO PRN (08:46)
[2021-02-09] MEDS: POLYVINYL ALCOHOL/POVIDONE/PF OPHTH SOLUTION DROPERETTE. OD PRN (08:46)
[2021-02-09] MEDS: NEOMY/BACITR/POLYMYXIN OINT PACKET. TP PRN (08:52)
[2021-02-09] MEDS: LIDOCAINE (700MG/PATCH) PATCH. TD SCH (09:00)
--- NOTE | 2021-02-09 10:23 | NUR ---
Nursing note: Pt in her room at time of AM med pass and assessment. She is compliant with all meds except for clozaril. Will attempt to hide it in her lunch. Pt is anxious about having a cold and demanding "pediacare". Pt was provided with gatorade, which she was not particularly happy about. Pt continues to request multiple PRNs for indigestion and dry eyes. PRN's provided. She reports that her pain is much better today. She is currently resting quietly in her room.
--- NOTE | 2021-02-09 14:41 | NUR ---
SONYA received call from Lisandro, SW single corner cutter at [facility] in [place]. Lisandro was curious if Frances has contacted SONYA to make arrangements for discharge. SONYA notified him that SW has not heard from Frances and questioned if she was next on the waiting list. Lisandro reports that they received the court orders and signed documents and should have reached out to SW to make the arrangements for discharge for this coming week. Lisandro will reach out to see what the hold up is and will contact SONYA back with a more definitive answer. SONYA did give Lisandro an update on how pt is doing and confirmed that SW received an email re: court on Sunday as an update for pt.
[2021-02-09 15:48] VITALS: BP 148/86
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
--- NOTE | 2021-02-09 20:50 | PDOC ---
Exam Note: Brannon Note: Please also refer to the separate dictated note~for this date of service dictated separately.~Patient seen individually. Discussed the patient with Nursing staff reviewed the chart.~Reviewed interim history and current functioning. Reviewed vital signs,~Labs/ Radiology~and current medications noted below. Continue current treatment with the changes noted in the dictated addendum note Assessment: Vital Signs/I&O: Vital Signs Date Time Temp Pulse Resp B/P (MAP) Pulse Ox O2 Delivery O2 Flow Rate FiO2 02/09/21 15:48 97.6 94 20 148/86 (106) 96 Room Air I & O 02/08/21 02/08/21 02/09/21 15:00 23:00 07:00 Intake Total 600 ml 320 ml Balance 600 ml 320 ml Current Medications: Meds: Current Medications Medications (Trade) Dose Ordered Sig/Flavio Route PRN Reason Start Time Stop Time Status Last Admin Dose Admin Olanzapine (ZyPREXA ZYDIS) 5 mg PRN Q2HRS PRN PO PSYCHOSIS 01/28/21 13:15 02/02/21 01:21 Acetaminophen (Tylenol) 650 mg PRN Q6HRS PRN PO PAIN 01/28/21 13:30 02/04/21 15:26 Calcium Carbonate/ Glycine (Tums) 500 mg PRN Q2HR PRN PO INDIGESTION 01/28/21 14:30 02/09/21 08:46 Vitamin D (Vitamin D3) 50,000 unit QSA PO 01/29/21 16:00 02/05/21 14:06 Docusate Sodium (Colace) 100 mg PRN DAILY PRN PO HARD STOOLS 01/28/21 13:30 Haloperidol (Haldol) 7.5 mg PRN Q6HRS PRN PO ANXIETY / AGITATION 01/28/21 13:30 01/28/21 20:10 DC Ibuprofen (Motrin) 400 mg PRN Q6HRS PRN PO INFLAMMATION 01/28/21 18:00 02/09/21 14:38 Lorazepam (Ativan) 2 mg PRN Q6HRS PRN PO 2ND CHOICE ANXIETY/AGITATION 01/28/21 13:30 02/05/21 14:06 Multi-Ingredient Ointment (Analgesic [place]) 1 bria PRN Q1HR PRN TP MUSCLE PAIN 01/28/21 13:30 02/08/21 21:01 Nystatin (Nystop) 1 bria BID TP 01/28/21 21:00 01/30/21 19:00 DC 01/28/21 20:52 Trazodone HCl (Desyrel) 25 mg DAILY PO 01/29/21 09:00 02/09/21 08:45 Trazodone HCl (Desyrel) 50 mg QHS PO 01/28/21 21:00 02/02/21 18:38 DC 02/01/21 21:23 Artificial Tears (Refresh Classic) 1 drop PRN Q6HRS PRN OD DRY EYE 01/28/21 14:30 02/09/21 08:46 Cyanocobalamin (Vitamin B-12) 1,000 mcg DAILY PO 01/29/21 09:00 02/09/21 08:44 Diphenhydramine HCl (Benadryl) 50 mg PRN Q6HRS PRN PO 1ST CHOICE ANXIETY/AGITATION 01/28/21 14:30 02/01/21 21:45 Haloperidol Decanoate (Haldol Decanoate Im Extended Release) 100 mg [id number] IM 02/07/21 09:00 02/07/21 13:18 Melatonin (Melatonin) 3 mg QHS PO 01/28/21 21:00 02/08/21 20:50 Non-Formulary Medication (Menthol (Biofreeze)) 1 bria PRN Q6HRS PRN TP PAIN 01/28/21 13:30 UNV Polyethylene Glycol (miraLAX) 17 gm PRN DAILY PRN PO CONSTIPATION 01/28/21 14:30 Divalproex Sodium (Depakote Er) 500 mg QHS PO 01/28/21 21:00 01/31/21 12:21 DC 01/30/21 19:35 Lidocaine (Lidoderm) 1 patch DAILY TD 01/29/21 18:00 02/09/21 09:00 Miscellaneous (Lidoderm Patch Removal) 1 ea QHS MC 01/29/21 21:00 02/08/21 20:50 Nystatin (Nystop) 1 bria PRN BID PRN TP REDNESS 01/30/21 19:00 Neomycin/ Polymyxin/ Bacitracin (Triple Antibiotic Ointment) 1 pkt PRN BID PRN TP SKIN PROTECTION 01/30/21 20:30 02/09/21 08:52 Divalproex Sodium (Depakote Er) 1,000 mg QHS PO 01/31/21 21:00 02/08/21 20:50 Clozapine (Clozaril) 25 mg QHS PO 01/31/21 21:00 02/03/21 22:06 DC 02/01/21 21:23 Trazodone HCl (Desyrel) 50 mg PRN QHS PRN PO INSOMNIA, MAY REPEAT X1 02/02/21 18:45 Mirtazapine (Remeron) 7.5 mg QHS PO 02/02/21 21:00 02/08/21 20:50 Clozapine (Clozaril) 25 mg DAILY PO 02/04/21 09:00 02/07/21 18:47 DC 02/07/21 17:20 Clozapine (Clozaril) 50 mg DAILY PO 02/08/21 09:00 02/09/21 08:45 I have reviewed the current psychotropics carefully including drug interactions. Risk benefit ratio favors no change other than as noted in my dictated progress note. Diagnosis: Problems: (1) Schizoaffective disorder, bipolar type (2) Impulse control disorder, unspecified (3) Anxiety disorder, unspecified (4) Schizophrenia, paranoid, chronic with acute exacerbation (5) Bipolar disorder, current episode mixed, severe, with psychotic features LUPE CASTELLANOS MD Feb 09, 2021 20:50
[2021-02-09] MEDS: DIVALPROEX ER 500 MG TAB.ER.24H PO SCH (21:00)
[2021-02-09] MEDS: MELATONIN 3 MG TABLET PO SCH (21:00)
[2021-02-09] MEDS: PATCH REMOVAL. MC SCH (21:00)
[2021-02-09] MEDS: MIRTAZAPINE 7.5 MG TABLET. PO SCH (21:26)
--- NOTE | 2021-02-09 23:00 | NUR ---
Nursing Note The patient was located in her room for her assessment and medication pass. The patient refused to answer assessment questions stating "they want that information to use against me." The patient also reports that she is 11 years old. The patient refused all medication other that Remeron. The patient is currently sleeping in her room.
[2021-02-09] MEDS: METHYL SALICYLATE/MENTHOL TOPICAL OINTMENT 57GM TUBE. TP PRN (23:48)
[2021-02-09] MEDS: LORazepam 1 MG TABLET PO PRN (23:48)
[2021-02-10 06:13] VITALS: BP 129/85
--- NOTE | 2021-02-10 07:05 | PDOC ---
Exam Note: Brannon Note: This note is a late entry for 02/09/2021 covers elements not covered in my initial note. Subjective: The patient was seen individually in the evening of 02/09/2021 with Chaparro MOFFETT, discussed and reviewed the chart. The patient slept 2-1/4 previous night. Overall the patient has been refusing to take the Clozaril. I addressed this with her in her room this evening. She started yelling, screaming, refused her h.s. medications. Review of Systems: No CV, , pulmonary, eye, ENT system symptoms on review. Reliability varies. She does complain of some sedation. Mental Status Exam: The patient is oriented to herself and situation. Speech is coherent, rapid and loud at times. Abstraction fair. Computation impaired. Language function intact. Mood and affect remains labile. Laboratory Data: Reviewed. Impression: Schizophrenia, chronic paranoid with acute exacerbation versus schizoaffective disorder, bipolar type, mixed with psychotic features. Anxiety disorder unspecified. Impulse control disorder unspecified. Plan: Continue rest unchanged for now. Assessment: Vital Signs/I&O: Vital Signs Date Time Temp Pulse Resp B/P (MAP) Pulse Ox O2 Delivery O2 Flow Rate FiO2 02/10/21 06:13 98.2 88 20 129/85 (100) 96 02/09/21 15:48 Room Air I & O 02/09/21 02/09/21 02/10/21 15:00 23:00 07:00 Intake Total 840 ml 480 ml Balance 840 ml 480 ml Current Medications: Meds: Current Medications Medications (Trade) Dose Ordered Sig/Flavio Route PRN Reason Start Time Stop Time Status Last Admin Dose Admin Olanzapine (ZyPREXA ZYDIS) 5 mg PRN Q2HRS PRN PO PSYCHOSIS 01/28/21 13:15 02/02/21 01:21 Acetaminophen (Tylenol) 650 mg PRN Q6HRS PRN PO PAIN 01/28/21 13:30 02/04/21 15:26 Calcium Carbonate/ Glycine (Tums) 500 mg PRN Q2HR PRN PO INDIGESTION 01/28/21 14:30 02/09/21 08:46 Vitamin D (Vitamin D3) 50,000 unit QSA PO 01/29/21 16:00 02/05/21 14:06 Docusate Sodium (Colace) 100 mg PRN DAILY PRN PO HARD STOOLS 01/28/21 13:30 Haloperidol (Haldol) 7.5 mg PRN Q6HRS PRN PO ANXIETY / AGITATION 01/28/21 13:30 01/28/21 20:10 DC Ibuprofen (Motrin) 400 mg PRN Q6HRS PRN PO INFLAMMATION 01/28/21 18:00 02/09/21 14:38 Lorazepam (Ativan) 2 mg PRN Q6HRS PRN PO 2ND CHOICE ANXIETY/AGITATION 01/28/21 13:30 02/05/21 14:06 Multi-Ingredient Ointment (Analgesic [place]) 1 bria PRN Q1HR PRN TP MUSCLE PAIN 01/28/21 13:30 02/09/21 23:48 Nystatin (Nystop) 1 bria BID TP 01/28/21 21:00 01/30/21 19:00 DC 01/28/21 20:52 Trazodone HCl (Desyrel) 25 mg DAILY PO 01/29/21 09:00 02/09/21 08:45 Trazodone HCl (Desyrel) 50 mg QHS PO 01/28/21 21:00 02/02/21 18:38 DC 02/01/21 21:23 Artificial Tears (Refresh Classic) 1 drop PRN Q6HRS PRN OD DRY EYE 01/28/21 14:30 02/09/21 08:46 Cyanocobalamin (Vitamin B-12) 1,000 mcg DAILY PO 01/29/21 09:00 02/09/21 08:44 Diphenhydramine HCl (Benadryl) 50 mg PRN Q6HRS PRN PO 1ST CHOICE ANXIETY/AGITATION 01/28/21 14:30 02/01/21 21:45 Haloperidol Decanoate (Haldol Decanoate Im Extended Release) 100 mg [id number] IM 02/07/21 09:00 02/07/21 13:18 Melatonin (Melatonin) 3 mg QHS PO 01/28/21 21:00 02/08/21 20:50 Non-Formulary Medication (Menthol (Biofreeze)) 1 bria PRN Q6HRS PRN TP PAIN 01/28/21 13:30 UNV Polyethylene Glycol (miraLAX) 17 gm PRN DAILY PRN PO CONSTIPATION 01/28/21 14:30 Divalproex Sodium (Depakote Er) 500 mg QHS PO 01/28/21 21:00 01/31/21 12:21 DC 01/30/21 19:35 Lidocaine (Lidoderm) 1 patch DAILY TD 01/29/21 18:00 02/09/21 09:00 Miscellaneous (Lidoderm Patch Removal) 1 ea QHS MC 01/29/21 21:00 02/08/21 20:50 Nystatin (Nystop) 1 bria PRN BID PRN TP REDNESS 01/30/21 19:00 Neomycin/ Polymyxin/ Bacitracin (Triple Antibiotic Ointment) 1 pkt PRN BID PRN TP SKIN PROTECTION 01/30/21 20:30 02/09/21 08:52 Divalproex Sodium (Depakote Er) 1,000 mg QHS PO 01/31/21 21:00 02/08/21 20:50 Clozapine (Clozaril) 25 mg QHS PO 01/31/21 21:00 02/03/21 22:06 DC 02/01/21 21:23 Trazodone HCl (Desyrel) 50 mg PRN QHS PRN PO INSOMNIA, MAY REPEAT X1 02/02/21 18:45 Mirtazapine (Remeron) 7.5 mg QHS PO 02/02/21 21:00 02/09/21 21:26 Clozapine (Clozaril) 25 mg DAILY PO 02/04/21 09:00 02/07/21 18:47 DC 02/07/21 17:20 Clozapine (Clozaril) 50 mg DAILY PO 02/08/21 09:00 02/09/21 08:45 I have reviewed the current psychotropics carefully including drug interactions. Risk benefit ratio favors no change other than as noted in my dictated progress note. Diagnosis: Problems: (1) Schizoaffective disorder, bipolar type (2) Impulse control disorder, unspecified (3) Anxiety disorder, unspecified (4) Schizophrenia, paranoid, chronic with acute exacerbation (5) Bipolar disorder, current episode mixed, severe, with psychotic features LUPE CASTELLANOS MD Feb 10, 2021 07:05
[2021-02-10] MEDS: LIDOCAINE (700MG/PATCH) PATCH. TD SCH (09:00)
[2021-02-10] MEDS: CYANOCOBALAMIN (VITAMIN B-12) 1,000 MCG TABLET. PO SCH (09:23)
[2021-02-10] MEDS: traZODone 50 MG TABLET. PO SCH (09:23)
[2021-02-10] MEDS: cloZAPine 25 MG TABLET PO SCH (09:28)
[2021-02-10] MEDS: NEOMY/BACITR/POLYMYXIN OINT PACKET. TP PRN (09:34)
[2021-02-10] MEDS: POLYVINYL ALCOHOL/POVIDONE/PF OPHTH SOLUTION DROPERETTE. OD PRN (09:34)
[2021-02-10] MEDS: CALCIUM CARBONATE 500 MG TAB.CHEW PO PRN (09:34)
[2021-02-10] MEDS: METHYL SALICYLATE/MENTHOL TOPICAL OINTMENT 57GM TUBE. TP PRN (09:34)
[2021-02-10] MEDS: diphenhydrAMINE HCL 25 MG CAPSULE PO PRN (11:58)
[2021-02-10 12:10] VITALS: BP 105/75
[2021-02-10] MEDS: IBUPROFEN 400 MG TABLET. PO PRN (12:57)
[2021-02-10] MEDS: LORazepam 1 MG TABLET PO PRN (13:03)
[2021-02-10 15:30] VITALS: BP 156/87
--- NOTE | 2021-02-10 16:29 | NUR ---
SONYA received call from Elias at [facility] inquiring about getting records sent over to them. Elias questioned what pt was here for and noted that [place] has a "bad habit of sending people out and not taking them back". Elias requested that SONYA send over records to for review. He noted that staff are excited to have pt back as she is quite "entertaining" and some of the staff there report loving her as she had been there for an extremely long time. Elias believes that they may be able to accept pt tomorrow and will plan to contact SONYA tomorrow to confirm that potential admission.
--- NOTE | 2021-02-10 17:00 | NUR ---
Nursing note: Pt has been very demanding and attention seeking this shift. She was able to say today's date in conversation, but when I mentioned that she got it right she responded "No, I just know your fake date. It's actually June 2011." Pt screams out that her hair and body are covered in poison and "you need to wear lavender gloves when you touch me because I'm covered in poison." Pt continues to refuse clozaril so it is crushed and hidden in her food at mealtimes. Pt was walking to lunch when her boots lost traction and she slipped and fell. Pt claimed she landed on her knee and that it hurt. VSS and no visible injuries of knee. Pt able to get up and walk to dining room immediately afterwards. PRNs provided to pt per request. Dr. Mccain notified and no new orders received. Will continue to monitor.
--- NOTE | 2021-02-10 20:47 | PDOC ---
Exam Note: Brannon Note: Please also refer to the separate dictated note~for this date of service dictated separately.~Patient seen individually. Discussed the patient with Nursing staff reviewed the chart.~Reviewed interim history and current functioning. Reviewed vital signs,~Labs/ Radiology~and current medications noted below. Continue current treatment with the changes noted in the dictated addendum note Assessment: Vital Signs/I&O: Vital Signs Date Time Temp Pulse Resp B/P (MAP) Pulse Ox O2 Delivery O2 Flow Rate FiO2 02/10/21 15:30 98.5 103 20 156/87 (110) 95 Room Air I & O 02/09/21 02/09/21 02/10/21 15:00 23:00 07:00 Intake Total 840 ml 480 ml Balance 840 ml 480 ml Current Medications: Meds: Current Medications Medications (Trade) Dose Ordered Sig/Flavio Route PRN Reason Start Time Stop Time Status Last Admin Dose Admin Olanzapine (ZyPREXA ZYDIS) 5 mg PRN Q2HRS PRN PO PSYCHOSIS 01/28/21 13:15 02/02/21 01:21 Acetaminophen (Tylenol) 650 mg PRN Q6HRS PRN PO PAIN 01/28/21 13:30 02/04/21 15:26 Calcium Carbonate/ Glycine (Tums) 500 mg PRN Q2HR PRN PO INDIGESTION 01/28/21 14:30 02/10/21 09:34 Vitamin D (Vitamin D3) 50,000 unit QSA PO 01/29/21 16:00 02/05/21 14:06 Docusate Sodium (Colace) 100 mg PRN DAILY PRN PO HARD STOOLS 01/28/21 13:30 Haloperidol (Haldol) 7.5 mg PRN Q6HRS PRN PO ANXIETY / AGITATION 01/28/21 13:30 01/28/21 20:10 DC Ibuprofen (Motrin) 400 mg PRN Q6HRS PRN PO INFLAMMATION 01/28/21 18:00 02/10/21 12:57 Lorazepam (Ativan) 2 mg PRN Q6HRS PRN PO 2ND CHOICE ANXIETY/AGITATION 01/28/21 13:30 02/10/21 13:03 Multi-Ingredient Ointment (Analgesic [place]) 1 bria PRN Q1HR PRN TP MUSCLE PAIN 01/28/21 13:30 02/10/21 09:34 Nystatin (Nystop) 1 bria BID TP 01/28/21 21:00 01/30/21 19:00 DC 01/28/21 20:52 Trazodone HCl (Desyrel) 25 mg DAILY PO 01/29/21 09:00 02/10/21 09:23 Trazodone HCl (Desyrel) 50 mg QHS PO 01/28/21 21:00 02/02/21 18:38 DC 02/01/21 21:23 Artificial Tears (Refresh Classic) 1 drop PRN Q6HRS PRN OD DRY EYE 01/28/21 14:30 02/10/21 09:34 Cyanocobalamin (Vitamin B-12) 1,000 mcg DAILY PO 01/29/21 09:00 02/10/21 09:23 Diphenhydramine HCl (Benadryl) 50 mg PRN Q6HRS PRN PO 1ST CHOICE ANXIETY/AGITATION 01/28/21 14:30 02/01/21 21:45 Haloperidol Decanoate (Haldol Decanoate Im Extended Release) 100 mg [id number] IM 02/07/21 09:00 02/07/21 13:18 Melatonin (Melatonin) 3 mg QHS PO 01/28/21 21:00 02/08/21 20:50 Non-Formulary Medication (Menthol (Biofreeze)) 1 bria PRN Q6HRS PRN TP PAIN 01/28/21 13:30 UNV Polyethylene Glycol (miraLAX) 17 gm PRN DAILY PRN PO CONSTIPATION 01/28/21 14:30 Divalproex Sodium (Depakote Er) 500 mg QHS PO 01/28/21 21:00 01/31/21 12:21 DC 01/30/21 19:35 Lidocaine (Lidoderm) 1 patch DAILY TD 01/29/21 18:00 02/09/21 09:00 Miscellaneous (Lidoderm Patch Removal) 1 ea QHS MC 01/29/21 21:00 02/08/21 20:50 Nystatin (Nystop) 1 bria PRN BID PRN TP REDNESS 01/30/21 19:00 Neomycin/ Polymyxin/ Bacitracin (Triple Antibiotic Ointment) 1 pkt PRN BID PRN TP SKIN PROTECTION 01/30/21 20:30 02/10/21 09:34 Divalproex Sodium (Depakote Er) 1,000 mg QHS PO 01/31/21 21:00 02/08/21 20:50 Clozapine (Clozaril) 25 mg QHS PO 01/31/21 21:00 02/03/21 22:06 DC 02/01/21 21:23 Trazodone HCl (Desyrel) 50 mg PRN QHS PRN PO INSOMNIA, MAY REPEAT X1 02/02/21 18:45 Mirtazapine (Remeron) 7.5 mg QHS PO 02/02/21 21:00 02/09/21 21:26 Clozapine (Clozaril) 25 mg DAILY PO 02/04/21 09:00 02/07/21 18:47 DC 02/07/21 17:20 Clozapine (Clozaril) 50 mg DAILY PO 02/08/21 09:00 02/10/21 09:28 I have reviewed the current psychotropics carefully including drug interactions. Risk benefit ratio favors no change other than as noted in my dictated progress note. Diagnosis: Problems: (1) Schizoaffective disorder, bipolar type (2) Impulse control disorder, unspecified (3) Anxiety disorder, unspecified (4) Schizophrenia, paranoid, chronic with acute exacerbation (5) Bipolar disorder, current episode mixed, severe, with psychotic features LUPE CASTELLANOS MD Feb 10, 2021 20:47
[2021-02-10] MEDS: PATCH REMOVAL. MC SCH (21:00)
[2021-02-10] MEDS: MIRTAZAPINE 7.5 MG TABLET. PO SCH (21:00)
[2021-02-10] MEDS: MELATONIN 3 MG TABLET PO SCH (21:00)
[2021-02-10] MEDS: DIVALPROEX ER 500 MG TAB.ER.24H PO SCH (21:00)
[2021-02-11] MEDS: IBUPROFEN 400 MG TABLET. PO PRN ×2 (02:09→09:06)
[2021-02-11] MEDS ORDERED: CLOZ25TA PO (02:55)
[2021-02-11] MEDS ORDERED: OLAN5TAB99 PO (02:57)
[2021-02-11] MEDS ORDERED: NEOM1OIN6 TP (03:00)
[2021-02-11] MEDS ORDERED: LIDO700A21 TP (03:01)
[2021-02-11] MEDS ORDERED: CHOL500021 PO (03:02)
[2021-02-11] MEDS ORDERED: MELA3TAB4 PO (03:03)
[2021-02-11] MEDS ORDERED: DIVA500T4 PO (03:04)
[2021-02-11 06:29] VITALS: BP 105/70
--- NOTE | 2021-02-11 06:30 | NUR ---
Nursing Note The patient was located in her room laying in her bed sleeping this shift. The patient slept throughout the shift and her medications were held due to drowsiness. Patient was unable to complete her assessment due to sleeping. Patient was cooperative and pleasant during AM cares. Currently sleeping in her room.
--- NOTE | 2021-02-11 06:53 | PDOC ---
Exam Note: Brannon Note: This note is a late entry for 02/10/2021 covers elements not covered in my initial note. Subjective: The patient was seen individually in the evening of 02/10/2021 with Chaparro MOFFETT, discussed and reviewed the chart. The patient slept 2-1/2 previous night. The patient has been intermittently agitated, refusing her medications, at times sedated and withdrawn to her room. Previous evening she was quite agitated at one point got very obsessive not being able to differentiate between Ativan and lorazepam. Last evening it was very difficult for her but by this morning she was better. Review of Systems: No CV, , pulmonary, eye, ENT system symptoms on review. She gets easily agitated. Positive for tiredness. Mental Status Exam: The patient is oriented to herself and situation. I met with her in her room. She was sedated, withdrawn. Speech is moderate latency, less pressured. Abstraction fair. Computation impaired. Language function intact. Mood and affect remains labile. Laboratory Data: Reviewed. Impression: Schizophrenia, chronic paranoid with acute exacerbation versus schizoaffective disorder, bipolar type, mixed with psychotic features. Anxiety disorder unspecified. Impulse control disorder unspecified. Plan: Continue rest unchanged for now. Assessment: Vital Signs/I&O: Vital Signs Date Time Temp Pulse Resp B/P (MAP) Pulse Ox O2 Delivery O2 Flow Rate FiO2 02/11/21 06:29 97.5 65 22 105/70 (82) 95 02/10/21 15:30 Room Air I & O 02/10/21 02/10/21 02/11/21 15:00 23:00 07:00 Intake Total 360 ml 240 ml Balance 360 ml 240 ml Current Medications: Meds: Current Medications Medications (Trade) Dose Ordered Sig/Flavio Route PRN Reason Start Time Stop Time Status Last Admin Dose Admin Olanzapine (ZyPREXA ZYDIS) 5 mg PRN Q2HRS PRN PO PSYCHOSIS 01/28/21 13:15 02/02/21 01:21 Acetaminophen (Tylenol) 650 mg PRN Q6HRS PRN PO PAIN 01/28/21 13:30 02/04/21 15:26 Calcium Carbonate/ Glycine (Tums) 500 mg PRN Q2HR PRN PO INDIGESTION 01/28/21 14:30 02/10/21 09:34 Vitamin D (Vitamin D3) 50,000 unit QSA PO 01/29/21 16:00 02/05/21 14:06 Docusate Sodium (Colace) 100 mg PRN DAILY PRN PO HARD STOOLS 01/28/21 13:30 Haloperidol (Haldol) 7.5 mg PRN Q6HRS PRN PO ANXIETY / AGITATION 01/28/21 13:30 01/28/21 20:10 DC Ibuprofen (Motrin) 400 mg PRN Q6HRS PRN PO INFLAMMATION 01/28/21 18:00 02/10/21 12:57 Lorazepam (Ativan) 2 mg PRN Q6HRS PRN PO 2ND CHOICE ANXIETY/AGITATION 01/28/21 13:30 02/10/21 13:03 Multi-Ingredient Ointment (Analgesic [place]) 1 bria PRN Q1HR PRN TP MUSCLE PAIN 01/28/21 13:30 02/10/21 09:34 Nystatin (Nystop) 1 bria BID TP 01/28/21 21:00 01/30/21 19:00 DC 01/28/21 20:52 Trazodone HCl (Desyrel) 25 mg DAILY PO 01/29/21 09:00 02/10/21 09:23 Trazodone HCl (Desyrel) 50 mg QHS PO 01/28/21 21:00 02/02/21 18:38 DC 02/01/21 21:23 Artificial Tears (Refresh Classic) 1 drop PRN Q6HRS PRN OD DRY EYE 01/28/21 14:30 02/10/21 09:34 Cyanocobalamin (Vitamin B-12) 1,000 mcg DAILY PO 01/29/21 09:00 02/10/21 09:23 Diphenhydramine HCl (Benadryl) 50 mg PRN Q6HRS PRN PO 1ST CHOICE ANXIETY/AGITATION 01/28/21 14:30 02/01/21 21:45 Haloperidol Decanoate (Haldol Decanoate Im Extended Release) 100 mg [id number] IM 02/07/21 09:00 02/07/21 13:18 Melatonin (Melatonin) 3 mg QHS PO 01/28/21 21:00 02/08/21 20:50 Non-Formulary Medication (Menthol (Biofreeze)) 1 bria PRN Q6HRS PRN TP PAIN 01/28/21 13:30 UNV Polyethylene Glycol (miraLAX) 17 gm PRN DAILY PRN PO CONSTIPATION 01/28/21 14:30 Divalproex Sodium (Depakote Er) 500 mg QHS PO 01/28/21 21:00 01/31/21 12:21 DC 01/30/21 19:35 Lidocaine (Lidoderm) 1 patch DAILY TD 01/29/21 18:00 02/09/21 09:00 Miscellaneous (Lidoderm Patch Removal) 1 ea QHS MC 01/29/21 21:00 02/08/21 20:50 Nystatin (Nystop) 1 bira PRN BID PRN TP REDNESS 01/30/21 19:00 Neomycin/ Polymyxin/ Bacitracin (Triple Antibiotic Ointment) 1 pkt PRN BID PRN TP SKIN PROTECTION 01/30/21 20:30 02/10/21 09:34 Divalproex Sodium (Depakote Er) 1,000 mg QHS PO 01/31/21 21:00 02/08/21 20:50 Clozapine (Clozaril) 25 mg QHS PO 01/31/21 21:00 02/03/21 22:06 DC 02/01/21 21:23 Trazodone HCl (Desyrel) 50 mg PRN QHS PRN PO INSOMNIA, MAY REPEAT X1 02/02/21 18:45 Mirtazapine (Remeron) 7.5 mg QHS PO 02/02/21 21:00 02/09/21 21:26 Clozapine (Clozaril) 25 mg DAILY PO 02/04/21 09:00 02/07/21 18:47 DC 02/07/21 17:20 Clozapine (Clozaril) 50 mg DAILY PO 02/08/21 09:00 02/10/21 09:28 I have reviewed the current psychotropics carefully including drug interactions. Risk benefit ratio favors no change other than as noted in my dictated progress note. Diagnosis: Problems: (1) Schizoaffective disorder, bipolar type (2) Impulse control disorder, unspecified (3) Anxiety disorder, unspecified (4) Schizophrenia, paranoid, chronic with acute exacerbation (5) Bipolar disorder, current episode mixed, severe, with psychotic features LUPE CASTELLANOS MD Feb 11, 2021 06:53
[2021-02-11] MEDS: traZODone 50 MG TABLET. PO SCH (08:34)
[2021-02-11] MEDS: cloZAPine 25 MG TABLET PO SCH (08:34)
[2021-02-11] MEDS: CYANOCOBALAMIN (VITAMIN B-12) 1,000 MCG TABLET. PO SCH (08:35)
[2021-02-11] MEDS: LIDOCAINE (700MG/PATCH) PATCH. TD SCH (09:00)
[2021-02-11] MEDS: NEOMY/BACITR/POLYMYXIN OINT PACKET. TP PRN (09:06)
[2021-02-11] MEDS: POLYVINYL ALCOHOL/POVIDONE/PF OPHTH SOLUTION DROPERETTE. OD PRN (09:06)
[2021-02-11] MEDS: CALCIUM CARBONATE 500 MG TAB.CHEW PO PRN (09:06)
[2021-02-11] MEDS: METHYL SALICYLATE/MENTHOL TOPICAL OINTMENT 57GM TUBE. TP PRN (09:06)
--- NOTE | 2021-02-11 14:35 | NUR ---
Transition Record was faxed to follow-up provider with the following elements: Reason for admission, procedures, tests, principal diagnosis, pending studies, patient instructions, 02/10 contact information for unit, phone number to obtain pending test results, plan for follow-up care, physician follow-up, advanced directive information, and medication list with dose, duration and instructions. This information was included in the following documents: History and physical, lab results, study results, progress notes, social work planning form, DC instruction form, patient visit summary, and medication reconciliation form. Date & time record faxed: 02/11/21 @ 1590 Record faxed to: Elias @ [facility] @ [phone] Record discussed with/ report given to: Elias
--- NOTE | 2021-02-11 21:15 | PDOC ---
Exam Note: Brannon Note: Please also refer to the separate dictated note~for this date of service dictated separately.~Patient seen individually. Discussed the patient with Nursing staff reviewed the chart.~Reviewed interim history and current functioning. Reviewed vital signs,~Labs/ Radiology~and current medications noted below. Continue current treatment with the changes noted in the dictated addendum note Assessment: Vital Signs/I&O: Vital Signs Date Time Temp Pulse Resp B/P (MAP) Pulse Ox O2 Delivery O2 Flow Rate FiO2 02/11/21 06:29 97.5 65 22 105/70 (82) 95 02/10/21 15:30 Room Air I & O 02/10/21 02/10/21 02/11/21 15:00 23:00 07:00 Intake Total 360 ml 240 ml Balance 360 ml 240 ml Current Medications: Meds: Current Medications Medications (Trade) Dose Ordered Sig/Flavio Route PRN Reason Start Time Stop Time Status Last Admin Dose Admin Olanzapine (ZyPREXA ZYDIS) 5 mg PRN Q2HRS PRN PO PSYCHOSIS 01/28/21 13:15 02/11/21 14:38 DC 02/02/21 01:21 Acetaminophen (Tylenol) 650 mg PRN Q6HRS PRN PO PAIN 01/28/21 13:30 02/11/21 14:38 DC 02/04/21 15:26 Calcium Carbonate/ Glycine (Tums) 500 mg PRN Q2HR PRN PO INDIGESTION 01/28/21 14:30 02/11/21 14:38 DC 02/11/21 09:06 Vitamin D (Vitamin D3) 50,000 unit QSA PO 01/29/21 16:00 02/11/21 14:38 DC 02/05/21 14:06 Docusate Sodium (Colace) 100 mg PRN DAILY PRN PO HARD STOOLS 01/28/21 13:30 02/11/21 14:38 DC Haloperidol (Haldol) 7.5 mg PRN Q6HRS PRN PO ANXIETY / AGITATION 01/28/21 13:30 01/28/21 20:10 DC Ibuprofen (Motrin) 400 mg PRN Q6HRS PRN PO INFLAMMATION 01/28/21 18:00 02/11/21 14:38 DC 02/11/21 09:06 Lorazepam (Ativan) 2 mg PRN Q6HRS PRN PO 2ND CHOICE ANXIETY/AGITATION 01/28/21 13:30 02/11/21 14:38 DC 02/10/21 13:03 Multi-Ingredient Ointment (Analgesic [place]) 1 bria PRN Q1HR PRN TP MUSCLE PAIN 01/28/21 13:30 02/11/21 14:38 DC 02/11/21 09:06 Nystatin (Nystop) 1 bria BID TP 01/28/21 21:00 01/30/21 19:00 DC 01/28/21 20:52 Trazodone HCl (Desyrel) 25 mg DAILY PO 01/29/21 09:00 02/11/21 14:38 DC 02/11/21 08:34 Trazodone HCl (Desyrel) 50 mg QHS PO 01/28/21 21:00 02/02/21 18:38 DC 02/01/21 21:23 Artificial Tears (Refresh Classic) 1 drop PRN Q6HRS PRN OD DRY EYE 01/28/21 14:30 02/11/21 14:38 DC 02/11/21 09:06 Cyanocobalamin (Vitamin B-12) 1,000 mcg DAILY PO 01/29/21 09:00 02/11/21 14:38 DC 02/11/21 08:35 Diphenhydramine HCl (Benadryl) 50 mg PRN Q6HRS PRN PO 1ST CHOICE ANXIETY/AGITATION 01/28/21 14:30 02/11/21 14:38 DC 02/01/21 21:45 Haloperidol Decanoate (Haldol Decanoate Im Extended Release) 100 mg [id number] IM 02/07/21 09:00 02/11/21 14:38 DC 02/07/21 13:18 Melatonin (Melatonin) 3 mg QHS PO 01/28/21 21:00 02/11/21 14:38 DC 02/08/21 20:50 Non-Formulary Medication (Menthol (Biofreeze)) 1 bria PRN Q6HRS PRN TP PAIN 01/28/21 13:30 UNV Polyethylene Glycol (miraLAX) 17 gm PRN DAILY PRN PO CONSTIPATION 01/28/21 14:30 02/11/21 14:38 DC Divalproex Sodium (Depakote Er) 500 mg QHS PO 01/28/21 21:00 01/31/21 12:21 DC 01/30/21 19:35 Lidocaine (Lidoderm) 1 patch DAILY TD 01/29/21 18:00 02/11/21 14:38 DC 02/09/21 09:00 Miscellaneous (Lidoderm Patch Removal) 1 ea QHS MC 01/29/21 21:00 02/11/21 14:38 DC 02/08/21 20:50 Nystatin (Nystop) 1 bria PRN BID PRN TP REDNESS 01/30/21 19:00 02/11/21 14:38 DC Neomycin/ Polymyxin/ Bacitracin (Triple Antibiotic Ointment) 1 pkt PRN BID PRN TP SKIN PROTECTION 01/30/21 20:30 02/11/21 14:38 DC 02/11/21 09:06 Divalproex Sodium (Depakote Er) 1,000 mg QHS PO 01/31/21 21:00 02/11/21 14:38 DC 02/08/21 20:50 Clozapine (Clozaril) 25 mg QHS PO 01/31/21 21:00 02/03/21 22:06 DC 02/01/21 21:23 Trazodone HCl (Desyrel) 50 mg PRN QHS PRN PO INSOMNIA, MAY REPEAT X1 02/02/21 18:45 02/11/21 14:38 DC Mirtazapine (Remeron) 7.5 mg QHS PO 02/02/21 21:00 02/11/21 14:38 DC 02/09/21 21:26 Clozapine (Clozaril) 25 mg DAILY PO 02/04/21 09:00 02/07/21 18:47 DC 02/07/21 17:20 Clozapine (Clozaril) 50 mg DAILY PO 02/08/21 09:00 02/11/21 14:38 DC 02/11/21 08:34 I have reviewed the current psychotropics carefully including drug interactions. Risk benefit ratio favors no change other than as noted in my dictated progress note. Diagnosis: Problems: (1) Schizoaffective disorder, bipolar type (2) Impulse control disorder, unspecified (3) Anxiety disorder, unspecified (4) Schizophrenia, paranoid, chronic with acute exacerbation (5) Bipolar disorder, current episode mixed, severe, with psychotic features EMANUEL,MAN M MD Feb 11, 2021 21:15
--- NOTE | 2021-02-11 22:46 | DS ---
DATE OF DISCHARGE: 02/11/2021 DISCHARGE SUMMARY/PSYCHIATRIC PROGRESS NOTE This note covers elements not covered in my initial note, 02/11. REASON FOR ADMISSION: Please refer to the admission history for details. HOSPITAL COURSE: Briefly, the patient is a 65-year-old female referred to us from [facility] by her primary care physician/psychiatrist and admitted by her court appointed guardian on account of an acute exacerbation of her schizophrenia, chronic paranoid type. The patient was shouting at unseen others, was increasingly agitated, believing she is a 11-year-old. She is refusing cares, hallucinating, delusional, and threw a computer at the nursing staff. Behaviors were deemed dangerous, unmanageable. She did spend extended periods of time in the past at [facility] and was admitted for inpatient psychiatric stabilization. SIGNIFICANT FINDINGS AND CLINICAL COURSE: Following admission, the patient was seen daily individually by myself from a psychiatric standpoint, medical followup, Dr. Mccain/Dr. Quach. The patient was extremely paranoid, yelling, screaming, agitated at admission. She was refusing her medications and was continued on Haldol decanoate 100 mg IM every 3 weeks and given the fact that she was extremely psychotic, despite this, she was started on Clozaril 25 mg daily with weekly blood counts and absolute neutrophil counts and then increased to 50 mg daily. She was noncompliant with treatment, but this was given to her daily mixed in food and fluids. Consideration was given to also increasing the Haldol Decanoate, but at this stage her court appointed guardian arranged for her transfer back to [facility]. I talked to ___, psychiatrist, at the [facility] prior to her transition back to them on 02/11. REVIEW OF SYSTEMS: Prior to discharge No CV, , pulmonary, eye, ENT system symptoms on review. Reliability poor. MENTAL STATUS EXAMINATION: Oriented to herself, situation. Speech rapid, loud. Abstraction fair. Computation impaired. She remained paranoid. No active suicidal or homicidal ideation. LABORATORY DATA: Reviewed. FINAL DIAGNOSES: Schizophrenia, chronic paranoid with acute exacerbation, rule out schizoaffective disorder, bipolar type, mixed with psychotic features; anxiety disorder, unspecified; impulse control disorder, unspecified. Rest unchanged from admission. DISCHARGE MEDICATIONS: Please refer to the MRAD. Psychiatric and medical followup at [facility]. Time for discharge day management greater than [address]: Manuel TID: [id number]
== END 2021-02-11 13:00 | DRG 885 ==
LOC: GEROPSY 11:50
PROVIDERS: ADMIT Psychiatry & Neurology Psychiatry; ATTEND Psychiatry & Neurology Psychiatry
DX: F20.0 Paranoid schizophrenia (principal); D64.9 Anemia, unspecified; E03.9 Hypothyroidism, unspecified; F63.9 Impulse disorder, unspecified; Z91.14 Patient's other noncompliance with medication regimen; Z91.19 Patient's noncompliance with other medical treatment and regimen; Z91.410 Personal history of adult physical and sexual abuse; K21.9 Gastro-esophageal reflux disease without esophagitis; E66.01 Morbid (severe) obesity due to excess calories; Z68.30 Body mass index [BMI] 30.0-30.9, adult; Z20.822 Contact with and (suspected) exposure to COVID-19
CPT/HCPCS: 36415; 80053; 80061; 80164; 81001; 82306; 82607; 83036; 83540; 83550; 83735; 84436; 84443; 84480; 85025; 85379; 86592; 87086; 87147; 93005; J1631; Q0163; U0003